=== PATIENT | female | born 1950 | race Caucasian/White ===

== ENCOUNTER 2016-05-05 18:15 | Inpatient (IN) | payer MEDICARE, OTHER ==
[~2016-05-05] VITALS: Ht 157.5 cm; Wt 166.2 kg
[2016-05-05 18:30] VITALS: BP 194/83
[2016-05-05] MEDS ORDERED: CYCLOBENZAPRINE 10 MG (FLEXERIL) TAB PO PRN (19:00)
[2016-05-05] MEDS ORDERED: ATORVASTATIN 20 MG (LIPITOR) TABLET PO SCH (21:00)
[2016-05-05] MEDS ORDERED: SIMvastatin 40 MG (ZOCOR) TAB PO SCH (21:00)
[2016-05-05] MEDS: inSUlin (REGULAR) HUMAN 1 UNIT/0.01 ML (CHARGE PER UNIT) SC SCH (21:43)
[2016-05-06 04:41] VITALS: BP 182/75
[2016-05-06] MEDS: inSUlin (REGULAR) HUMAN 1 UNIT/0.01 ML (CHARGE PER UNIT) SC SCH ×2 (05:48→10:45)
[2016-05-06] MEDS: GLIMEPIRIDE 2 MG (AMARYL) TAB PO SCH (06:46)
[2016-05-06] MEDS: LEVOTHYROXINE 150 MCG (LEVOTHROID) TAB PO SCH (06:46)
[2016-05-06 07:00] LABS: BASOPHILS % (AUTO) 0 % (0-10); EOSINOPHILS # (AUTO) 0.3 10^3/uL (0.0-0.3); EOSINOPHILS % (AUTO) 5 % (0-10); LYMPHOCYTES # (AUTO) 1.1 X 10^3 (1.0-4.0); LYMPHOCYTES % (AUTO) 20 % (12-44); MEAN CORPUSCULAR HEMOGLOBIN 27 PG (25-34); MEAN CORPUSCULAR HGB CONC 31 G/DL (32-36); MEAN CORPUSCULAR VOLUME 88 FL (80-99); MEAN PLATELET VOLUME 9.5 FL (7.4-10.4); MONOCYTES # (AUTO) 0.5 X 10^3 (0.0-1.0); MONOCYTES % (AUTO) 10 % (0-12); NEUTROPHILS # (AUTO) 3.3 X 10^3 (1.8-7.8); NEUTROPHILS % (AUTO) 65 % (42-75); PLATELET COUNT 260 10^3/uL (130-400); RED CELL DISTRIBUTION WIDTH 13.3 % (10.0-14.5); WHITE BLOOD COUNT 5.2 10^3/uL (4.3-11.0)
[2016-05-06] MEDS ORDERED: PIOGLITAZONE 30MG (ACTOS) TAB PO SCH (07:00)
[2016-05-06 07:23] LABS: ALBUMIN 2.9 G/DL (3.2-4.5); BILIRUBIN,TOTAL 0.5 MG/DL (0.1-1.0); CALCIUM 7.5 MG/DL (8.5-10.1); CREATININE SERUM 1.8 MG/DL (0.60-1.30); POTASSIUM 4.1 MMOL/L (3.6-5.0)
[2016-05-06] MEDS ORDERED: inSUlin NPH/REG (NovoLIN 70/30) CHARGE PER UNIT SQ SCH (08:45)
--- NOTE | 2016-05-06 08:57 | Physical Therapy Evaluation ---
PT Evaluation-General Medical Diagnosis Admission Date May 05, 2016 at 18:15 Medical Diagnosis: debility, post polio Onset Date: May 05, 2016 Therapy Diagnosis Therapy Diagnosis: impaired mobility, strength, endurance Height/Weight Height (Feet): 5 Height (Inches): 2.00 Weight (Pounds): 361 Weight (Ounces): 8.0 Precautions Precautions/Isolations: Fall Prevention, Standard Precautions Referral Physician: Tyler Reason for Referral: Evaluation/Treatment Medical History Pertinent Medical History: DM, HTN Additional Medical History morbid obesity, post polio Current History Patient was sitting down on the toilet and felt a "pop" and had pain in left leg. Could not get back up from the toilet. Reviewed History: Yes Social History Current Living Status: Other Family Entry Into Home: Ramp Patient states she has grandchildren living with her. She uses a scooter to get around the house and can ambulate just a few steps using bilateral axillary crutches. Prior/Core FIM Prior Level of Function Functional [place] Measure 0=Not Assessed/NA 4=Minimal Assistance 1=Total Assistance 5=Supervision or Setup 2=Maximal Assistance 6=Modified Baca 3=Moderate Assistance 7=Complete [place] Bed Mobility: 6 Transfers (B,C,W/C) (FIM): 6 Gait: 1 Wheelchair Mobility: 6 PT Evaluation-Current Subjective Patient in bed pre tx, agrees to PT. Patient states she has no pain at rest but with activity she has pain in her left lateral thigh. Pt/Family Goals get me better so I can go home Objective Patient Orientation: Normal For Age ROM/Strength ROM Lower Extremities general impaired ROM due to morbid obesity Strenght Lower Extremities right lower extremity (hip flexion 3/5, knee flexion 0/5, knee extension 0/5, dorsiflexion 0/5), left lower extremity (hip flexion 3-/5, knee flexion 2/5, knee extension 2/5, dorsiflexion 4/5) patient states she has never in her life been able to sit and fully extend her left knee Integumentary/Posture Bowel Incontinence: No Neuromuscular (Tone, Coordination, Reflexes) decreased tone and coordination in bilateral lower extremities Sensory Vision: Functional Hearing: Functional Sensation Right Lower Extremit: Intact Sensation Left Lower Extremity: Intact Transfers Functional Baca Measure 0=Not Assessed/NA 4=Minimal Assistance 1=Total Assistance 5=Supervision or Setup 2=Maximal Assistance 6=Modified [place] 3=Moderate Assistance 7=Complete IndependenceIRFPAI Quality Coding Scale 6 Independent with activity with or without an assistive device 5 Patient requires set up or clean up by helper. Patient completes activity by themselves 4 Supervision or touching assist (CGA). [place] provide cues , steadying assist 3 The helper provides less than half the effort to complete the activity 2 The helper provides more than half the effort to complete the activity 1 Dependent. The helper does all the effort to complete an activity 7 Patient refused to complete or attempt activity 9 The patient did not perform the activity before the current illness or injury 88 Not attempted due to Medical conditions or safety concerns Transfers (B, C, W/C) (FIM): 1 Scootin Rollin Roll Left to Right (QC): 3 Supine to/from Sit: 3 Sit to/from Stand: 1 bed t/f WC(FIM only if WC use): 1 Sit to Lying (QC): 2 Lying to Sitting/Side of Bed(Q: 2 Sit to Stand (QC): 1 Chair/Sle-yj-Ewpue Xfer(QC): 1 Car Transfer (QC): 88 Patient uses a sit to stand machine for standing and transfers. She was able to veterinary physiologist the parallel bars with max assist of 2 therapists. Gait Anticipated Mode of Locomotion: Wheelchair Gait (FIM): 0 Walk 10 feet (QC): 88 Walk 50 ft with 2 Turns(QC): 88 Walk 150 ft (QC): 88 Walking 10ft/uneven surface-QC: 88 Comments/Gait Description Patient states she ambulated a few feet using bilateral axillary crutches and it sounds like she uses them unsafely. She described angling them under her arms and using them to help push her forward and bearing weight through her armpits in order to stand. Wheelchair Training Does the Pt Use a Wheelchair?: Yes Wheelchair (FIM): 5 Distance: 150' Wheelchair Level of Assist: 5 Wheel 50 ft with 2 turns (QC): 4 Wheel 150 ft (QC): 4 Type of Wheelchair: Manual Patient was able to propel a manual wheelchair 150' including 2 turns with SBA. She did have some difficulty with the turns due to her weight but she was able to do it without assist. Stairs If not tested on admit;explain Patient not safe to attempt even one step at this time. Balance Sitting Static: Normal Sitting Dynamic: Normal Standing Static: Poor Standing Dynamic: Poor Treatment Patient stood in the parallel bars x 2 with max assist of 2 therapists. Assessment/Needs Patient has profoundly impaired mobility, strength, and endurance due to debility, obesity, and post polio syndrome. Rehab Potential: Poor PT Short Term Goals Short Term Goals Time Frame: May 13, 2016 Transfers (B,C,W/C) (FIM): 2 PT Casing Tester Goals Casing Tester Goals PT Casing Tester Goals Time Frame: May 27, 2016 Transfers (B,C,W/C) (FIM): 3 Sit to Lying (QC): 4 Lying-Sitting on Side/Bed(QC): 4 Sit to Stand (QC): 2 Rollin Roll Left to Right (QC): 4 Chair/Bab-ol-Jzyyh Xfer(QC): 2 Car Transfer (QC): 88 Wheelchair (FIM): 6 Distance: 200' Wheel 50 feet with 2 turns (QC: 6 PT Plan Problem List Problem List: Activity Tolerance, Functional Strength, Safety, Balance, Gait, Transfer, Bed Mobility, ROM Treatment/Plan Treatment Plan: Continue Plan of Care Treatment Plan: Bed Mobility, Education, Functional Activity Carol, Functional Strength, Group Therapy, Gait, Safety, Therapeutic Exercise, Transfers Treatment Duration: May 27, 2016 # of days/week 5-6 Visits Per Week: 10-11 Minutes/Day (M-F): 60-90 Minutes/Day (Sat/Herman): 15-30 Pt/Family Agrees w/Plan: Yes Safety Risks/Education Patient Education: Transfer Techniques, Correct Positioning, W/C Management, Safety Issues Teaching Recipient: Patient Teaching Methods: Demonstration, Discussion Response to Teaching: Reinforcement Needed Discharge Recommendations Plan Patient will perform bed mobility and transfers, balance and endurance training , functional strengthening, gait training, ROM/stretching, education, to improve functional mobility and independence at home. Therapy D/C Recommendations: Home w/ Family Support, Fpc (TCU/NH) Time/GCodes Time In: 800 Time Out: 900 Total Billed Treatment Time: 60 Total Billed Treatment 1 visit EVM 15 min [facility] 15 min FA 30 min LENORE EGAN PT May 06, 2016 08:57
[2016-05-06] MEDS ORDERED: VERAPAMIL PM 100 MG (VERELAN PM) CAP.SR.24H PO SCH (09:00)
[2016-05-06] MEDS: VERAPAMIL SR 240 MG (CALAN SR) TAB PO SCH (09:10)
[2016-05-06] MEDS: MICONAZOLE 2% POWDER (DESENEX AF) 90 GM TOP SCH ×2 (10:37→20:43)
[2016-05-06] MEDS ORDERED: INSN1U SQ (11:07)
[2016-05-06] MEDS ORDERED: TRAM50TA2 PO (11:07)
[2016-05-06] MEDS ORDERED: CALC-654 PO (11:07)
[2016-05-06] MEDS ORDERED: HYDR-3812 PO (11:07)
[2016-05-06] MEDS ORDERED: LEVO150T6 PO (11:07)
[2016-05-06] MEDS ORDERED: PEDI18TA2 PO (11:07)
[2016-05-06] MEDS ORDERED: INSU100V16 SQ (11:07)
[2016-05-06] MEDS ORDERED: SIMV40TA4 PO (11:07)
[2016-05-06] MEDS ORDERED: VERA240T98 PO (11:07)
[2016-05-06] MEDS ORDERED: GLIM2TAB PO (11:07)
[2016-05-06] MEDS ORDERED: OMG1KC PO (11:07)
[2016-05-06] MEDS ORDERED: PIOG30TA38 PO (11:07)
--- NOTE | 2016-05-06 11:07 | ST Cognitive Linguistic Eval ---
Speech Evaluation-General Medical Diagnosis debility, post polio Onset Date: May 05, 2016 Therapy Diagnosis Therapy Diagnosis: Questionable Cognitive Impairment Precautions Precautions/Isolations: Fall Prevention, Standard Precautions Referral Referring Physician: Dr. Manuel Scott Reason for Referral: Evaluation/Treatment Cognitive Evaluation Medical History Pertinent Medical History: DM, HTN Reviewed History: Yes Social History Current Living Status: Other Family Speech PLF-Current Status Prior Level of Function The patient denied challenges with cognition, speech, or language prior to or throughout her recent hospitalization. Subjective The patient was recently admitted to [facility] Rehabilitation unit with a diagnosis of debility. The patient greeted the clinician appropriately upon entrance and agreed to participate in the cognitive evaluation on this date. Language Eval: Auditory Comprehends Simple Yes/No Ques: Functional Indent/Objects Multiple Griffin: Functional Ident/Pics in Multiple Griffin: Functional Follows 1-Step Commands: Functional Follows Complex Directions: Functional Follows General Conversations: Functional Language Eval: Verbal Language Completes Spontaneous Greeting: Functional Produces Auto, Serial Info: Functional Imitates Simple Words/Phrases: Functional Word Finding: Functional Requests Basic Needs: Functional States Basic Personal Info: Functional Expresses Complex Ideas: Functional Cognitive Patient Orientation The patient is oriented to date, day of week, month, year, location, and name ( independently). Objective Cognitive Domain Attention: WNL Memory: WNL Problem Solving: Functional Executive Functions: WNL Objective Impression The patient demonstrated cognitive linguistic skills within normal limits for completion of ADL's. Communication/Social Cognition Comprehension: 6 Expression: 6 Social Interaction: 6 Problem Solvin Memory: 6 Speech Patient Assess Expression of Ideas/Wants: Expression (4) Understanding [place] Content: Understands (4) Brief Interview-Mental Status: Yes Repetition of Three Words: Three (3) Temporal Orientation: Year: Correct (3) Temporal Orientation: Month: Accurate within 5 days(2) Temporal Orientation: Day: Correct (1) Recall : Wear to say "Sock": Yes, no cue required (2) Recall : Color: Yes, no cue required (2) Recall : Bed: Yes, no cue required (2) Speech-Plan Treatment Plan Speech Therapy Treatment Plan: Discontinue ST Evaluation, only. Rehab Potential: Good Safety Risks/Education Teaching Recipient: Patient Teaching Methods: Discussion Response to Teaching: Verbalize Understanding Education Topics Provided: Plan of Care Time Speech Therapy Time In: 10:15 Speech Therapy Time Out: 10:30 Total Billed Time: 15 Billed Treatment Time 1, JEANNENDJARRETT HAMILTON May 06, 2016 11:07
--- NOTE | 2016-05-06 11:17 | HISTORY AND PHYSICAL ---
DATE OF ADMISSION: 05/05/2016 CHIEF COMPLAINT: Difficulty with walking. 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 She lives in a one-story house in [place], [place] caring for her grandchildren. She had a fall and had pain in her posterior left thigh which was her good leg. She is now dependent for mobility and complains of pain in the posterior left thigh with weight-bearing. 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 She also has chronic venostasis in both legs and they are wrapped. She is also insulin-dependent diabetic. No fracture was seen on imaging of the left leg. Accu-Cheks were being monitored q.i.d. before meals and at bedtime. A1c in February was 6.7. The patient indicates her blood sugars normally run in 250 to 200 range. She is morbidly obese PAST MEDICAL HISTORY: 1. Hypertension. 2. Insulin-dependent diabetes mellitus. 3. Post polio. PAST SURGICAL HISTORY: She indicates she has had tendon transfers on her right leg as a child for treatment of her polio which did not help her. She had been fairly dependent upon her left leg for stand- pivot transfers prior to her last fall. She brings her axillary crutches with her to the rehab unit where she was referred to [facility] for ongoing rehabilitation. ALLERGIES: PENICILLIN SOCIAL HISTORY: No alcohol or tobacco. She indicates that she has a handicap assessable wheelchair van with hand control. REVIEW OF SYSTEMS: Ten-point review of systems significant for chronic right leg weakness and left leg weakness and posterior thigh pain. She is currently mod assist for lower body dressing and set up for upper body dressing, SHe is mod assist for bathing and dependent for toileting. She is set up for eating and grooming at the wheelchair level of function. She has good + upper extremity strength and active range of motion.She is dependent for transfers and non- ambulatory Her H&H on 05/05 is 8.7/28.8, WBC 4.8. Platelet count 221,000. Her hemoglobin A1c on 05/04 is 7.6. Her serum triglycerides are 136, total cholesterol over HDL 5.1. Her BUN and creatinine on 05/05 was 46/2.1, albumin is 2.7, calcium 7.6 Her BNP 15. SOCIAL HISTORY: She states that her PCP is Dr. Hawkins in [place], [place]. MEDICATIONS: 1. NovoLog sliding scale insulin regimen A. 2. Novolin 70/30 50 units subcutaneous daily. 3. Glimepiride 2 mg p.o. daily. 4. Tramadol 50 mg p.o. q.6 hours as needed for moderate pain. 5. Hydrocodone APAP 5/325, 1 tablet p.o. q.4 hours p.r.n. severe pain. 6. Levothyroxine 100 mcg p.o. daily. 7. Pioglitazone 30 milligrams p.o. daily. 8. Verapamil ER 240 mg p.o. daily. 9. Simvastatin 40 mg p.o. daily. 10. Flexeril 10 mg p.o. t.i.d. p.r.n. spasm. PHYSICAL EXAMINATION: Significant for a morbidly obese female, appearing her stated age, alert and oriented in no acute distress, lying in bed. VITAL SIGNS: Within normal limits. She is afebrile. HEENT: Vision, speech, hearing, grossly intact. No oral lesion is noted. NECK: Supple without mass. HEART: Regular rhythm. CHEST: The chest is clear. ABDOMEN: Obese, soft, bowel sounds present.Fungal appearing rash under abdominal pannus EXTREMITIES: The patient has 2+ edema both legs and they are MISHA wrapped. MUSCULOSKELETAL: The patient has functional active range of motion and strength in both upper extremities, both lower extremities limited due to obesity, chronic venostasis and MISHA wrapping. NEUROLOGIC: Sensation is grossly intact to touch. Cognition appears intact. Strength as per above for upper extremities and lower extremities difficult to assess due to obesity, edema and wraps. She has 3/5 strength Rt Hip Flex and 0/5 distal RLE. Left Lower extremity strength hip flex 3-/5 knee flex 2/5 knee ext 2/5 dorsiflexion at ankle 4/5 There is tenderness in the posterior thigh region on the left.She has limited ROM Both lower extremities due to obesity and Peripheral edema IMPRESSION: 1. Ambulatory dysfunction secondary to post polio syndrome, aggravated by fall with resulting left posterior thigh pain, sciatica versus pyriformis syndrome 2. Morbid obesity. 3. Insulin-dependent diabetes mellitus. 4. Hypothyroidism on replacement. 5. Hypertension, controlled with medication. 6. Chronic venostasis both lower limbs, currently with MISHA wrap. 7. Anemia 8. Chronic renal insufficiency due to her diabetes mellitus and hypertension. 9. Hypoalbuminemia. 10. Hypocalcemia. 11. Fungal rash abdomen PLAN: The patient will have a comprehensive program of inpatient rehabilitation with goal of maximizing level of functional independence prior to discharge home with family and home health care. The patient will have PT/OT 90 minutes per day, each discipline, 5 days week for gait strengthening, conditioning, balance, ADLs, any patient/family/caregiver training necessary, any adaptive equipment and training necessary, modalities for pain control. Continue with Misha wraps to decrease peripheral edema. Will follow-up what is most appropriate for DVT prophylaxis most likely Lovenox subcutaneous; I don't know how she will tolerate SCDs. Speech therapy to do cognitive assessment and treat as indicated. Rehabilitation nursing assist with bowel, bladder, skin care, medication administration, MISHA wrap administration, pain management. office services specialist to assist with discharge planning, community reentry. Continue current diabetic diet. Consult Dr. Dunaway for medical management. Accu-Cheks q.i.d. before meals and at bedtime. Continue current medications, pain management. Consider dietary consult. office services specialist to assist with discharge planning, community reentry. ESTIMATED LENGTH OF STAY: Two to three weeks. PROGNOSIS: Rehab prognosis appears for goal of discharging home with prior level of function, hopefully home with her family with home health care. DIET: Carb consistent. CODE STATUS: Full code. POST ADMISSION ASSESSMENT: The preadmission screen agrees with the post admission assessment that the patient is a good candidate for inpatient rehabilitation. She appears to be well motivated to participate in 3 hours of therapy a day. He should be able tolerate 3 hours of therapy a day. She should benefit from the 3 hours of therapy a day. She has reasonable discharge plan, reasonable discharge rehabilitation goals and a supportive family. She has various comorbidities that need to be closely monitored with medications and treatments adjusted on a daily basis as needed. These include ongoing pain management, management of her diabetes mellitus, hypertension and morbid obesity. Barriers to discharge for this patient who was reported to have been modified independent prior to this is for her to be modified independent to supervision for ADLs, mobility skills prior to discharge home with family and home health care. Risks for this patient include: 1. Recurrent fall. 2. Fracture. 3. DVT. 4. Pulmonary embolism. 5. Urinary retention. 6. UTI. 7. Respiratory infection. 8. Aspiration. 9. Skin breakdown. 10. Contractures. 11. Poorly controlled pain. 12. Diabetes mellitus. 13. And poorly controlled hypertension. Job ID: [id number] Dictated Date: 05/05/2016 19:17:22 General Counselor Date: 05/06/2016 10:33:18/stanton TERRELL
--- NOTE | 2016-05-06 11:53 | Occupational Therapy Eval ---
OT Evaluation-General/PLF Medical Diagnosis Admission Date May 05, 2016 at 18:15 Medical Diagnosis: debility, post polio Onset Date: May 03, 2016 Therapy Diagnosis Therapy Diagnosis: decr self care, decr activity ada, weakness, decr funct mobility Height/Weight Height (Feet): 5 Height (Inches): 2.00 Weight (Pounds): 361 Weight (Ounces): 8.0 Precautions Precautions/Isolations: Fall Prevention, Standard Precautions Safety Interventions: Reorient-PRN Weight Bear Status Weight Bearing Restriction: Weight Bearing/Tolerated Referral Physician: Tyler Referral Reason: Evaluation/Treatment Medical History Pertinent Medical History: DM, HTN, Hypothroidism, Renal Insufficiency (chronic ) Additional Medical History Chronic venous stasis bilat LEs, morbid obesity, anemia, hypoalbuminemia, hypocalcemia Current History Fell at home, admitted to [facility]. Has post polio syndrome R LE and piriformis syndrome (polio at 6 months of age) Reviewed History: Yes Social History Home: Single Level Current Living Status: Other Family Entry Into Home: Ramp ADL-Prior Level of Function ADL PLOF Comments Pt reported that she has been able to manage all of her basic self care needs except she occasionally needs help getting socks on R foot. She also does all her IADLs except vacuuming and drives an accessible van with hand controls from her power chair. She transfers at home with crutches and gets around in her home with power chair. She sleeps in her recliner. 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 Pain rated 0/10 Appearance Alert, cooperative Mental Status/Objective Patient Orientation: Person, Place, Time, Situation Current Glasses/Contacts: Yes Hearing Aids: No Dentures/Partials: No Hand Dominance: Right Upper Extremity ROM Grossly WFL bilat. Some arthritic changes in hands Upper Extremity Strength grossly 4+/5 bilat but not strong enough to do transfers with crutches Edema: Bilat hronic edema in lower legs, wrapped in sherwin wraps today ADL-Treatment Functional [place] Measure 0=Not Assessed/NA 4=Minimal Assistance 1=Total Assistance 5=Supervision or Setup 2=Maximal Assistance 6=Modified [place] 3=Moderate Assistance 7=Complete IndependenceIRFPAI Quality Coding Scale 6 Independent with activity with or without an assistive device 5 Patient requires set up or clean up by helper. Patient completes activity by themselves 4 Supervision or touching assist (CGA). Rose provide cues , steadying assist 3 The helper provides less than half the effort to complete the activity 2 The helper provides more than half the effort to complete the activity 1 Dependent. The helper does all the effort to complete an activity 7 Patient refused to complete or attempt activity 9 The patient did not perform the activity before the current illness or injury 88 Not attempted due to Medical conditions or safety concerns Eating (FIM): 7 (No dentures. Able to cut food and get it to her mouth without assistance or devices) Eating (QC): 6 Grooming (FIM): 5 (Setup, at sink, to brush teeth and comb hair. Washed face and hands in shower,s etup. No makeup) Oral Hygiene (QC): 5 Bathing (FIM): 4 (80% Able to wash and dry all parts except lwoer legs, in wheeled shower chair. Grab bars, hand held shower. Able to lift tummy and wash underneath it. At home lifts feet up on edge of bathtub to wash them as she is getting out of the shower. Does not use long handled brush on lower legs) Bathing Location: L Arm, R Arm, L Upper Leg, R Upper Leg, Chest, Abdomen, Buttocks, Perineal Area Shower/Bathe Self (QC): 3 Upper Body Dressing (FIM): 5 (Setup. Hooked bra in back and turned it around. Shirt over head without help) Upper Body Dressing (QC): 3 Lower Body Dressing (FIM): 3 (Does not wear under pants. Able to don skirt on over head with setup but not able to get slipper socks on or off feet. ) Lower Body Dressing (QC): 5 (Setup. Wears only skirts - no underwear) On/Off Footwear (QC): 1 (Dependant) Toileting (FIM): 1 (Unable to manage clothing, hygiene. Bariatric BSC, using sit to stand lift) Toileting Hygiene (QC): 1 Transfers (B, C, W/C) (FIM): 1 (Sit to stand lift) Toilet/Commode Transfer (FIM): 1 (Sit to stand lift, to bariatric BSC) Toilet Transfer (QC): 1 Shower Transfer (FIM): 1 (Sit to stand lift to wheeled shower chair, then transported to shower room) Other Treatments Pt was transferred back into bed with sit to stand lift, two people needed to pull her up in bed. $ rails up, all needs met Education OT Patient Education: Modified ADL techniques, Progress toward Goal/Update tx plan, Purpose of tx/functional activities, Rehab process, Safety issues, Transfer techniques, Use of adapted equipment Teaching Recipient: Patient Teaching Methods: Demonstration, Discussion Response to Teaching: Verbalize Understanding, Return Demonstration, Reinforcement Needed OT Short Term Goals Short Term Goals Time Frame: May 13, 2016 Lower Body Dressing(FIM): 4 Toileting(FIM): 3 Toilet/Commode Transfer(FIM): 2 Additional Short Term Goals: 2-Verbalize Understanding, 3-ImproveStrength/Carol 1=Demonstrate adherence to instructed precautions during ADL tasks. 2=Patient will verbalize/demonstrate understanding of assistive devices/ modifications for ADL. 3=Patient will improve strength/tolerance for activity to enable patient to perform ADL's. OT Strapper Operator Goals Skilled Nursing Goals Time Frame: May 27, 2016 Eating (FIM): 7 Eating (QC): 6 Groomin Oral Hygiene (QC): 6 Bathing(FIM): 5 Shower/Bathe Self (QC): 5 Upper Body Dressing(FIM): 6 Upper Body Dressing (QC): 6 Lower Body Dressing(FIM): 6 Lower Body Dressing (QC): 6 On/Off Footwear (QC): 6 Toileting(FIM): 6 Toileting Hygiene (QC): 6 Toilet/Commode Transfer(FIM): 6 Toilet/Commode Transfer (QC): 6 Shower Transfer(FIM): 6 Additional Goals: 2-Verbalize Understanding, 3-ImproveStrength/Carol 1=Demonstrate adherence to instructed precautions during ADL tasks. 2=Patient will verbalize/demonstrate understanding of assistive devices/ modifications for ADL. 3=Patient will improve strength/tolerance for activity to enable patient to perform ADL's. OT Education/Plan Problem List/Assessment Assessment: Decreased Activ Tolerance, Decreased UE Strength, Dependent Transfers, Impaired Bed Mobility, Impaired Funct Balance, Impaired Self-Care Skills Pt would benefit from skilled OT to increase her independence in basic transfers and self care to allow her to safely return to her home to live independently and decrease caregiver burden Discharge Recommendations Plan/Recommendations: Continue POC Target Placement home Treatment Plan/Plan of Care Treatment,Training & Education: Yes Patient would benefit from OT for education, treatment and training to promote independence in ADL's, mobility, safety and/or upper extremity function for ADL' s. Plan of Care: ADL Retraining, Functional Mobility, Group Exercise/Act as Ind ( education, exercise, activity tolerance, functional activities, socialization), UE Funct Exercise/Act, UE Neuromus Re-Ed/Coord, W/C Management Training Treatment Duration: May 27, 2016 # of days/week 5-6 Visits Per Week: 10-11 Minutes/Day (M-F): 75-90 Agreement: Yes Rehab Potential: Good Time/GCodes Start Time: 09:00 Stop Time: 10:15 Total Time Billed (hr/min): 75 Billed Treatment Time visit, 15 minutes evaluation high complexity, 60 minutes ADL RADHA LIN OT May 06, 2016 11:53
[2016-05-06] MEDS ORDERED: inSUlin ASPART (NovoLOG) 1 UNIT/0.01 ML (CHARGE PER UNIT) SC SCH (16:00)
[2016-05-06] MEDS ORDERED: inSUlin ASPART (NovoLOG) 1 UNIT/0.01 ML (CHARGE PER UNIT) SQ SCH (16:00)
--- NOTE | 2016-05-06 16:26 | Therapy Group Daily Note ---
Therapy Daily Group Note Patient Education Topic Other List Below (Frality Syndrome and Prevention) Exercises LE Seated Exercise, UE Exercise Other/Notes PT used sit to stand lift to transfer pt from bed to W/C. Pt maneuvered w/c to [facility] for group. Pt actively participated in OT/PT group. Group consisted of introductions (name, place living, place you'd rather be instead of here), socialization, education on Frailty Syndrome and prevention, UE/LE seated exercises with resistance and other benefits of exercise. Pt contributed to discussions appropriately and demonstrated knowledge of topic by answering verbal questions. Pt was able to complete UE/LE seated exercises. After therapy, pt sitting in w/c asked to use BSC. PT and nursing transferred pt from W/C to BSC to use. Pt left with call light and all needs met. Start Time: 13:00 Stop Time: 14:10 Total Billed Treatment Time: 70 Total Billed Treatment 1, GRP NELYARACELIS NOLAND ASSOCIATE PROFESSOR OF GEOLOGY May 06, 2016 16:26
[2016-05-06 17:40] VITALS: BP 165/78
[2016-05-06] MEDS: inSUlin ASPART (NovoLOG) 1 UNIT/0.01 ML (CHARGE PER UNIT) SQ SCH (17:59)
--- NOTE | 2016-05-06 18:13 | PM & R (SOAP) Progress Note ---
Subjective Subjective/Events-last exam Patient was seen in HER ROOM THIS am aDJUSTING WEEL TO UNIT rn CHANGED MISHA WRAPS TODAY mEDS ADJUSTED BY cLINICAL pHARMACIST dISCUSSED CASE WITH HIM AND dr Barnes pATIENT MOD ASSIST FOR TRANSFERS.Current labs noted.Discussed case with RN Topical care for area under abdominal pannus. Objective Exam Last Set of Vital Signs Vital Signs Date Time Temp Pulse Resp B/P Pulse Ox O2 Delivery O2 Flow Rate FiO2 05/06/16 09:00 Room Air 05/06/16 04:41 97.6 82 20 182/75 97 Capillary Refill : I&O Bad tableGeneral: Alert, Oriented X3, Cooperative, No Acute Distress HEENT: Atraumatic, PERRLA, EOMI, Mucous Memb Moist/[place] Neck: Supple Lungs: Clear to Auscultation Heart: Regular Rate Abdomen: Normal Bowel Sounds, Soft, No Tenderness Extremities: Other (chronic venousstasis with legs wrapped) Neuro: Other (Weaknees both lower extremities Rt >lleft with tenderness left post thigh) Results Lab Laboratory Tests 05/05/16 21:36: Glucometer 203H 05/06/16 05:18: Glucometer 148H 05/06/16 06:26: Alanine Aminotransferase (ALT/SGPT) 19, Albumin 2.9L, Alkaline Phosphatase 66, Anion Gap 10, Aspartate Amino Transf (AST/SGOT) 24, BUN/Creatinine Ratio 22, Basophils # (Auto) 0.0, Basophils (%) (Auto) 0, Blood Urea Nitrogen 39H, Calcium Level 7.5L, Carbon Dioxide Level 20L, Chloride Level 111H, Creatinine 1.80H, Eosinophils # (Auto) 0.3, Eosinophils (%) (Auto) 5, Estimat Glomerular Filtration Rate 28, Glucose Level 155H, Hematocrit 28L, Hemoglobin 8.7L, Lymphocytes # (Auto) 1.1, Lymphocytes (%) (Auto) 20, Mean Corpuscular Hemoglobin 27, Mean Corpuscular Hemoglobin Concent 31L, Mean Corpuscular Volume 88, Mean Platelet Volume 9.5, Monocytes # (Auto) 0.5, Monocytes (%) (Auto) 10, Neutrophils # (Auto) 3.3, Neutrophils (%) (Auto) 65, Platelet Count 260, Potassium Level 4.1, Red Blood Count 3.20L, Red Cell Distribution Width 13.3, Sodium Level 141, Total Bilirubin 0.5, Total Protein 6.0L, White Blood Count 5.2 05/06/16 10:44: Glucometer 189H 05/06/16 15:28: Glucometer 117H Assessment/Plan Assessment Post-polio syndrome Fall with left leg pain IDDM Morbid obesity Chronic venous stasis BLES Plan Continue PT/OT ST has signed off Blood pressure elevated-DR Barnes to see Team CONference hedl earlier today See report for full functional update and POC and ELOS Adjust meds as needed Continue Misha wraps NILDA DYER MD May 06, 2016 18:13
[2016-05-06] MEDS: ATORVASTATIN 10 MG (LIPITOR) TABLET PO SCH (20:43)
[2016-05-06] MEDS: inSUlin ASPART (NovoLOG) 1 UNIT/0.01 ML (CHARGE PER UNIT) SC SCH (21:00)
[2016-05-06] MEDS ORDERED: SIMvastatin 40 MG (ZOCOR) TAB PO SCH (21:00)
[2016-05-07 04:08] VITALS: BP 160/73
[2016-05-07 05:53] LABS: BASOPHILS % (AUTO) 0 % (0-10); EOSINOPHILS # (AUTO) 0.2 10^3/uL (0.0-0.3); EOSINOPHILS % (AUTO) 4 % (0-10); LYMPHOCYTES # (AUTO) 1.1 X 10^3 (1.0-4.0); LYMPHOCYTES % (AUTO) 23 % (12-44); MEAN CORPUSCULAR HEMOGLOBIN 28 PG (25-34); MEAN CORPUSCULAR HGB CONC 31 G/DL (32-36); MEAN CORPUSCULAR VOLUME 88 FL (80-99); MEAN PLATELET VOLUME 9.2 FL (7.4-10.4); MONOCYTES # (AUTO) 0.5 X 10^3 (0.0-1.0); MONOCYTES % (AUTO) 9 % (0-12); NEUTROPHILS # (AUTO) 3.1 X 10^3 (1.8-7.8); NEUTROPHILS % (AUTO) 63 % (42-75); PLATELET COUNT 249 10^3/uL (130-400); RED BLOOD COUNT 3.09 10^6/uL (4.35-5.85); RED CELL DISTRIBUTION WIDTH 13.2 % (10.0-14.5); WHITE BLOOD COUNT 4.9 10^3/uL (4.3-11.0)
[2016-05-07] MEDS: inSUlin ASPART (NovoLOG) 1 UNIT/0.01 ML (CHARGE PER UNIT) SC SCH ×4 (06:00→20:38)
[2016-05-07 06:10] LABS: ALBUMIN 2.9 G/DL (3.2-4.5); BILIRUBIN,TOTAL 0.5 MG/DL (0.1-1.0); CALCIUM 7.5 MG/DL (8.5-10.1); CREATININE SERUM 1.63 MG/DL (0.60-1.30); TOTAL PROTEIN 5.9 G/DL (6.4-8.2)
[2016-05-07] MEDS: LEVOTHYROXINE 150 MCG (LEVOTHROID) TAB PO SCH (06:35)
[2016-05-07] MEDS: GLIMEPIRIDE 2 MG (AMARYL) TAB PO SCH (06:35)
[2016-05-07] MEDS: PIOGLITAZONE 30MG (ACTOS) TAB PO SCH (06:35)
[2016-05-07] MEDS: inSUlin ASPART (NovoLOG) 1 UNIT/0.01 ML (CHARGE PER UNIT) SQ SCH ×3 (06:36→16:00)
[2016-05-07] MEDS ORDERED: inSUlin NPH (NovoLIN N) 1 UNIT/0.01 ML (CHARGE PER UNIT) SQ SCH (07:00)
--- NOTE | 2016-05-07 07:11 | Progress Note (SOAP) ---
Subjective Subjective/Events-last exam patient has post polio syndrome and now persistent weakness of the right leg. Patient had a fall in the bathroom and landed on the stools and hurt the left thigh. Patient has polio the right leg and had surgery on. Patient has motorized wheelchair and uses crutches 1 into the restroom and fell on the stool. Left leg polyp and gave way and now hurts. Family history father diabetic mother and father heart attack. Denies asthma TB lung disease cancer area Patient has a history of ambulatory dysfunction. Diabetes. Hypothyroid. Hypertension. Chronic renal insufficiency. Morbid obesity Objective Exam Vital Signs Date Time Temp Pulse Resp B/P Pulse Ox O2 Delivery O2 Flow Rate FiO2 05/07/16 04:08 96.8 85 20 160/73 97 Room Air 05/06/16 20:30 Room Air 05/06/16 17:40 96.8 74 18 165/78 100 Room Air 05/06/16 09:00 Room Air I & O 05/07/16 07:00 Intake Total 1160 ml Balance 1160 ml Capillary Refill : General Appearance: No Apparent Distress WD/WN HEENT: Normal ENT Inspection Neck: Full Range of Motion Normal Inspection Respiratory: Chest Non Tender Lungs Clear Normal Breath Sounds No Accessory Muscle Use No Respiratory Distress Cardiovascular: Regular Rate, Rhythm No Murmur Gastrointestinal: non tender soft Results Lab Laboratory Tests 05/06/16 10:44: Glucometer 189H 05/06/16 15:28: Glucometer 117H 05/06/16 20:46: Glucometer 81 05/07/16 05:40: Alanine Aminotransferase (ALT/SGPT) 21, Albumin 2.9L, Alkaline Phosphatase 69, Anion Gap 11, Aspartate Amino Transf (AST/SGOT) 30, BUN/Creatinine Ratio 22, Basophils # (Auto) 0.0, Basophils (%) (Auto) 0, Blood Urea Nitrogen 36H, Calcium Level 7.5L, Carbon Dioxide Level 20L, Chloride Level 112H, Creatinine 1.63H, Eosinophils # (Auto) 0.2, Eosinophils (%) (Auto) 4, Estimat Glomerular Filtration Rate 32, Glucose Level 66L, Hematocrit 27L, Hemoglobin 8.5L, Lymphocytes # (Auto) 1.1, Lymphocytes (%) (Auto) 23, Mean Corpuscular Hemoglobin 28, Mean Corpuscular Hemoglobin Concent 31L, Mean Corpuscular Volume 88, Mean Platelet Volume 9.2, Monocytes # (Auto) 0.5, Monocytes (%) (Auto) 9, Neutrophils # (Auto) 3.1, Neutrophils (%) (Auto) 63, Platelet Count 249, Potassium Level 4.0, Red Blood Count 3.09L, Red Cell Distribution Width 13.2, Sodium Level 143, Total Bilirubin 0.5, Total Protein 5.9L, White Blood Count 4.9 05/07/16 05:41: Glucometer 66L Assessment/Plan Assessment/Plan Assess & Plan/Chief Complaint pain in the left thigh causing difficulty in getting around better Postpolio syndrome. Ambulatory dysfunction. Diabetes. Hypothyroid. Hypertension. Chronic renal insufficiency area Diagnosis/Problems: Clinical Quality Measures DVT/VTE Risk/Contraindication: Risk Factor Score Per Nursin RFS Level Per Nursing on Admit: 4+=Very High ERASTO TRAMMELL DO May 07, 2016 07:10
--- NOTE | 2016-05-07 08:17 | PM & R (SOAP) Progress Note ---
Subjective Subjective/Events-last exam Patient was seen in her room this AM Patient Max assist of 2 to washing tub operator the // Bars Objective Exam Last Set of Vital Signs Vital Signs Date Time Temp Pulse Resp B/P Pulse Ox O2 Delivery O2 Flow Rate FiO2 05/07/16 04:08 96.8 85 20 160/73 97 Room Air Capillary Refill : I&O Intake and Output 05/06/16 23:59 Intake Total 1210 ml Balance 1210 ml Intake Oral 1210 ml # Voids 6 # Bowel Movements 2 General: Alert, Oriented X3, Cooperative, No Acute Distress HEENT: Atraumatic, PERRLA, EOMI, Mucous Memb Moist/[place] Neck: Supple Lungs: Clear to Auscultation Heart: Regular Rate Abdomen: Normal Bowel Sounds, Soft, No Tenderness Extremities: Other (chronic venousstasis with legs wrapped) Neuro: Other (Weaknees both lower extremities Rt >lleft with tenderness left post thigh) Results Lab Laboratory Tests 05/05/16 21:36: Glucometer 203H 05/06/16 05:18: Glucometer 148H 05/06/16 06:26: Alanine Aminotransferase (ALT/SGPT) 19, Albumin 2.9L, Alkaline Phosphatase 66, Anion Gap 10, Aspartate Amino Transf (AST/SGOT) 24, BUN/Creatinine Ratio 22, Basophils # (Auto) 0.0, Basophils (%) (Auto) 0, Blood Urea Nitrogen 39H, Calcium Level 7.5L, Carbon Dioxide Level 20L, Chloride Level 111H, Creatinine 1.80H, Eosinophils # (Auto) 0.3, Eosinophils (%) (Auto) 5, Estimat Glomerular Filtration Rate 28, Glucose Level 155H, Hematocrit 28L, Hemoglobin 8.7L, Lymphocytes # (Auto) 1.1, Lymphocytes (%) (Auto) 20, Mean Corpuscular Hemoglobin 27, Mean Corpuscular Hemoglobin Concent 31L, Mean Corpuscular Volume 88, Mean Platelet Volume 9.5, Monocytes # (Auto) 0.5, Monocytes (%) (Auto) 10, Neutrophils # (Auto) 3.3, Neutrophils (%) (Auto) 65, Platelet Count 260, Potassium Level 4.1, Red Blood Count 3.20L, Red Cell Distribution Width 13.3, Sodium Level 141, Total Bilirubin 0.5, Total Protein 6.0L, White Blood Count 5.2 05/06/16 10:44: Glucometer 189H 05/06/16 15:28: Glucometer 117H 05/06/16 20:46: Glucometer 81 05/07/16 05:40: Alanine Aminotransferase (ALT/SGPT) 21, Albumin 2.9L, Alkaline Phosphatase 69, Anion Gap 11, Aspartate Amino Transf (AST/SGOT) 30, BUN/Creatinine Ratio 22, Basophils # (Auto) 0.0, Basophils (%) (Auto) 0, Blood Urea Nitrogen 36H, Calcium Level 7.5L, Carbon Dioxide Level 20L, Chloride Level 112H, Creatinine 1.63H, Eosinophils # (Auto) 0.2, Eosinophils (%) (Auto) 4, Estimat Glomerular Filtration Rate 32, Glucose Level 66L, Hematocrit 27L, Hemoglobin 8.5L, Lymphocytes # (Auto) 1.1, Lymphocytes (%) (Auto) 23, Mean Corpuscular Hemoglobin 28, Mean Corpuscular Hemoglobin Concent 31L, Mean Corpuscular Volume 88, Mean Platelet Volume 9.2, Monocytes # (Auto) 0.5, Monocytes (%) (Auto) 9, Neutrophils # (Auto) 3.1, Neutrophils (%) (Auto) 63, Platelet Count 249, Potassium Level 4.0, Red Blood Count 3.09L, Red Cell Distribution Width 13.2, Sodium Level 143, Total Bilirubin 0.5, Total Protein 5.9L, White Blood Count 4.9 05/07/16 05:41: Glucometer 66L Assessment/Plan Assessment Post-polio syndrome Fall with left leg pain IDDM Morbid obesity Chronic venous stasis BLES wraps in place RN reports no skin breakdown seen during change of wraps Plan Continue PT/OT ST has signed off Blood pressure elevated-DR Dunaway has seen Team CONference held yesterday See report for full functional update and POC and ELOS Adjust meds as needed Continue Misha imaniaps NILDA DYER MD May 07, 2016 08:17
[2016-05-07] MEDS: VERAPAMIL SR 240 MG (CALAN SR) TAB PO SCH (08:28)
[2016-05-07] MEDS: MICONAZOLE 2% POWDER (DESENEX AF) 90 GM TOP SCH ×2 (08:28→20:45)
--- NOTE | 2016-05-07 08:56 | Physical Therapy Daily Note ---
PT Daily Note-Current Subjective Patient in bed pre tx, dressed and ready. Patient has no pain at rest, but severe pain in left thigh when standing. Appearance Patient in wheelchair at bedside post tx with nurse call, phone, tray, all needs met. Has OT right after PT. Mental Status Patient Orientation: Normal For Age Transfers Functional [place] Measure 0=Not Assessed/NA 4=Minimal Assistance 1=Total Assistance 5=Supervision or Setup 2=Maximal Assistance 6=Modified [place] 3=Moderate Assistance 7=Complete IndependenceIRFPAI Quality Coding Scale 6 Independent with activity with or without an assistive device 5 Patient requires set up or clean up by helper. Patient completes activity by themselves 4 Supervision or touching assist (CGA). [place] provide cues , steadying assist 3 The helper provides less than half the effort to complete the activity 2 The helper provides more than half the effort to complete the activity 1 Dependent. The helper does all the effort to complete an activity 7 Patient refused to complete or attempt activity 9 The patient did not perform the activity before the current illness or injury 88 Not attempted due to Medical conditions or safety concerns Transfers (B, C, W/C) (FIM): 3 Scootin Rollin Supine to/from Sit: 3 Sit to/from Stand: 3 Bed to/from Chair: 1 Patient needs assist with both legs getting into and out of bed. She performs transfers with a sit to stand machine. Wheelchair Training Does the Pt Use a Wheelchair?: Yes Wheelchair (FIM): 5 Distance: 150'x2 Wheelchair Level of Assist: 5 Type of Wheelchair: Manual Patient propels a wheelchair slowly and needs an occasional rest break but she is able to go 150' with several turns. Exercises Seated Therapy Exercises: Ankle pumps, Long arc quads, Hip flexion, Hip abd/add , Glut set Seated Reps: 20 seated quad sets with therapist holding leg out strait x 20, patient sit to internal grinder parallel bars x2, and then sit to stand x 3 with crutches, she was not able to stand completely with crutches even with therapist assist, bilateral PROM gastroc stretching Treatments bed mobility and transfers, wheelchair mobility, functional strengthening, ROM Assessment Current Status: Fair Progress patient can almost stand using crutches and therapist assist but would not be able to stand on her own at this time PT Short Term Goals Short Term Goals Time Frame: May 13, 2016 Wheelchair Distance: 150' PT Group Home Goals Certified Family Mediator Goals PT Certified Family Mediator Goals Time Frame: May 27, 2016 Transfers (B,C,W/C) (FIM): 3 Sit to Lying (QC): 4 Lying-Sitting on Side/Bed(QC): 4 Sit to Stand (QC): 2 Rollin Roll Left to Right (QC): 4 Chair/[id number] Xfer(QC): 2 Car Transfer (QC): 88 Wheelchair (FIM): 6 Distance: 200' Wheel 50 feet with 2 turns (QC: 6 PT Plan Problem List Problem List: Activity Tolerance, Functional Strength, Safety, Balance, Gait, Transfer, Bed Mobility, ROM Treatment/Plan Treatment Plan: Continue Plan of Care Treatment Plan: Bed Mobility, Education, Functional Activity Carol, Functional Strength, Group Therapy, Gait, Safety, Therapeutic Exercise, Transfers Treatment Duration: May 27, 2016 Visits Per Week: 10-11 Minutes/Day (M-F): 60-90 Minutes/Day (Sat/[place]): 15-30 Safety Risks/Education Patient Education: Transfer Techniques, Correct Positioning, W/C Management, Safety Issues Teaching Recipient: Patient Teaching Methods: Demonstration, Discussion Response to Teaching: Reinforcement Needed Time/GCodes Time In: 800 Time Out: 900 Total Billed Treatment Time: 60 Total Billed Treatment 1 visit [facility] 15 min EX 15 min FA 30 min LENORE EGAN PT May 07, 2016 08:56
--- NOTE | 2016-05-07 11:02 | Occupational Ther Daily Note ---
OT Current Status-Daily Note Subjective Pt seen in room, up in w/c, agreeable to OT. No pain mentioned. Appearance Alert, cooperative Mental Status/Objective Functional [place] Measure 0=Not Assessed/NA 4=Minimal Assistance 1=Total Assistance 5=Supervision or Setup 2=Maximal Assistance 6=Modified [place] 3=Moderate Assistance 7=Complete [place] ADL-Treatment Functional [place] Measure 0=Not Assessed/NA 4=Minimal Assistance 1=Total Assistance 5=Supervision or Setup 2=Maximal Assistance 6=Modified [place] 3=Moderate Assistance 7=Complete IndependenceIRFPAI Quality Coding Scale 6 Independent with activity with or without an assistive device 5 Patient requires set up or clean up by helper. Patient completes activity by themselves 4 Supervision or touching assist (CGA). [place] provide cues , steadying assist 3 The helper provides less than half the effort to complete the activity 2 The helper provides more than half the effort to complete the activity 1 Dependent. The helper does all the effort to complete an activity 7 Patient refused to complete or attempt activity 9 The patient did not perform the activity before the current illness or injury 88 Not attempted due to Medical conditions or safety concerns Toileting (FIM): 3 Toilet/Commode Transfer (FIM): 1 Other Treatment Pt propelled herself part of the way to the gym (about 50 feet) for UE strengthening. In gym, did 12 minutes bilat UE exercise with arm bike set at 12W resistance, with no breaks. Also did bilat strengthening activities with 1# weight on each arm (arc, nuts and bolts, pegs, graded clothes pins). With 2# free weight did 2 sets of 10 reps bilat UE ex working on shoulders, elbows, forearms and wrists, with pt education on the different exercises. 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 Pt returned to room, toileted (transfer by sit to stand lift to [facility]) with help to wipe and transferred to bed to elevate legs. All needs met, 4 rails up. OT Short Term Goals Short Term Goals Time Frame: May 13, 2016 Lower Body Dressing(FIM): 4 Toileting(FIM): 3 Toilet/Commode Transfer(FIM): 2 Additional Short Term Goals: 2-Verbalize Understanding, 3-ImproveStrength/Carol 1=Demonstrate adherence to instructed precautions during ADL tasks. 2=Patient will verbalize/demonstrate understanding of assistive devices/ modifications for ADL. 3=Patient will improve strength/tolerance for activity to enable patient to perform ADL's. OT Long-Term Goals Long-Term Goals Time Frame: May 27, 2016 1=Demonstrate adherence to instructed precautions during ADL tasks. 2=Patient will verbalize/demonstrate understanding of assistive devices/ modifications for ADL. 3=Patient will improve strength/tolerance for activity to enable patient to perform ADL's. OT Education/Plan Problem List/Assessment Pt would benefit from skilled OT to increase her independence in basic transfers and self care to allow her to safely return to her home to live independently and decrease caregiver burden Discharge Recommendations Plan/Recommendations: Continue POC Treatment Plan/Plan of Care Patient would benefit from OT for education, treatment and training to promote independence in ADL's, mobility, safety and/or upper extremity function for ADL' s. Plan of Care: ADL Retraining, Functional Mobility, Group Exercise/Act as Ind ( education, exercise, activity tolerance, functional activities, socialization), UE Funct Exercise/Act, UE Neuromus Re-Ed/Coord, W/C Management Training Treatment Duration: May 27, 2016 Visits Per Week: 10-11 Minutes/Day (M-F): 75-90 Agreement: Yes Rehab Potential: Good Time/GCodes Start Time: 09:05 Stop Time: 10:40 Total Time Billed (hr/min): 95 Billed Treatment Time visit, 80 minutes exercise, 15 minutes ADL RADHA LIN OT May 07, 2016 11:02
--- NOTE | 2016-05-07 15:02 | Physical Therapy Daily Note ---
PT Daily Note-Current Subjective Agreeable to PT. Reports her arms are tired from a hard OT workout this morning. Expresses that she really wants to get home, she is raising her grandchildren and relying on friends to take care of them right now. Transfers Functional [place] Measure 0=Not Assessed/NA 4=Minimal Assistance 1=Total Assistance 5=Supervision or Setup 2=Maximal Assistance 6=Modified [place] 3=Moderate Assistance 7=Complete IndependenceIRFPAI Quality Coding Scale 6 Independent with activity with or without an assistive device 5 Patient requires set up or clean up by helper. Patient completes activity by themselves 4 Supervision or touching assist (CGA). [place] provide cues , steadying assist 3 The helper provides less than half the effort to complete the activity 2 The helper provides more than half the effort to complete the activity 1 Dependent. The helper does all the effort to complete an activity 7 Patient refused to complete or attempt activity 9 The patient did not perform the activity before the current illness or injury 88 Not attempted due to Medical conditions or safety concerns Pt transferred to EOB with max assist for right LE and HOB elevated, pt able to lift her trunk and turn her body to sit on the side. Sit to stand lift used to transfer to the wheelchair. Pt propelled wheelchair x 50 ft with B UE's. Sit to stand x 3 in // bars with max assist and blocking right LE. Able to come to near full stand with weight bearing through the left LE and heavy use of arms; once, up able to maintain approx 20 sec. Pt in wheelchair in sitting area post treatment. Assessment Current Status: Fair Progress Pt very cooperative and participatory and motivated to improve. Still needs much asssit with standing and unable to attempt a SPT at this time. PT Short Term Goals Short Term Goals Time Frame: May 13, 2016 Wheelchair Distance: 150'x2 PT Penitentiary Goals Penitentiary Goals PT Penitentiary Goals Time Frame: May 27, 2016 Transfers (B,C,W/C) (FIM): 3 Sit to Lying (QC): 4 Lying-Sitting on Side/Bed(QC): 4 Sit to Stand (QC): 2 Rollin Roll Left to Right (QC): 4 Chair/Cvs-fr-Syxhf Xfer(QC): 2 Car Transfer (QC): 88 Wheelchair (FIM): 6 Distance: 200' Wheel 50 feet with 2 turns (QC: 6 PT Plan Problem List Problem List: Activity Tolerance, Functional Strength, Safety, Balance, Transfer Treatment/Plan Treatment Plan: Continue Plan of Care Treatment Plan: Bed Mobility, Education, Functional Activity Carol, Functional Strength, Group Therapy, Gait, Safety, Therapeutic Exercise, Transfers Treatment Duration: May 27, 2016 Visits Per Week: 10-11 Minutes/Day (M-F): 60-90 Minutes/Day (Sat/Herman): 15-30 Time/GCodes Time In: 1400 Time Out: 1433 Total Billed Treatment Time: 33 Total Billed Treatment visit FA 33 STEPHANIE BALLESTEROS PT May 07, 2016 15:02
[2016-05-07 18:08] VITALS: BP 190/75
--- NOTE | 2016-05-07 19:54 | Individualized Plan of Care ---
Individualized Plan of Care Rehab Nursing IPOC Order Admission Date May 05, 2016 at 18:15 Current Orders Orders-NILDA DYER MD Miconazole 2% Powder (Desenex Af 2% Powd (05/06/16 10:00) Patient Visit (05/06/16 ) Speech Sound Lang Comp (05/06/16 ) Insulin Aspart (Novolog) (Novolog (Charg (05/06/16 16:00) Insulin Nph Human (Per Unit) (Novolin N (05/07/16 07:00) Pioglitazone Tablet (Actos Tablet) (05/07/16 07:00) Simvastatin Tablet (Zocor Tablet) (05/06/16 21:00) Insulin Aspart (Novolog) (Novolog (Charg (05/06/16 16:00) Insulin Aspart (Novolog) (Novolog (Charg (05/06/16 16:00) Atorvastatin Tablet (Lipitor Tablet) (05/06/16 21:00) Patient Visit (05/06/16 ) Pt Eval Moderate Complexity (05/06/16 ) Functional Activities, Ea 15 (05/06/16 ) Wheelchair Mgmt/Propulsn 15min (05/06/16 ) Patient Visit (05/06/16 ) Therapeutic, Group (05/06/16 ) Insulin Aspart (Novolog) (Novolog (Charg (05/06/16 21:00) Patient Visit (05/07/16 ) Wheelchair Mgmt/Propulsn 15min (05/07/16 ) Functional Activities, Ea 15 (05/07/16 ) Exercise Therap, Ea 15 Min (05/07/16 ) Patient Visit (05/07/16 ) Functional Activities, Ea 15 (05/07/16 ) PT IPOC Problem List: Activity Tolerance, Functional Strength, Safety, Balance, Transfer Treatment Plan: Continue Plan of Care Bed Mobility, Education, Functional Activity Carol, Functional Strength, Group Therapy, Gait, Safety, Therapeutic Exercise, Transfers Treatment Duration: May 27, 2016 Visits Per Week: 10-11 Minutes/Day (M-F): 60-90 Minutes/Day (Sat/Herman): 15-30 OT IPOC Problems: Decreased Activ Tolerance, Decreased UE Strength, Dependent Transfers , Impaired Bed Mobility, Impaired Funct Balance, Impaired Self-Care Skills OT Problems Pt would benefit from skilled OT to increase her independence in basic transfers and self care to allow her to safely return to her home to live independently and decrease caregiver burden Plan of Care: ADL Retraining, Functional Mobility, Group Exercise/Act as Ind ( education, exercise, activity tolerance, functional activities, socialization), UE Funct Exercise/Act, UE Neuromus Re-Ed/Coord, W/C Management Training Treatment Duration: May 27, 2016 Visits Per Week: 10-11 Minutes/Day (M-F): 75-90 Minutes/Day (Sat/Herman): 15-30 ST IP Speech Therapy Treatment Plan: Discontinue ST Physician IPOC Medical Issues being managed closely and that require the 24 hour availability of a physician:DM Postpolio syndrome with recent fall and resulting painful LLE which was not affected by polio Morbid obesity Chronic venousstasis Medical Issues: DVT Prophylaxis, Falls Precautions, Fluid/Electrolyte/ Nutrition Balance, Infection Protection, Pain Management, Other (List) (as per above) Brief Synthesis of Preadmission Screen, Post-Admission Evaluation, and Therapy Evaluations: 66 yo female who lives with her grandchildren who is disabled for Postpolio syndrome but had been Modified Independent for mobility with axillary crutches and scooter at home and has a w/c accessible Van with hand controls who fell and injured left uninvolved leg with resulting increased dpendency, Admitted to [facility] in [place] near her home in [place] for eval and treatment Xray leftLE no Frx Referred here for rehab Has chronic venousstasis and legs are wrapped Patient has IDDM and is morbidly obese. Medical Prognosis: good Anticipated Length of Stay: 05/27/16 Rehab Goals Return to PLOF or better Anticipated discharge destinat: Home with [facility] and family NILDA DYER MD May 07, 2016 19:54
[2016-05-07] MEDS: ATORVASTATIN 10 MG (LIPITOR) TABLET PO SCH (20:45)
[2016-05-08 06:00] VITALS: BP 188/71
[2016-05-08] MEDS: inSUlin ASPART (NovoLOG) 1 UNIT/0.01 ML (CHARGE PER UNIT) SC SCH ×4 (06:00→21:24)
[2016-05-08] MEDS: LEVOTHYROXINE 150 MCG (LEVOTHROID) TAB PO SCH (06:25)
[2016-05-08] MEDS: PIOGLITAZONE 30MG (ACTOS) TAB PO SCH (06:26)
[2016-05-08] MEDS: GLIMEPIRIDE 2 MG (AMARYL) TAB PO SCH (06:26)
[2016-05-08] MEDS: inSUlin ASPART (NovoLOG) 1 UNIT/0.01 ML (CHARGE PER UNIT) SQ SCH ×3 (06:27→16:00)
[2016-05-08] MEDS ORDERED: inSUlin NPH (NovoLIN N) 1 UNIT/0.01 ML (CHARGE PER UNIT) SQ SCH (07:00)
[2016-05-08 07:50] LABS: CALCIUM 7.7 MG/DL (8.5-10.1); CREATININE SERUM 1.6 MG/DL (0.60-1.30); POTASSIUM 4.3 MMOL/L (3.6-5.0)
--- NOTE | 2016-05-08 08:20 | PM & R (SOAP) Progress Note ---
Subjective Subjective/Events-last exam Patient was seen in her room this AM Patient max assist to director operating room //Bars with rt knee blocked Patient self propels w/c with Upper Extremities 50 feet Review of Systems Neurological: : Weakness Objective Exam Last Set of Vital Signs Vital Signs Date Time Temp Pulse Resp B/P Pulse Ox O2 Delivery O2 Flow Rate FiO2 05/08/16 06:00 96.6 83 18 188/71 96 Room Air Capillary Refill : I&O Intake and Output 05/08/16 00:00 Intake Total 1250 ml Balance 1250 ml Intake Oral 1250 ml # Voids 6 # Bowel Movements 2 General: Alert, Oriented X3, Cooperative, No Acute Distress HEENT: Atraumatic, PERRLA, EOMI, Mucous Memb Moist/Barre Neck: Supple Lungs: Clear to Auscultation Heart: Regular Rate Abdomen: Normal Bowel Sounds, Soft, No Tenderness Extremities: Other (chronic venousstasis with legs wrapped) Neuro: Other (Weaknees both lower extremities Rt >lleft with tenderness left post thigh) Results Lab Laboratory Tests 05/05/16 21:36: Glucometer 203H 05/06/16 05:18: Glucometer 148H 05/06/16 06:26: Alanine Aminotransferase (ALT/SGPT) 19, Albumin 2.9L, Alkaline Phosphatase 66, Anion Gap 10, Aspartate Amino Transf (AST/SGOT) 24, BUN/Creatinine Ratio 22, Basophils # (Auto) 0.0, Basophils (%) (Auto) 0, Blood Urea Nitrogen 39H, Calcium Level 7.5L, Carbon Dioxide Level 20L, Chloride Level 111H, Creatinine 1.80H, Eosinophils # (Auto) 0.3, Eosinophils (%) (Auto) 5, Estimat Glomerular Filtration Rate 28, Glucose Level 155H, Hematocrit 28L, Hemoglobin 8.7L, Lymphocytes # (Auto) 1.1, Lymphocytes (%) (Auto) 20, Mean Corpuscular Hemoglobin 27, Mean Corpuscular Hemoglobin Concent 31L, Mean Corpuscular Volume 88, Mean Platelet Volume 9.5, Monocytes # (Auto) 0.5, Monocytes (%) (Auto) 10, Neutrophils # (Auto) 3.3, Neutrophils (%) (Auto) 65, Platelet Count 260, Potassium Level 4.1, Red Blood Count 3.20L, Red Cell Distribution Width 13.3, Sodium Level 141, Total Bilirubin 0.5, Total Protein 6.0L, White Blood Count 5.2 05/06/16 10:44: Glucometer 189H 05/06/16 15:28: Glucometer 117H 05/06/16 20:46: Glucometer 81 05/07/16 05:40: Alanine Aminotransferase (ALT/SGPT) 21, Albumin 2.9L, Alkaline Phosphatase 69, Anion Gap 11, Aspartate Amino Transf (AST/SGOT) 30, BUN/Creatinine Ratio 22, Basophils # (Auto) 0.0, Basophils (%) (Auto) 0, Blood Urea Nitrogen 36H, Calcium Level 7.5L, Carbon Dioxide Level 20L, Chloride Level 112H, Creatinine 1.63H, Eosinophils # (Auto) 0.2, Eosinophils (%) (Auto) 4, Estimat Glomerular Filtration Rate 32, Glucose Level 66L, Hematocrit 27L, Hemoglobin 8.5L, Lymphocytes # (Auto) 1.1, Lymphocytes (%) (Auto) 23, Mean Corpuscular Hemoglobin 28, Mean Corpuscular Hemoglobin Concent 31L, Mean Corpuscular Volume 88, Mean Platelet Volume 9.2, Monocytes # (Auto) 0.5, Monocytes (%) (Auto) 9, Neutrophils # (Auto) 3.1, Neutrophils (%) (Auto) 63, Platelet Count 249, Potassium Level 4.0, Red Blood Count 3.09L, Red Cell Distribution Width 13.2, Sodium Level 143, Total Bilirubin 0.5, Total Protein 5.9L, White Blood Count 4.9 05/07/16 05:41: Glucometer 66L 05/07/16 11:39: Glucometer 57*L 05/07/16 12:48: Glucometer 82 05/07/16 15:53: Glucometer 117H 05/07/16 20:10: Glucometer 131H 05/08/16 05:51: Glucometer 113H 05/08/16 07:05: Anion Gap 12, BUN/Creatinine Ratio 20, Blood Urea Nitrogen 32H, Calcium Level 7.7L, Carbon Dioxide Level 20L, Chloride Level 112H, Creatinine 1.60H, Estimat Glomerular Filtration Rate 32, Glucose Level 131H, Potassium Level 4.3, Sodium Level 144 Assessment/Plan Assessment Post-polio syndrome Fall with left leg pain IDDM Morbid obesity Chronic venous stasis BLES wraps in place RN reports no skin breakdown seen during change of wraps Plan Continue PT/OT ST has signed off Blood pressure elevated-DR Dunaway has seen Team CONference held 05-06-16 See report for full functional update and POC and ELOS Adjust meds as needed Continue Misha wraps Patient reports that PCP is DR Hawkins in [facility] NILDA DYER MD May 08, 2016 08:20
--- NOTE | 2016-05-08 08:58 | Progress Note (SOAP) ---
Subjective Subjective/Events-last exam neuromuscular disorder. Patient feeling sore. Patient feeling better. Hypertension getting Toprol Objective Exam Vital Signs Date Time Temp Pulse Resp B/P Pulse Ox O2 Delivery O2 Flow Rate FiO2 05/08/16 06:00 96.6 83 18 188/71 96 Room Air 05/07/16 21:10 Room Air 05/07/16 18:08 96.1 71 16 190/75 98 05/07/16 09:00 Room Air I & O 05/08/16 07:00 Intake Total 1640 ml Balance 1640 ml Capillary Refill : General Appearance: No Apparent Distress WD/WN Results Lab Laboratory Tests 05/08/16 07:05 Laboratory Tests 05/07/16 11:39: Glucometer 57*L 05/07/16 12:48: Glucometer 82 05/07/16 15:53: Glucometer 117H 05/07/16 20:10: Glucometer 131H 05/08/16 05:51: Glucometer 113H 05/08/16 07:05: Anion Gap 12, BUN/Creatinine Ratio 20, Blood Urea Nitrogen 32H, Calcium Level 7.7L, Carbon Dioxide Level 20L, Chloride Level 112H, Creatinine 1.60H, Estimat Glomerular Filtration Rate 32, Glucose Level 131H, Potassium Level 4.3, Sodium Level 144 Assessment/Plan Assessment/Plan Assess & Plan/Chief Complaint pain in the left thigh causing difficulty in getting around better Postpolio syndrome. Ambulatory dysfunction. Diabetes. Hypothyroid. Hypertension. Chronic renal insufficiency area. . 05/08/16. Post polio syndrome. Ambulatory dysfunction. Diabetes. Hypothyroid. Hypertension put on Toprol. Chronic renal sufficiency Diagnosis/Problems: Clinical Quality Measures DVT/VTE Risk/Contraindication: Risk Factor Score Per Nursin RFS Level Per Nursing on Admit: 4+=Very High ERASTO TRAMMELL DO May 08, 2016 08:58
--- NOTE | 2016-05-08 08:59 | Physical Therapy Daily Note ---
PT Daily Note-Current Subjective Patient in bed pre tx, agrees to PT. Patient has no pain at rest but 7/10 in left leg with weight bearing. Appearance Patient in wheelchair at bedside post tx, has nurse call, phone, tray, all needs met. Has OT right after PT. Mental Status Patient Orientation: Normal For Age Transfers Functional [place] Measure 0=Not Assessed/NA 4=Minimal Assistance 1=Total Assistance 5=Supervision or Setup 2=Maximal Assistance 6=Modified [place] 3=Moderate Assistance 7=Complete IndependenceIRFPAI Quality Coding Scale 6 Independent with activity with or without an assistive device 5 Patient requires set up or clean up by helper. Patient completes activity by themselves 4 Supervision or touching assist (CGA). [place] provide cues , steadying assist 3 The helper provides less than half the effort to complete the activity 2 The helper provides more than half the effort to complete the activity 1 Dependent. The helper does all the effort to complete an activity 7 Patient refused to complete or attempt activity 9 The patient did not perform the activity before the current illness or injury 88 Not attempted due to Medical conditions or safety concerns Transfers (B, C, W/C) (FIM): 1 Scootin Rollin Supine to/from Sit: 3 Sit to/from Stand: 1 Bed to/from Chair: 1 Patient uses a sit to stand machine for bed to chair transfers. Wheelchair Training Does the Pt Use a Wheelchair?: Yes Wheelchair (FIM): 2 Distance: 50'x2 Wheelchair Level of Assist: 5 Type of Wheelchair: Manual Exercises LAQ left side for 5 min, attempted sit to stand at the edge of the therapy mat while it was elevated to make sit to stand easier for the patient but she could not completely stand even with max assist from therapist (attempted x3), stood in the parallel bars x3 with max assist, also scooted forward in chair leaned forward and rocked forward and back putting weight through left leg over and over for 5 min Treatments bed mobility and transfers, functional strengthening Assessment Current Status: Poor Progress poor progress with mobility, she is not even close to standing using crutches like she did before her fall PT Short Term Goals Short Term Goals Time Frame: May 13, 2016 Wheelchair Distance: 150'x2 PT Chcf Goals Chcf Goals PT Cigar Making Machine Supervisor Goals Time Frame: May 27, 2016 Transfers (B,C,W/C) (FIM): 3 Sit to Lying (QC): 4 Lying-Sitting on Side/Bed(QC): 4 Sit to Stand (QC): 2 Rollin Roll Left to Right (QC): 4 Chair/[place] Xfer(QC): 2 Car Transfer (QC): 88 Wheelchair (FIM): 6 Distance: 200' Wheel 50 feet with 2 turns (QC: 6 PT Plan Problem List Problem List: Activity Tolerance, Functional Strength, Safety, Balance, Gait, Transfer, Bed Mobility, ROM Treatment/Plan Treatment Plan: Continue Plan of Care Treatment Plan: Bed Mobility, Education, Functional Activity [place], Functional Strength, Group Therapy, Gait, Safety, Therapeutic Exercise, Transfers Treatment Duration: May 27, 2016 Visits Per Week: 10-11 Minutes/Day (M-F): 60-90 Minutes/Day (Sat/Herman): 15-30 Safety Risks/Education Patient Education: Transfer Techniques, Correct Positioning, W/C Management, Safety Issues Teaching Recipient: Patient Teaching Methods: Demonstration, Discussion Response to Teaching: Reinforcement Needed Time/GCodes Time In: 800 Time Out: 900 Total Billed Treatment Time: 60 Total Billed Treatment 1 visit [facility] 15 min EX 15 min FA 30 min LENORE EGAN PT May 08, 2016 08:59
[2016-05-08] MEDS: VERAPAMIL SR 240 MG (CALAN SR) TAB PO SCH (09:51)
[2016-05-08] MEDS: MICONAZOLE 2% POWDER (DESENEX AF) 90 GM TOP SCH ×2 (09:51→21:20)
--- NOTE | 2016-05-08 11:34 | Occupational Ther Daily Note ---
OT Current Status-Daily Note Subjective Pt seen in room, up in w/c, agreeable to OT.No pain mentioned except tenderness on bottom of R foot when moved. Appearance Alert, cooperative Mental Status/Objective Patient Orientation: Person, Place, Time, Situation Functional [place] Measure 0=Not Assessed/NA 4=Minimal Assistance 1=Total Assistance 5=Supervision or Setup 2=Maximal Assistance 6=Modified [place] 3=Moderate Assistance 7=Complete [place] ADL-Treatment Functional [place] Measure 0=Not Assessed/NA 4=Minimal Assistance 1=Total Assistance 5=Supervision or Setup 2=Maximal Assistance 6=Modified [place] 3=Moderate Assistance 7=Complete IndependenceIRFPAI Quality Coding Scale 6 Independent with activity with or without an assistive device 5 Patient requires set up or clean up by helper. Patient completes activity by themselves 4 Supervision or touching assist (CGA). [place] provide cues , steadying assist 3 The helper provides less than half the effort to complete the activity 2 The helper provides more than half the effort to complete the activity 1 Dependent. The helper does all the effort to complete an activity 7 Patient refused to complete or attempt activity 9 The patient did not perform the activity before the current illness or injury 88 Not attempted due to Medical conditions or safety concerns Grooming (FIM): 6 (Pt was able to brush teeth and comb hair, just needing help to get chair in and out of bathroom. No makeup. washed face and hands during shower) Bathing (FIM): 5 (Pt was able to wash and dry all parts except her back, using wheeled shower chair, grab bars, hand held shower, and long handled sponge. Setup.) Upper Body (FIM): 5 (Pt was able to doff and don clothing, including bra, with setup, dressing in w/c) Lower Body Dressing (FIM): 3 (Pt was able to doff and don skirt while sitting but not able to get slipper socks off or on. Also had sherwin wrap and bandage on R ankle which makes it harder to get sock on/off with devices. ) Transfers (B, C, W/C) (FIM): 1 (transferred from w/c to shower chair and to bed with sits to stand lift. Needs mod help to swing both legs into bed and postion R leg. Pt becoming good advocate for directing her care with transfers with sit to stand lift) Shower Transfer(FIM): 1 (Transferred using sit to stand lift to wheeled shower chair, then transported to shower room. Help needed to lock brakes of shower chair) At end of tx, pt returned to bed. left up in bed, 4 rails up, all needs met. Other Treatment Pt education theraband UE exercises with red (medium resistance) theraband. Dod 10 reps 4 different exercises that work specific musculature for pushing up for transfers and pulling up with grab bars. Education OT Patient Education: Modified ADL techniques, Transfer techniques, Use of adapted equipment Teaching Recipient: Patient Teaching Methods: Demonstration, Discussion Response to Teaching: Return Demonstration OT Short Term Goals Short Term Goals Time Frame: May 13, 2016 Lower Body Dressing(FIM): 4 Toileting(FIM): 3 Toilet/Commode Transfer(FIM): 2 Additional Short Term Goals: 2-Verbalize Understanding, 3-ImproveStrength/Carol 1=Demonstrate adherence to instructed precautions during ADL tasks. 2=Patient will verbalize/demonstrate understanding of assistive devices/ modifications for ADL. 3=Patient will improve strength/tolerance for activity to enable patient to perform ADL's. OT Lining Folder Goals Jail Goals Time Frame: May 27, 2016 1=Demonstrate adherence to instructed precautions during ADL tasks. 2=Patient will verbalize/demonstrate understanding of assistive devices/ modifications for ADL. 3=Patient will improve strength/tolerance for activity to enable patient to perform ADL's. OT Education/Plan Problem List/Assessment Pt would benefit from skilled OT to increase her independence in basic transfers and self care to allow her to safely return to her home to live independently and decrease caregiver burden Discharge Recommendations Plan/Recommendations: Continue POC Treatment Plan/Plan of Care Patient would benefit from OT for education, treatment and training to promote independence in ADL's, mobility, safety and/or upper extremity function for ADL' s. Plan of Care: ADL Retraining, Functional Mobility, Group Exercise/Act as Ind ( education, exercise, activity tolerance, functional activities, socialization), UE Funct Exercise/Act, UE Neuromus Re-Ed/Coord, W/C Management Training Treatment Duration: May 27, 2016 Visits Per Week: 10-11 Minutes/Day (M-F): 75-90 Minutes/Day (Sat/Herman): 15-30 Agreement: Yes Rehab Potential: Good Time/GCodes Start Time: 09:00 Stop Time: 10:00 Total Time Billed (hr/min): 60 Billed Treatment Time visit, 55 minutes ADL, 5 minutes exercise RADHA LIN OT May 08, 2016 11:34
--- NOTE | 2016-05-08 13:29 | Physical Therapy Daily Note ---
PT Daily Note-Current Subjective Patient in wheelchair at bedside pre tx, agrees to PT. She has been having trouble with her blood sugar so will just perform sitting exercises. Patient states she has pain of 2-3/10 in her left leg. Appearance Patient in wheelchair at bedside post tx, has nurse call, phone, tray, all needs met, has OT right after PT. Mental Status Patient Orientation: Normal For Age Transfers Functional [place] Measure 0=Not Assessed/NA 4=Minimal Assistance 1=Total Assistance 5=Supervision or Setup 2=Maximal Assistance 6=Modified [place] 3=Moderate Assistance 7=Complete IndependenceIRFPAI Quality Coding Scale 6 Independent with activity with or without an assistive device 5 Patient requires set up or clean up by helper. Patient completes activity by themselves 4 Supervision or touching assist (CGA). [place] provide cues , steadying assist 3 The helper provides less than half the effort to complete the activity 2 The helper provides more than half the effort to complete the activity 1 Dependent. The helper does all the effort to complete an activity 7 Patient refused to complete or attempt activity 9 The patient did not perform the activity before the current illness or injury 88 Not attempted due to Medical conditions or safety concerns Exercises Seated Therapy Exercises: Ankle pumps, Long arc quads, Hip flexion, Hamstring Curls, Hip abd/add, Glut set Seated Reps: 20 bilateral ankle PROM Treatments functional strengthening and ROM Assessment Current Status: Poor Progress no change in mobility PT Short Term Goals Short Term Goals Time Frame: May 13, 2016 Wheelchair Distance: 50'x2 PT Field Care Manager Goals Field Care Manager Goals PT Field Care Manager Goals Time Frame: May 27, 2016 Transfers (B,C,W/C) (FIM): 3 Sit to Lying (QC): 4 Lying-Sitting on Side/Bed(QC): 4 Sit to Stand (QC): 2 Rollin Roll Left to Right (QC): 4 Chair/Otu-nn-Ullxy Xfer(QC): 2 Car Transfer (QC): 88 Wheelchair (FIM): 6 Distance: 200' Wheel 50 feet with 2 turns (QC: 6 PT Plan Problem List Problem List: Activity Tolerance, Functional Strength, Safety, Balance, Gait, Transfer, Bed Mobility, ROM Treatment/Plan Treatment Plan: Continue Plan of Care Treatment Plan: Bed Mobility, Education, Functional Activity Carol, Functional Strength, Group Therapy, Gait, Safety, Therapeutic Exercise, Transfers Treatment Duration: May 27, 2016 Visits Per Week: 10-11 Minutes/Day (M-F): 60-90 Minutes/Day (Sat/Herman): 15-30 Safety Risks/Education Patient Education: Disease Process, Safety Issues Teaching Recipient: Patient Teaching Methods: Demonstration, Discussion Response to Teaching: Reinforcement Needed Time/GCodes Time In: 1300 Time Out: 1330 Total Billed Treatment Time: 30 Total Billed Treatment 1 visit EX 30 min LENORE EGAN PT May 08, 2016 13:29
--- NOTE | 2016-05-08 14:26 | Occupational Ther Daily Note ---
OT Current Status-Daily Note Subjective Pt seen in room, up in w/c, agreeable to OT. No pain mentioned. Appearance Alert, cooperative Mental Status/Objective Functional [place] Measure 0=Not Assessed/NA 4=Minimal Assistance 1=Total Assistance 5=Supervision or Setup 2=Maximal Assistance 6=Modified [place] 3=Moderate Assistance 7=Complete [place] ADL-Treatment Functional [place] Measure 0=Not Assessed/NA 4=Minimal Assistance 1=Total Assistance 5=Supervision or Setup 2=Maximal Assistance 6=Modified [place] 3=Moderate Assistance 7=Complete IndependenceIRFPAI Quality Coding Scale 6 Independent with activity with or without an assistive device 5 Patient requires set up or clean up by helper. Patient completes activity by themselves 4 Supervision or touching assist (CGA). [place] provide cues , steadying assist 3 The helper provides less than half the effort to complete the activity 2 The helper provides more than half the effort to complete the activity 1 Dependent. The helper does all the effort to complete an activity 7 Patient refused to complete or attempt activity 9 The patient did not perform the activity before the current illness or injury 88 Not attempted due to Medical conditions or safety concerns Other Treatment Pt transported to therapy gym per w/c. Pt positioned at table and did 8 min bilat UE exercise with arm bike, set at 15W resistance. Pt was planning on doing 14 minutes (increase of 2 from yesterday) but she needed to go to the bathroom. Pt returned to room and transferred to [facility] with sit to stand lift. She has difficulty putting R foot on lift due to polio weakness but is proactive in helping to fasten lift straps. Sit to stand lift helps her weight bear on her LEs while coming to stand and maintaining standing while the lift is being repositioned. She was unable to manage hygiene and clothing during toileting. Pt stood again in lift and transferred to bed. Needed mod assist to get legs into bed. She continued with her exercises, doing 15 repetitions of bilat UE exercise with red therabsnd, recalling portions of exercises from this am but needing skilled intervention to continue them correctly. Exercises are to strengthen her arms to help with transfers. Pt was left up in bed, 4 rails up , all needs met. Education OT Patient Education: Exercise program, Purpose of tx/functional activities OT Short Term Goals Short Term Goals Time Frame: May 13, 2016 Lower Body Dressing(FIM): 4 Toileting(FIM): 3 Toilet/Commode Transfer(FIM): 2 Additional Short Term Goals: 2-Verbalize Understanding, 3-ImproveStrength/Carol 1=Demonstrate adherence to instructed precautions during ADL tasks. 2=Patient will verbalize/demonstrate understanding of assistive devices/ modifications for ADL. 3=Patient will improve strength/tolerance for activity to enable patient to perform ADL's. OT Retirement Goals Membership Sales Manager Goals Time Frame: May 27, 2016 1=Demonstrate adherence to instructed precautions during ADL tasks. 2=Patient will verbalize/demonstrate understanding of assistive devices/ modifications for ADL. 3=Patient will improve strength/tolerance for activity to enable patient to perform ADL's. OT Education/Plan Problem List/Assessment Pt would benefit from skilled OT to increase her independence in basic transfers and self care to allow her to safely return to her home to live independently and decrease caregiver burden Discharge Recommendations Plan/Recommendations: Continue POC Treatment Plan/Plan of Care Patient would benefit from OT for education, treatment and training to promote independence in ADL's, mobility, safety and/or upper extremity function for ADL' s. Plan of Care: ADL Retraining, Functional Mobility, Group Exercise/Act as Ind ( education, exercise, activity tolerance, functional activities, socialization), UE Funct Exercise/Act, UE Neuromus Re-Ed/Coord, W/C Management Training Treatment Duration: May 27, 2016 Visits Per Week: 10-11 Minutes/Day (M-F): 75-90 Minutes/Day (Sat/Herman): 15-30 Agreement: Yes Rehab Potential: Good Time/GCodes Start Time: 13:30 Stop Time: 14:00 Total Time Billed (hr/min): 30 Billed Treatment Time visit, 23 minutes exercise, 7 minutes ADL RADHA LIN OT May 08, 2016 14:26
[2016-05-08 18:45] VITALS: BP 200/74
[2016-05-08 19:55] VITALS: BP 176/74
[2016-05-08] MEDS: ATORVASTATIN 10 MG (LIPITOR) TABLET PO SCH (21:20)
[2016-05-09 05:16] VITALS: BP 170/74
[2016-05-09] MEDS: inSUlin ASPART (NovoLOG) 1 UNIT/0.01 ML (CHARGE PER UNIT) SC SCH ×4 (06:00→20:40)
[2016-05-09 06:26] LABS: CALCIUM 7.8 MG/DL (8.5-10.1); CREATININE SERUM 1.71 MG/DL (0.60-1.30); POTASSIUM 4.6 MMOL/L (3.6-5.0)
[2016-05-09] MEDS: GLIMEPIRIDE 2 MG (AMARYL) TAB PO SCH (06:42)
[2016-05-09] MEDS: LEVOTHYROXINE 150 MCG (LEVOTHROID) TAB PO SCH (06:42)
[2016-05-09] MEDS: PIOGLITAZONE 30MG (ACTOS) TAB PO SCH (06:43)
[2016-05-09] MEDS: inSUlin ASPART (NovoLOG) 1 UNIT/0.01 ML (CHARGE PER UNIT) SQ SCH ×3 (06:44→17:58)
[2016-05-09] MEDS: inSUlin NPH (NovoLIN N) 1 UNIT/0.01 ML (CHARGE PER UNIT) SQ SCH (06:49)
--- NOTE | 2016-05-09 08:37 | Occupational Ther Daily Note ---
OT Current Status-Daily Note Subjective Pt alert, sitting up in w/c. Pt agreed to therapy. No c/o pain at this time. Pt states, she is ready to work so she can get home to her grandkids. Mental Status/Objective Patient Orientation: Person, Place, Time, Situation Functional [place] Measure 0=Not Assessed/NA 4=Minimal Assistance 1=Total Assistance 5=Supervision or Setup 2=Maximal Assistance 6=Modified [place] 3=Moderate Assistance 7=Complete [place] ADL-Treatment Pt completed upper body sponge bath to freshen up today. Pt was already dressed and ready to go when OT entered room. Pt and OT discussed pt's kitchen set up in [facility] kitchen. Pt stated that she has a U-shaped kitchen and has organized her kitchen so that she is able to reach everyday items easily from w/ c. Pt stated safety considerations for kitchen that is appropriate. Pt was able to describe how to transfer with sit to stand transfer lift. Pt unable to complete own toileting at this time. After therapy, pt sitting up in w/c with call light/phone in reach. All needs met in room. Functional [place] Measure 0=Not Assessed/NA 4=Minimal Assistance 1=Total Assistance 5=Supervision or Setup 2=Maximal Assistance 6=Modified [place] 3=Moderate Assistance 7=Complete IndependenceIRFPAI Quality Coding Scale 6 Independent with activity with or without an assistive device 5 Patient requires set up or clean up by helper. Patient completes activity by themselves 4 Supervision or touching assist (CGA). [place] provide cues , steadying assist 3 The helper provides less than half the effort to complete the activity 2 The helper provides more than half the effort to complete the activity 1 Dependent. The helper does all the effort to complete an activity 7 Patient refused to complete or attempt activity 9 The patient did not perform the activity before the current illness or injury 88 Not attempted due to Medical conditions or safety concerns Grooming (FIM): 6 (Sitting at sink, pt is able to complete all grooming skills. ) Oral Hygiene (QC): 6 (Sitting at sink, pt is able to complete all grooming skills.) Toileting (FIM): 1 Transfers (B, C, W/C) (FIM): 1 (with sit to stand lift) Toilet/Commode Transfer (FIM): 1 (with sit to stand lift and BSC) Other Treatment Pt maneuvered w/c to therapy gym by self. Arm bike completed 15 min at 15 lynn resistance without breaks to increase strength and activity tolerance for daily functional tasks. Fine motor strengthening and coordination tasks completed without difficulty for daily functional tasks. UE exercises with 1# wt attached to wrists completed at floor level then at hip height to work on AROM and strength of B UE's. Pt tolerated all exercises well. OT Short Term Goals Short Term Goals Time Frame: May 13, 2016 Lower Body Dressing(FIM): 4 Toileting(FIM): 3 Toilet/Commode Transfer(FIM): 2 Additional Short Term Goals: 2-Verbalize Understanding, 3-ImproveStrength/Carol 1=Demonstrate adherence to instructed precautions during ADL tasks. 2=Patient will verbalize/demonstrate understanding of assistive devices/ modifications for ADL. 3=Patient will improve strength/tolerance for activity to enable patient to perform ADL's. OT Comprehensive Ophthalmologist Goals [facility] Goals Time Frame: May 27, 2016 1=Demonstrate adherence to instructed precautions during ADL tasks. 2=Patient will verbalize/demonstrate understanding of assistive devices/ modifications for ADL. 3=Patient will improve strength/tolerance for activity to enable patient to perform ADL's. OT Education/Plan Problem List/Assessment Pt would benefit from skilled OT to increase her independence in basic transfers and self care to allow her to safely return to her home to live independently and decrease caregiver burden Discharge Recommendations Plan/Recommendations: Continue POC Treatment Plan/Plan of Care Patient would benefit from OT for education, treatment and training to promote independence in ADL's, mobility, safety and/or upper extremity function for ADL' s. Plan of Care: ADL Retraining, Functional Mobility, Group Exercise/Act as Ind ( education, exercise, activity tolerance, functional activities, socialization), UE Funct Exercise/Act, UE Neuromus Re-Ed/Coord, W/C Management Training Treatment Duration: May 27, 2016 Visits Per Week: 10-11 Minutes/Day (M-F): 75-90 Minutes/Day (Sat/Herman): 15-30 Agreement: Yes Rehab Potential: Good Time/GCodes Start Time: 07:00 Stop Time: 08:30 Total Time Billed (hr/min): 90 Billed Treatment Time 1 visit-FA 3 (45 min) EX 3 (45 min) STEPHANIE WILLOUGHBY May 09, 2016 08:37
[2016-05-09] MEDS: VERAPAMIL SR 240 MG (CALAN SR) TAB PO SCH (08:52)
[2016-05-09] MEDS: MICONAZOLE 2% POWDER (DESENEX AF) 90 GM TOP SCH ×2 (08:53→20:43)
--- NOTE | 2016-05-09 10:34 | Physical Therapy Daily Note ---
PT Daily Note-Current Subjective Pt reports her primary limitation is (L) posterior thigh pain, 8/10 with standing. She says it feels like a "pulling,tearing" sensation when she stands. Mental Status Patient Orientation: Normal For Age Transfers Functional [place] Measure 0=Not Assessed/NA 4=Minimal Assistance 1=Total Assistance 5=Supervision or Setup 2=Maximal Assistance 6=Modified [place] 3=Moderate Assistance 7=Complete IndependenceIRFPAI Quality Coding Scale 6 Independent with activity with or without an assistive device 5 Patient requires set up or clean up by helper. Patient completes activity by themselves 4 Supervision or touching assist (CGA). [place] provide cues , steadying assist 3 The helper provides less than half the effort to complete the activity 2 The helper provides more than half the effort to complete the activity 1 Dependent. The helper does all the effort to complete an activity 7 Patient refused to complete or attempt activity 9 The patient did not perform the activity before the current illness or injury 88 Not attempted due to Medical conditions or safety concerns Transfers (B, C, W/C) (FIM): 1 (dependent with LIKO lift) Sit to/from Stand: 2 (in parallel bars ) Wheelchair Training Does the Pt Use a Wheelchair?: Yes Wheelchair Distance: 0=623-22 ft Distance: 125 Type of Wheelchair: Manual performed w/c mobility including 180 degree turns with verbal cues for encouragement. Pt went 2 rounds of 125ft with short rest at 50ft. Exercises Seated Therapy Exercises: Ankle pumps, Sit to stand, Long arc quads, Chair press-ups, Kicking activity, Hip abd/add, Glut set Seated Reps: 20 Standing Reps: 8 All exercises active assist with passive stretch at end range. Performed seated long leg traction on the (L) leg 5 bouts of 30 seconds. Positioned with (L) leg propped on red theraball and sheet around ankle for pull. Worked hamstring contraction in this position as well 2 x 10, (L) LE nerve glides 3 x 20. Sit to roadability machine operator parallel bars x 8 trials with Moderate assist. Pt able to hold 15-30 seconds per trial. Limitation is (L) posterior leg pain. Attempted sit to stand with assist of anna lift sling. Pt was able to assume 75% upright position but was not able to tolerate the squeezing pressure of the harness around her chest. Assessment Pt showing improved ability to come to standing in bars but remains limited by ( L) leg pain. The pain prevents her from standing sufficient length of time to perform functional transfers. Progressed treatment to include nerve glides in the (L) LE. No noted change in posterior leg pain following nerve glides and stretching. Pt was educated on the benefits of lying supine to reduce strain on the lower back. She indicates that she will try increase supine time but it is difficult due to breathing. She will benefit from continued therapy to promote functional movement. PT Short Term Goals Short Term Goals Time Frame: May 13, 2016 Wheelchair Distance: 50'x2 PT Energy Engineer Goals Energy Engineer Goals PT Energy Engineer Goals Time Frame: May 27, 2016 Transfers (B,C,W/C) (FIM): 3 Sit to Lying (QC): 4 Lying-Sitting on Side/Bed(QC): 4 Sit to Stand (QC): 2 Rollin Roll Left to Right (QC): 4 Chair/Mxe-fm-Ufwjp Xfer(QC): 2 Car Transfer (QC): 88 Wheelchair (FIM): 6 Distance: 200' Wheel 50 feet with 2 turns (QC: 6 PT Plan Problem List Problem List: Functional Strength, Balance, Transfer, Bed Mobility Treatment/Plan Treatment Plan: Continue Plan of Care Treatment Plan: Bed Mobility, Education, Functional Activity Carol, Functional Strength, Group Therapy, Gait, Safety, Therapeutic Exercise, Transfers Treatment Duration: May 27, 2016 Visits Per Week: 10-11 Minutes/Day (M-F): 60-90 Minutes/Day (Sat/Herman): 15-30 Time/GCodes Time In: 0900 Time Out: 1030 Total Billed Treatment Time: 90 Total Billed Treatment visit, FA 45 min, ex 45 min NICK HERNANDEZ PT May 09, 2016 10:34
[2016-05-09 18:00] VITALS: BP 170/75
[2016-05-09] MEDS: ATORVASTATIN 10 MG (LIPITOR) TABLET PO SCH (20:45)
[2016-05-10 04:43] VITALS: BP 174/76
[2016-05-10] MEDS: inSUlin ASPART (NovoLOG) 1 UNIT/0.01 ML (CHARGE PER UNIT) SC SCH ×4 (05:51→20:48)
[2016-05-10] MEDS: inSUlin ASPART (NovoLOG) 1 UNIT/0.01 ML (CHARGE PER UNIT) SQ SCH ×3 (05:52→16:49)
[2016-05-10] MEDS: GLIMEPIRIDE 2 MG (AMARYL) TAB PO SCH (06:45)
[2016-05-10] MEDS: LEVOTHYROXINE 150 MCG (LEVOTHROID) TAB PO SCH (06:45)
[2016-05-10] MEDS: PIOGLITAZONE 30MG (ACTOS) TAB PO SCH (06:45)
[2016-05-10] MEDS: inSUlin NPH (NovoLIN N) 1 UNIT/0.01 ML (CHARGE PER UNIT) SQ SCH (06:47)
[2016-05-10] MEDS: VERAPAMIL SR 240 MG (CALAN SR) TAB PO SCH (08:36)
[2016-05-10] MEDS: MICONAZOLE 2% POWDER (DESENEX AF) 90 GM TOP SCH ×2 (08:36→20:48)
[2016-05-10] MEDS: HYDROcodone/APAP 5 MG/325 MG (LORTAB) TAB PO PRN (08:37)
[2016-05-10 17:32] VITALS: BP 176/78
[2016-05-10] MEDS: ATORVASTATIN 10 MG (LIPITOR) TABLET PO SCH (20:48)
[2016-05-11 03:51] VITALS: BP 173/69
[2016-05-11] MEDS: inSUlin ASPART (NovoLOG) 1 UNIT/0.01 ML (CHARGE PER UNIT) SC SCH ×4 (06:00→21:00)
[2016-05-11] MEDS: LEVOTHYROXINE 150 MCG (LEVOTHROID) TAB PO SCH (06:11)
[2016-05-11] MEDS: GLIMEPIRIDE 2 MG (AMARYL) TAB PO SCH (06:11)
[2016-05-11] MEDS: PIOGLITAZONE 30MG (ACTOS) TAB PO SCH (06:11)
[2016-05-11] MEDS: inSUlin ASPART (NovoLOG) 1 UNIT/0.01 ML (CHARGE PER UNIT) SQ SCH ×3 (06:46→18:39)
[2016-05-11] MEDS: inSUlin NPH (NovoLIN N) 1 UNIT/0.01 ML (CHARGE PER UNIT) SQ SCH (06:47)
[2016-05-11] MEDS: VERAPAMIL SR 240 MG (CALAN SR) TAB PO SCH (07:59)
[2016-05-11] MEDS: HYDROcodone/APAP 5 MG/325 MG (LORTAB) TAB PO PRN ×2 (07:59→17:49)
[2016-05-11] MEDS: MICONAZOLE 2% POWDER (DESENEX AF) 90 GM TOP SCH ×2 (08:00→20:24)
--- NOTE | 2016-05-11 08:23 | Progress Note (SOAP) ---
Subjective Subjective/Events-last exam patient has weeping of the right leg area Patient was on Septra for this. To do CandS. patient still has problems standing up area Patient a work in progress Objective Exam Vital Signs Date Time Temp Pulse Resp B/P Pulse Ox O2 Delivery O2 Flow Rate FiO2 05/11/16 03:51 96.9 71 20 173/69 97 Room Air 05/10/16 20:00 Room Air 05/10/16 17:32 97.2 73 16 176/78 98 Room Air 05/10/16 09:00 Room Air I & O 05/11/16 07:00 Intake Total 1460 ml Balance 1460 ml Capillary Refill : General Appearance: No Apparent Distress WD/WN Results Lab Laboratory Tests 05/10/16 11:48: Glucometer 140H 05/10/16 16:21: Glucometer 125H 05/10/16 20:47: Glucometer 116H 05/11/16 05:03: Glucometer 112H Assessment/Plan Assessment/Plan Assess & Plan/Chief Complaint pain in the left thigh causing difficulty in getting around better Postpolio syndrome. Ambulatory dysfunction. Diabetes. Hypothyroid. Hypertension. Chronic renal insufficiency area. . 05/08/16. Post polio syndrome. Ambulatory dysfunction. Diabetes. Hypothyroid. Hypertension put on Toprol. Chronic renal sufficiency. . 05/11/16. Postpolio syndrome. Ambulatory dysfunction. Diabetes. Hypothyroid. Hypertension. Diagnosis/Problems: Clinical Quality Measures DVT/VTE Risk/Contraindication: Risk Factor Score Per Nursin RFS Level Per Nursing on Admit: 4+=Very High ERASTO TRAMMELL DO May 11, 2016 08:23
--- NOTE | 2016-05-11 08:59 | Occupational Ther Daily Note ---
OT Current Status-Daily Note Subjective Pt alert, lying in bed. Pt stated that she had been up since 3 am and had just went back to bed 30 min prior to OT coming in. Pt agreed to therapy. No c/o pain at this time. Mental Status/Objective Patient Orientation: Person, Place, Time, Situation Functional [place] Measure 0=Not Assessed/NA 4=Minimal Assistance 1=Total Assistance 5=Supervision or Setup 2=Maximal Assistance 6=Modified [place] 3=Moderate Assistance 7=Complete [place] ADL-Treatment Functional [place] Measure 0=Not Assessed/NA 4=Minimal Assistance 1=Total Assistance 5=Supervision or Setup 2=Maximal Assistance 6=Modified [place] 3=Moderate Assistance 7=Complete IndependenceIRFPAI Quality Coding Scale 6 Independent with activity with or without an assistive device 5 Patient requires set up or clean up by helper. Patient completes activity by themselves 4 Supervision or touching assist (CGA). [place] provide cues , steadying assist 3 The helper provides less than half the effort to complete the activity 2 The helper provides more than half the effort to complete the activity 1 Dependent. The helper does all the effort to complete an activity 7 Patient refused to complete or attempt activity 9 The patient did not perform the activity before the current illness or injury 88 Not attempted due to Medical conditions or safety concerns Eating (FIM): 7 (Pt is able to set own self up to eat and use regular utensils to feed self.) Grooming (FIM): 6 (Sitting in w/c, pt is able to complete own grooming.) Bathing (FIM): 6 (Using wheeled shower chair, long handle sponge and hand held shower pt was able to bathe herself. Pt sitting to bathe samantha area and buttocks.) Upper Body (FIM): 5 (After set up, pt completes own upper body dressing.) Pt uses sit to stand lift to transfer. Pt is able to weight bear on L LE and R LE has decreased movement and muscle tone. Pt will bear wt during lift transfer on L LE and attempt to place wt on R LE. Pt transferred to shower chair and went to large shower room to take shower. Pt able wash all areas though not as effective with samantha area and buttocks. Pt is able to doff clothing over head then dons shirt and skirt on over head. At home, pt will place legs up on higher surface to cleanse and to don/doff footwear. Pt uses long handle sponge to cleanse lower legs. Unable to complete donning/doffing socks at this time. Transferred pt back to bed then wrapped lower legs with gauze then two Misha wraps per leg. Pt is weeping on R lower leg, physician notified. Pt's abdomen skin has shiny reddish appearance. After therapy, pt lying in bed with call light/phone in reach. All needs met in room. OT Short Term Goals Short Term Goals Time Frame: May 13, 2016 Lower Body Dressing(FIM): 4 Toileting(FIM): 3 Toilet/Commode Transfer(FIM): 2 Additional Short Term Goals: 2-Verbalize Understanding, 3-ImproveStrength/Carol 1=Demonstrate adherence to instructed precautions during ADL tasks. 2=Patient will verbalize/demonstrate understanding of assistive devices/ modifications for ADL. 3=Patient will improve strength/tolerance for activity to enable patient to perform ADL's. OT Admissions Manager Goals Long-Term Goals Time Frame: May 27, 2016 1=Demonstrate adherence to instructed precautions during ADL tasks. 2=Patient will verbalize/demonstrate understanding of assistive devices/ modifications for ADL. 3=Patient will improve strength/tolerance for activity to enable patient to perform ADL's. OT Education/Plan Problem List/Assessment Pt would benefit from skilled OT to increase her independence in basic transfers and self care to allow her to safely return to her home to live independently and decrease caregiver burden Discharge Recommendations Plan/Recommendations: Continue POC Treatment Plan/Plan of Care Patient would benefit from OT for education, treatment and training to promote independence in ADL's, mobility, safety and/or upper extremity function for ADL' s. Plan of Care: ADL Retraining, Functional Mobility, Group Exercise/Act as Ind ( education, exercise, activity tolerance, functional activities, socialization), UE Funct Exercise/Act, UE Neuromus Re-Ed/Coord, W/C Management Training Treatment Duration: May 27, 2016 Visits Per Week: 10-11 Minutes/Day (M-F): 75-90 Minutes/Day (Sat/Herman): 15-30 Agreement: Yes Rehab Potential: Good Time/GCodes Start Time: 07:15 Stop Time: 08:45 Total Time Billed (hr/min): 90 Billed Treatment Time 1 visit-ADL 6 (90 min) STEPHANIE WILLOUGHBY May 11, 2016 08:59
--- NOTE | 2016-05-11 10:56 | Physical Therapy Daily Note ---
PT Daily Note-Current Subjective Patient in wheelchair pre tx, agrees to PT, has no pain at rest but significant pain in left leg with weight bearing. Appearance Patient in wheelchair at bedside post tx, has nurse call, phone, tray, all needs met. Mental Status Patient Orientation: Normal For Age Transfers Functional [place] Measure 0=Not Assessed/NA 4=Minimal Assistance 1=Total Assistance 5=Supervision or Setup 2=Maximal Assistance 6=Modified [place] 3=Moderate Assistance 7=Complete IndependenceIRFPAI Quality Coding Scale 6 Independent with activity with or without an assistive device 5 Patient requires set up or clean up by helper. Patient completes activity by themselves 4 Supervision or touching assist (CGA). [place] provide cues , steadying assist 3 The helper provides less than half the effort to complete the activity 2 The helper provides more than half the effort to complete the activity 1 Dependent. The helper does all the effort to complete an activity 7 Patient refused to complete or attempt activity 9 The patient did not perform the activity before the current illness or injury 88 Not attempted due to Medical conditions or safety concerns Transfers (B, C, W/C) (FIM): 1 Sit to/from Stand: 2 Bed to/from Chair: 1 uses a sit to stand machine for transfers, able to labor standards director the parallel bars with max assist but only for about 30 sec at the most Wheelchair Training Wheelchair (FIM): 5 Distance: 150'x2 Wheelchair Level of Assist: 5 Type of Wheelchair: Manual slow and may need occasional rest break Exercises Seated Therapy Exercises: Ankle pumps Seated Reps: 20 Patient stood in the sit to stand machine x 3 while partially supported by the sling, she stood in the parallel bars x 3 with max assist for about 30 sec each time, LAQ left side for 5 min, patient performed manually resisted left side leg press while in the wheelchair 3 sets of 10 Treatments transfers, standing, functional strengthening Assessment Current Status: Poor Progress no change in mobility PT Short Term Goals Short Term Goals Time Frame: May 13, 2016 Wheelchair Distance: 125 PT Fci Goals Fci Goals PT Geometrician Goals Time Frame: May 27, 2016 Transfers (B,C,W/C) (FIM): 3 Sit to Lying (QC): 4 Lying-Sitting on Side/Bed(QC): 4 Sit to Stand (QC): 2 Rollin Roll Left to Right (QC): 4 Chair/Bll-fo-Fbmgk Xfer(QC): 2 Car Transfer (QC): 88 Wheelchair (FIM): 6 Distance: 200' Wheel 50 feet with 2 turns (QC: 6 PT Plan Problem List Problem List: Activity Tolerance, Functional Strength, Safety, Balance, Gait, Transfer, Bed Mobility, ROM Treatment/Plan Treatment Plan: Continue Plan of Care Treatment Plan: Bed Mobility, Education, Functional Activity Carol, Functional Strength, Group Therapy, Gait, Safety, Therapeutic Exercise, Transfers Treatment Duration: May 27, 2016 Visits Per Week: 10-11 Minutes/Day (M-F): 60-90 Minutes/Day (Sat/Herman): 15-30 Safety Risks/Education Patient Education: Transfer Techniques, Correct Positioning, W/C Management, Safety Issues Teaching Recipient: Patient Teaching Methods: Demonstration, Discussion Response to Teaching: Reinforcement Needed Time/GCodes Time In: 1000 Time Out: 1100 Total Billed Treatment Time: 60 Total Billed Treatment 1 visit [facility] 15 min FA 15 min EX 30 min LENORE EGAN PT May 11, 2016 10:56
[2016-05-11] MEDS: DOXYCYCLINE INJECTION 100 MG in NS (IVPB) 100 ML IV SCH ×2 (11:39→20:24)
--- NOTE | 2016-05-11 14:30 | Physical Therapy Daily Note ---
PT Daily Note-Current Subjective Patient in bed pre tx, dozing. She is very tired because she woke up very early in the morning apparently and agrees to perform exercises in bed. She has no complaints of pain except in her left leg with activity. Appearance Patient in bed post tx with nurse call, phone, tray, all needs met. Transfers Functional [place] Measure 0=Not Assessed/NA 4=Minimal Assistance 1=Total Assistance 5=Supervision or Setup 2=Maximal Assistance 6=Modified [place] 3=Moderate Assistance 7=Complete IndependenceIRFPAI Quality Coding Scale 6 Independent with activity with or without an assistive device 5 Patient requires set up or clean up by helper. Patient completes activity by themselves 4 Supervision or touching assist (CGA). [place] provide cues , steadying assist 3 The helper provides less than half the effort to complete the activity 2 The helper provides more than half the effort to complete the activity 1 Dependent. The helper does all the effort to complete an activity 7 Patient refused to complete or attempt activity 9 The patient did not perform the activity before the current illness or injury 88 Not attempted due to Medical conditions or safety concerns Exercises Supine Ex: Ankle pumps, Quad Set, Glut sets, Heel Slides, Short Arc Quads, Straight leg raise, D2 F/E UE, Hip abd/add Supine Reps: 20 bilateral ankle stretching/PROM patient is still able to achieve neutral on both sides, all exercises above are for the left leg except for glut sets and heel slides Treatments functional strengthening, PROM/stretching Assessment Current Status: Poor Progress Patient had a lot of difficulty with the exercises on the left side which is supposed to be her strong leg, she could barely move it without assistance PT Short Term Goals Short Term Goals Time Frame: May 13, 2016 Wheelchair Distance: 150'x2 PT Long-Term Goals Long-Term Goals PT Outboard Motor Tester Goals Time Frame: May 27, 2016 Transfers (B,C,W/C) (FIM): 3 Sit to Lying (QC): 4 Lying-Sitting on Side/Bed(QC): 4 Sit to Stand (QC): 2 Rollin Roll Left to Right (QC): 4 Chair/Imc-eu-Qbztb Xfer(QC): 2 Car Transfer (QC): 88 Wheelchair (FIM): 6 Distance: 200' Wheel 50 feet with 2 turns (QC: 6 PT Plan Problem List Problem List: Activity Tolerance, Functional Strength, Safety, Balance, Gait, Transfer, Bed Mobility, ROM Treatment/Plan Treatment Plan: Continue Plan of Care Treatment Plan: Bed Mobility, Education, Functional Activity Carol, Functional Strength, Group Therapy, Gait, Safety, Therapeutic Exercise, Transfers Treatment Duration: May 27, 2016 Visits Per Week: 10-11 Minutes/Day (M-F): 60-90 Minutes/Day (Sat/Herman): 15-30 Safety Risks/Education Patient Education: Correct Positioning, Safety Issues Teaching Recipient: Patient Teaching Methods: Demonstration, Discussion Response to Teaching: Reinforcement Needed Time/GCodes Time In: 1400 Time Out: 1430 Total Billed Treatment Time: 30 Total Billed Treatment 1 visit EX 30 min LENORE EGAN PT May 11, 2016 14:30
[2016-05-11] MEDS ORDERED: TRIM/SULFAMETH 160/800 (SEPTRA DS) TAB PO SCH (17:00)
[2016-05-11 17:18] VITALS: BP 198/73
[2016-05-11] MEDS ORDERED: cloNIDine 0.2 MG (CATAPRES) TAB PO NR (17:30)
--- NOTE | 2016-05-11 18:35 | Wound Care Progress Note ---
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 Current wound has been present approximately 10 days. 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 She has limited mobility and sensation in her R leg. She has a motorized wheelchair and prior to recent fall was able to perform transfers and to be independent using her L leg. She is now being treated to regain mobility. She does not regularly elevate her legs. PMH: HTN, DM, Polio, R leg. SH: Lives independently, cares for grandchildren. FH: no pertinent. Review of Systems General: No Chills Pulmonary: No Dyspnea Cardiovascular: No: Chest Pain Gastrointestinal: No: Nausea Musculoskeletal: : leg pain Neurological: : Weakness (HPI) Objective Exam Last Set of Vital Signs Vital Signs Date Time Temp Pulse Resp B/P Pulse Ox O2 Delivery O2 Flow Rate FiO2 05/11/16 17:18 97.8 67 18 198/73 95 Room Air Capillary Refill : I&O Intake and Output 05/11/16 00:00 Intake Total 1410 ml Balance 1410 ml Intake Oral 1410 ml # Voids 6 General: Alert, No Acute Distress HEENT: Atraumatic Lungs: Normal Air Movement Abdomen: Soft Skin: Other (R lateral calf --- 0.8 x 0.7 x 0.1 cm, 100% regenerating tissue, partial thickness.) Results Lab Laboratory Tests 05/10/16 20:47: Glucometer 116H 05/11/16 05:03: Glucometer 112H 05/11/16 11:40: Glucometer 91 05/11/16 16:06: Glucometer 92 Assessment/Plan Assessment/Plan Assessment/Plan 1. Venous insufficiency ulcer, R lateral calf, partial thickness. 2. diabetes mellitus, good control. 3. Lymphedema, R leg. 4. Morbid obesity. 5. Polio R leg with neuropathy. Plan: Silver alginate dressings. Arterial assessment difficult with patient habitus. Continue current compression. JENNIFER MOSLEY MD May 11, 2016 18:35
--- NOTE | 2016-05-11 19:17 | PM & R (SOAP) Progress Note ---
Subjective Subjective/Events-last exam Patient was seen in her room this AM Patient max assist to personal banking advisor //Bars Patient having some weeping from Edema Lower extrmities with underlying Chronic venousstasis. DR Johnson here to see and provide wound care Wound care pending Objective Exam Last Set of Vital Signs Vital Signs Date Time Temp Pulse Resp B/P Pulse Ox O2 Delivery O2 Flow Rate FiO2 05/11/16 17:18 97.8 67 18 198/73 95 Room Air Capillary Refill : I&O Intake and Output 05/10/16 23:59 Intake Total 1410 ml Balance 1410 ml Intake Oral 1410 ml # Voids 6 General: Alert, No Acute Distress HEENT: Atraumatic Neck: Supple Lungs: Normal Air Movement Heart: Regular Rate Abdomen: Soft Extremities: Other (chronic venousstasis with legs wrapped some weeping noted by Staff) Skin: Other (R lateral calf --- 0.8 x 0.7 x 0.1 cm, 100% regenerating tissue, partial thickness.) Neuro: Other (Weaknees both lower extremities Rt >lleft with tenderness left post thigh) Results Lab Laboratory Tests 05/08/16 21:17: Glucometer 219H 05/09/16 05:45: Anion Gap 11, BUN/Creatinine Ratio 19, Blood Urea Nitrogen 33H, Calcium Level 7.8L, Carbon Dioxide Level 18L, Chloride Level 112H, Creatinine 1.71H, Estimat Glomerular Filtration Rate 30, Glucose Level 171H, Potassium Level 4.6, Sodium Level 141 05/09/16 17:53: Glucometer 147H 05/09/16 20:36: Glucometer 141H 05/10/16 05:46: Glucometer 136H 05/10/16 11:48: Glucometer 140H 05/10/16 16:21: Glucometer 125H 05/10/16 20:47: Glucometer 116H 05/11/16 05:03: Glucometer 112H 05/11/16 11:40: Glucometer 91 05/11/16 16:06: Glucometer 92 Assessment/Plan Assessment Post-polio syndrome Fall with left leg pain IDDM Morbid obesity Chronic venous stasis BLES wraps in place RN reports weeping DR Johnson here to see and Wound culture pending Plan Continue PT/OT ST has signed off Blood pressure elevated-DR Dunaway has seen-imroved Adjust meds as needed Continue Misha wraps-DR Johnson here to see F/U with culture drainage Patient reports that PCP is DR Hawkins in [facility] Team Conference 05/13/16 NILDA DYER MD May 11, 2016 19:17
[2016-05-11] MEDS: ATORVASTATIN 10 MG (LIPITOR) TABLET PO SCH (20:24)
[2016-05-12 05:08] VITALS: BP 153/76
[2016-05-12] MEDS: inSUlin ASPART (NovoLOG) 1 UNIT/0.01 ML (CHARGE PER UNIT) SC SCH ×4 (05:50→20:28)
[2016-05-12] MEDS: inSUlin ASPART (NovoLOG) 1 UNIT/0.01 ML (CHARGE PER UNIT) SQ SCH ×3 (05:51→18:15)
[2016-05-12] MEDS: PIOGLITAZONE 30MG (ACTOS) TAB PO SCH (06:31)
[2016-05-12] MEDS: LEVOTHYROXINE 150 MCG (LEVOTHROID) TAB PO SCH (06:31)
[2016-05-12] MEDS: GLIMEPIRIDE 2 MG (AMARYL) TAB PO SCH (06:31)
[2016-05-12] MEDS: inSUlin NPH (NovoLIN N) 1 UNIT/0.01 ML (CHARGE PER UNIT) SQ SCH (06:32)
--- NOTE | 2016-05-12 08:27 | Progress Note (SOAP) ---
Subjective Subjective/Events-last exam patient having trouble standing up and has pain in the thigh Objective Exam Vital Signs Date Time Temp Pulse Resp B/P Pulse Ox O2 Delivery O2 Flow Rate FiO2 05/12/16 05:08 97.9 67 18 153/76 96 Room Air 05/11/16 20:00 Room Air 05/11/16 17:18 97.8 67 18 198/73 95 Room Air 05/11/16 09:00 Room Air I & O 05/12/16 07:00 Intake Total 1700 ml Balance 1700 ml Capillary Refill : General Appearance: No Apparent Distress WD/WN HEENT: Normal ENT Inspection Neck: Full Range of Motion Respiratory: Chest Non Tender No Accessory Muscle Use No Respiratory Distress Cardiovascular: Regular Rate, Rhythm Results Lab Laboratory Tests 05/11/16 11:40: Glucometer 91 05/11/16 16:06: Glucometer 92 05/11/16 21:39: Glucometer 89 05/12/16 05:48: Glucometer 106 Microbiology 05/11/16 Gram Stain - Final, Resulted 05/11/16 Wound Culture - Preliminary, Resulted Staphylococcus Aureus Gram Negative Travis Gram Negative Travis#2 Assessment/Plan Assessment/Plan Assess & Plan/Chief Complaint pain in the left thigh causing difficulty in getting around better Postpolio syndrome. Ambulatory dysfunction. Diabetes. Hypothyroid. Hypertension. Chronic renal insufficiency area. . 05/08/16. Post polio syndrome. Ambulatory dysfunction. Diabetes. Hypothyroid. Hypertension put on Toprol. Chronic renal sufficiency. . 05/11/16. Postpolio syndrome. Ambulatory dysfunction. Diabetes. Hypothyroid. Hypertension.. . 05/12/16. Postpolio syndrome. Ambulatory dysfunction. Diabetes. Hypothyroid. Hypertension. Still having pain in the left thigh when he tries to stand up Diagnosis/Problems: Clinical Quality Measures DVT/VTE Risk/Contraindication: Risk Factor Score Per Nursin RFS Level Per Nursing on Admit: 4+=Very High ERASTO TRAMMELL DO May 12, 2016 08:27
[2016-05-12] MEDS: VERAPAMIL SR 240 MG (CALAN SR) TAB PO SCH (09:11)
[2016-05-12] MEDS: DOXYCYCLINE INJECTION 100 MG in NS (IVPB) 100 ML IV SCH (09:11)
[2016-05-12] MEDS: MICONAZOLE 2% POWDER (DESENEX AF) 90 GM TOP SCH ×2 (09:14→20:34)
--- NOTE | 2016-05-12 09:30 | Physical Therapy Daily Note ---
PT Daily Note-Current Subjective Patient in wheelchair pre tx, agrees to PT, states she has 2-3/10 pain in her left thigh. Appearance Patient on bedside commode post tx with nurse call. Mental Status Patient Orientation: Normal For Age Transfers Functional [place] Measure 0=Not Assessed/NA 4=Minimal Assistance 1=Total Assistance 5=Supervision or Setup 2=Maximal Assistance 6=Modified [place] 3=Moderate Assistance 7=Complete IndependenceIRFPAI Quality Coding Scale 6 Independent with activity with or without an assistive device 5 Patient requires set up or clean up by helper. Patient completes activity by themselves 4 Supervision or touching assist (CGA). [place] provide cues , steadying assist 3 The helper provides less than half the effort to complete the activity 2 The helper provides more than half the effort to complete the activity 1 Dependent. The helper does all the effort to complete an activity 7 Patient refused to complete or attempt activity 9 The patient did not perform the activity before the current illness or injury 88 Not attempted due to Medical conditions or safety concerns Transfers (B, C, W/C) (FIM): 1 Scootin Rollin Supine to/from Sit: 2 Sit to/from Stand: 2 Bed to/from Chair: 1 Patient uses a sit to stand lift for transfers, she can automatic coin machine mechanic the parallel bars with max assist but cannot stand outside of the parallel bars even with her crutches that she used premorbidly Wheelchair Training Wheelchair (FIM): 5 Distance: 150'x2 Wheelchair Level of Assist: 5 Type of Wheelchair: Manual Patient needs an occasional rest break and turning is hard for her but she does not need assist. Exercises LAQ left side for 5 min, patient stood in the sit to stand and performed small mini-squats for about 30 seconds x3, patient stood in the parallel bars x3 for about 30 seconds each time, patient attempted to lay on the therapy mat to perform exercises but she could not lay flat she says due to rolls of fat in her low back and bottom Treatments bed mobility and transfers, functional strengthening, standing Assessment Current Status: Poor Progress Patient stood with a little less assist but is still max assist, otherwise her mobility has not changed PT Short Term Goals Short Term Goals Time Frame: May 13, 2016 Wheelchair Distance: 150'x2 PT Program Schedule Clerk Goals Program Schedule Clerk Goals PT Group Home Goals Time Frame: May 27, 2016 Transfers (B,C,W/C) (FIM): 3 Sit to Lying (QC): 4 Lying-Sitting on Side/Bed(QC): 4 Sit to Stand (QC): 2 Rollin Roll Left to Right (QC): 4 Chair/Lvk-ta-Bwbnt Xfer(QC): 2 Car Transfer (QC): 88 Wheelchair (FIM): 6 Distance: 200' Wheel 50 feet with 2 turns (QC: 6 PT Plan Problem List Problem List: Activity Tolerance, Functional Strength, Safety, Balance, Gait, Transfer, Bed Mobility, ROM Treatment/Plan Treatment Plan: Continue Plan of Care Treatment Plan: Bed Mobility, Education, Functional Activity Carol, Functional Strength, Group Therapy, Gait, Safety, Therapeutic Exercise, Transfers Treatment Duration: May 27, 2016 Visits Per Week: 10-11 Minutes/Day (M-F): 60-90 Minutes/Day (Sat/Herman): 15-30 Safety Risks/Education Patient Education: Transfer Techniques, Correct Positioning, W/C Management, Safety Issues Teaching Recipient: Patient Teaching Methods: Demonstration, Discussion Response to Teaching: Reinforcement Needed Time/GCodes Time In: 830 Time Out: 930 Total Billed Treatment Time: 60 Total Billed Treatment 1 visit [facility] 15 min EX 15 min FA 30 min LENORE EGAN PT May 12, 2016 09:30
--- NOTE | 2016-05-12 10:12 | Occupational Ther Daily Note ---
OT Current Status-Daily Note Subjective Pt alert, sitting EOB. Pt stated that her R LE was going numb from sitting on EOB and ulnar side of L forearm was numb. Pt's L forearm and hand appears to have increased in swelling. Pt agreed to therapy. Declined shower at this time. Pt worried about her grandchildren and is ready to get back home to them. Mental Status/Objective Patient Orientation: Person, Place, Time, Situation Functional [place] Measure 0=Not Assessed/NA 4=Minimal Assistance 1=Total Assistance 5=Supervision or Setup 2=Maximal Assistance 6=Modified [place] 3=Moderate Assistance 7=Complete [place] Attachments: IV ADL-Treatment Pt was able to complete eating sitting on EOB by self. Pt requested to use BSC. Transfer with sit to stand lift from EOB to BSC, dependent with toileting. Transferred pt from BSC to w/c with sit to stand lift. Rewrapped pt 's lower legs and nrsg applied fresh bandage to wound on R lower leg. Pt transported to therapy gym via w/c. Pt completed arm bike 15 min at 20 lynn resistance to increase strength and activity tolerance for daily functional tasks. Pt then maneuvered w/c from therapy gym for arm strength. After therapy , pt sitting in w/c with call light/phone in reach. All needs met in room. Functional [place] Measure 0=Not Assessed/NA 4=Minimal Assistance 1=Total Assistance 5=Supervision or Setup 2=Maximal Assistance 6=Modified [place] 3=Moderate Assistance 7=Complete IndependenceIRFPAI Quality Coding Scale 6 Independent with activity with or without an assistive device 5 Patient requires set up or clean up by helper. Patient completes activity by themselves 4 Supervision or touching assist (CGA). [place] provide cues , steadying assist 3 The helper provides less than half the effort to complete the activity 2 The helper provides more than half the effort to complete the activity 1 Dependent. The helper does all the effort to complete an activity 7 Patient refused to complete or attempt activity 9 The patient did not perform the activity before the current illness or injury 88 Not attempted due to Medical conditions or safety concerns OT Short Term Goals Short Term Goals Time Frame: May 13, 2016 Lower Body Dressing(FIM): 4 Toileting(FIM): 3 Toilet/Commode Transfer(FIM): 2 Additional Short Term Goals: 2-Verbalize Understanding, 3-ImproveStrength/Carol 1=Demonstrate adherence to instructed precautions during ADL tasks. 2=Patient will verbalize/demonstrate understanding of assistive devices/ modifications for ADL. 3=Patient will improve strength/tolerance for activity to enable patient to perform ADL's. OT Residential Goals Residential Goals Time Frame: May 27, 2016 1=Demonstrate adherence to instructed precautions during ADL tasks. 2=Patient will verbalize/demonstrate understanding of assistive devices/ modifications for ADL. 3=Patient will improve strength/tolerance for activity to enable patient to perform ADL's. OT Education/Plan Problem List/Assessment Pt would benefit from skilled OT to increase her independence in basic transfers and self care to allow her to safely return to her home to live independently and decrease caregiver burden Discharge Recommendations Plan/Recommendations: Continue POC Treatment Plan/Plan of Care Patient would benefit from OT for education, treatment and training to promote independence in ADL's, mobility, safety and/or upper extremity function for ADL' s. Plan of Care: ADL Retraining, Functional Mobility, Group Exercise/Act as Ind ( education, exercise, activity tolerance, functional activities, socialization), UE Funct Exercise/Act, UE Neuromus Re-Ed/Coord, W/C Management Training Treatment Duration: May 27, 2016 Visits Per Week: 10-11 Minutes/Day (M-F): 75-90 Minutes/Day (Sat/Herman): 15-30 Agreement: Yes Rehab Potential: Good Time/GCodes Start Time: 07:00 Stop Time: 08:30 Total Time Billed (hr/min): 90 Billed Treatment Time 1 visit-ADL 4 (60 min) EX 2 (30 min) STEPHANIE WILLOUGHBY May 12, 2016 10:12
--- NOTE | 2016-05-12 12:11 | PM & R (SOAP) Progress Note ---
Subjective Subjective/Events-last exam Patient was seen in GYM earlier today PT concerned re lack of progress with therapies questions possible impingement in spine contributing to her deficits.Will reimage and check records again from OSH to check on prior studies. Review of Systems Musculoskeletal: : back pain: leg pain Neurological: : Weakness Objective Exam Last Set of Vital Signs Vital Signs Date Time Temp Pulse Resp B/P Pulse Ox O2 Delivery O2 Flow Rate FiO2 05/12/16 09:00 Room Air 05/12/16 05:08 97.9 67 18 153/76 96 Capillary Refill : I&O Intake and Output 05/12/16 00:00 Intake Total 1400 ml Balance 1400 ml Intake Oral 1300 ml IV Total 100 ml # Voids 6 # Bowel Movements 1 General: Alert, No Acute Distress HEENT: Atraumatic Neck: Supple Lungs: Normal Air Movement Heart: Regular Rate Abdomen: Soft Extremities: Other (chronic venousstasis with legs wrapped some weeping noted by Staff) Skin: Other (R lateral calf --- 0.8 x 0.7 x 0.1 cm, 100% regenerating tissue, partial thickness.) Neuro: Other (Weaknees both lower extremities Rt >lleft with tenderness left post thigh) Results Lab Laboratory Tests 05/09/16 17:53: Glucometer 147H 05/09/16 20:36: Glucometer 141H 05/10/16 05:46: Glucometer 136H 05/10/16 11:48: Glucometer 140H 05/10/16 16:21: Glucometer 125H 05/10/16 20:47: Glucometer 116H 05/11/16 05:03: Glucometer 112H 05/11/16 11:40: Glucometer 91 05/11/16 16:06: Glucometer 92 05/11/16 21:39: Glucometer 89 05/12/16 05:48: Glucometer 106 Microbiology 05/11/16 Gram Stain - Final, Resulted 05/11/16 Wound Culture - Preliminary, Resulted Staphylococcus Aureus Gram Negative Travis Gram Negative Rtavis#2 Assessment/Plan Assessment Post-polio syndrome Fall with left leg pain IDDM Morbid obesity Chronic venous stasis BLES wraps in place RN reports weeping DR Johnson has seen and Wound culture noted Plan Continue PT/OT ST has signed off Blood pressure elevated-DR Dunaway has seen-imroved Adjust meds as needed Continue Misha wraps-DR Johnson following F/U with culture drainage-done Patient reports that PCP is [facility] Team Conference tomorrow 05/13/16 Reimage as per above see orders NILDA DYER MD May 12, 2016 12:11
--- NOTE | 2016-05-12 13:13 | Diagnostic Imaging Report ---
INDICATION: Bilateral lower extremity weakness and loss of muscle tone. AP view of the pelvis is obtained with coned AP and lateral views of both hips. Study is limited due to patient body habitus. There is deformity of the right ischium which may be due to old fracture or other insult. There is elongation of the right femoral neck. Findings in the right hip region may be related to nonweightbearing status with shallow acetabulum. There is no evidence of an acute fracture or malalignment. Atherosclerotic calcifications are noted. There is an intrauterine device present. IMPRESSION: Decreased volume of right hemipelvic structures which may be related to chronic nonweightbearing. There is no acute abnormality identified. Dictated by: Dictated on workstation # [id number]
--- NOTE | 2016-05-12 13:16 | Diagnostic Imaging Report ---
INDICATION: Polio and limited muscle tone in the lower extremities. AP, oblique and lateral views of both knees are obtained. Study is limited due to patient body habitus however there is no evidence of fracture or malalignment. No abnormal lytic or sclerotic focus is detected. There is no evidence of joint fluid. IMPRESSION: No acute abnormality identified on limited study. Dictated by: Dictated on workstation # [id number]
--- NOTE | 2016-05-12 13:16 | Diagnostic Imaging Report ---
INDICATION: Weakness AP and lateral views of the lumbar spine are obtained. Study is limited by patient body habitus. There is also rotation on the current study. Lumbar spinal curvature and alignment are within normal limits. Note is made of degenerative spurring at the T11-12 disc level. No acute fracture or malalignment is appreciated. IMPRESSION: Limited study related to primarily to patient body habitus. There is no evidence of an acute abnormality. Note is made of calcification of the right upper quadrant which likely represent gallstones. Dictated by: Dictated on workstation # [id number]
--- NOTE | 2016-05-12 13:29 | Physical Therapy Daily Note ---
PT Daily Note-Current Subjective Patient in bed pre tx, agrees to PT, states she has pain of 5/10 with activity in her left thigh. Appearance Patient in wheelchair at bedside with nurse call, phone, tray, all needs met. Mental Status Patient Orientation: Normal For Age Transfers Functional [place] Measure 0=Not Assessed/NA 4=Minimal Assistance 1=Total Assistance 5=Supervision or Setup 2=Maximal Assistance 6=Modified [place] 3=Moderate Assistance 7=Complete IndependenceIRFPAI Quality Coding Scale 6 Independent with activity with or without an assistive device 5 Patient requires set up or clean up by helper. Patient completes activity by themselves 4 Supervision or touching assist (CGA). [place] provide cues , steadying assist 3 The helper provides less than half the effort to complete the activity 2 The helper provides more than half the effort to complete the activity 1 Dependent. The helper does all the effort to complete an activity 7 Patient refused to complete or attempt activity 9 The patient did not perform the activity before the current illness or injury 88 Not attempted due to Medical conditions or safety concerns Transfers (B, C, W/C) (FIM): 1 Scootin Rollin Supine to/from Sit: 3 Sit to/from Stand: 1 Bed to/from Chair: 1 better bed mobility but still needs assist with both legs getting into or out of bed. Wheelchair Training Wheelchair (FIM): 5 Distance: 150' Wheelchair Level of Assist: 5 Type of Wheelchair: Manual slow, needs rest breaks, has trouble turning but does not need assist Treatments bed mobility and transfers, patient stood in the parallel bars x3 for about 30 sec each time Assessment Current Status: Poor Progress patient had slightly better bed mobility PT Short Term Goals Short Term Goals Time Frame: May 13, 2016 Wheelchair Distance: 150'x2 PT [facility]iary Goals Card Fixer Goals PT Card Fixer Goals Time Frame: May 27, 2016 Transfers (B,C,W/C) (FIM): 3 Sit to Lying (QC): 4 Lying-Sitting on Side/Bed(QC): 4 Sit to Stand (QC): 2 Rollin Roll Left to Right (QC): 4 Chair/Zdx-rn-Dlptc Xfer(QC): 2 Car Transfer (QC): 88 Wheelchair (FIM): 6 Distance: 200' Wheel 50 feet with 2 turns (QC: 6 PT Plan Problem List Problem List: Activity Tolerance, Functional Strength, Safety, Balance, Gait, Transfer, Bed Mobility, ROM Treatment/Plan Treatment Plan: Continue Plan of Care Treatment Plan: Bed Mobility, Education, Functional Activity Carol, Functional Strength, Group Therapy, Gait, Safety, Therapeutic Exercise, Transfers Treatment Duration: May 27, 2016 Visits Per Week: 10-11 Minutes/Day (M-F): 60-90 Minutes/Day (Sat/Herman): 15-30 Safety Risks/Education Patient Education: Transfer Techniques, Correct Positioning, W/C Management, Safety Issues Teaching Recipient: Patient Teaching Methods: Demonstration, Discussion Response to Teaching: Reinforcement Needed Time/GCodes Time In: 1300 Time Out: 1330 Total Billed Treatment Time: 30 Total Billed Treatment 1 visit [facility] 10 min FA 20 min LENORE EGAN PT May 12, 2016 13:29
[2016-05-12] MEDS: HYDROcodone/APAP 5 MG/325 MG (LORTAB) TAB PO PRN (15:26)
[2016-05-12 18:06] VITALS: BP 170/69
[2016-05-12] MEDS: DOXYCYCLINE 100 MG (VIBRAMYCIN) TABLET PO SCH (18:14)
[2016-05-12] MEDS: ATORVASTATIN 10 MG (LIPITOR) TABLET PO SCH (20:34)
[2016-05-13] MEDS: HYDROcodone/APAP 5 MG/325 MG (LORTAB) TAB PO PRN (01:19)
[2016-05-13 06:00] VITALS: BP 184/70
[2016-05-13] MEDS: inSUlin ASPART (NovoLOG) 1 UNIT/0.01 ML (CHARGE PER UNIT) SC SCH ×4 (06:00→21:00)
[2016-05-13] MEDS: LEVOTHYROXINE 150 MCG (LEVOTHROID) TAB PO SCH (06:01)
[2016-05-13] MEDS: PIOGLITAZONE 30MG (ACTOS) TAB PO SCH (06:01)
[2016-05-13] MEDS: GLIMEPIRIDE 2 MG (AMARYL) TAB PO SCH (06:01)
[2016-05-13] MEDS: DOXYCYCLINE 100 MG (VIBRAMYCIN) TABLET PO SCH ×2 (06:01→17:58)
[2016-05-13] MEDS: inSUlin ASPART (NovoLOG) 1 UNIT/0.01 ML (CHARGE PER UNIT) SQ SCH ×3 (06:02→17:58)
[2016-05-13] MEDS: inSUlin NPH (NovoLIN N) 1 UNIT/0.01 ML (CHARGE PER UNIT) SQ SCH (06:03)
--- NOTE | 2016-05-13 08:40 | Progress Note (SOAP) ---
Subjective Subjective/Events-last exam hypertension increased the Toprol. Pain in the back of the upper left thigh consult ordered. Diabetes. Post polio Objective Exam Vital Signs Date Time Temp Pulse Resp B/P Pulse Ox O2 Delivery O2 Flow Rate FiO2 05/13/16 06:00 97.4 69 18 184/70 97 Room Air 05/12/16 21:00 Room Air 05/12/16 18:06 96.6 69 14 170/69 95 Room Air 05/12/16 09:00 Room Air I & O 05/13/16 07:00 Intake Total 840 ml Balance 840 ml Capillary Refill : General Appearance: No Apparent Distress WD/WN Results Lab Laboratory Tests 05/12/16 11:01: Glucometer 140H 05/12/16 15:55: Glucometer 160H 05/12/16 20:18: Glucometer 138H 05/13/16 05:29: Glucometer 121H Microbiology 05/11/16 Gram Stain - Final, Resulted 05/11/16 Wound Culture - Preliminary, Resulted Staphylococcus Aureus Probable Pseudomonas Gram Negative Travis#2 Assessment/Plan Assessment/Plan Assess & Plan/Chief Complaint pain in the left thigh causing difficulty in getting around better Postpolio syndrome. Ambulatory dysfunction. Diabetes. Hypothyroid. Hypertension. Chronic renal insufficiency area. . 05/08/16. Post polio syndrome. Ambulatory dysfunction. Diabetes. Hypothyroid. Hypertension put on Toprol. Chronic renal sufficiency. . 05/11/16. Postpolio syndrome. Ambulatory dysfunction. Diabetes. Hypothyroid. Hypertension.. . 05/12/16. Postpolio syndrome. Ambulatory dysfunction. Diabetes. Hypothyroid. Hypertension. Still having pain in the left thigh when he tries to stand up. . 05/13/16. Pain in left thigh back. Hypertension. Diabetes. Hypothyroid. Increased the Toprol. Consult with pain management Diagnosis/Problems: Clinical Quality Measures DVT/VTE Risk/Contraindication: Risk Factor Score Per Nursin RFS Level Per Nursing on Admit: 4+=Very High ERASTO TRAMMELL DO May 13, 2016 08:40
--- NOTE | 2016-05-13 09:20 | PM & R (SOAP) Progress Note ---
Subjective Subjective/Events-last exam Patient was seen in HER ROOM THIS am dISCUSSED CASE WITH dr Barnes AND rn.xRAYS DONE YESTERDAY EQUIVOCAL TO EXPAIN PATIENTS CONTINUED PAIN IN POSTERIOR LEFT THIGH WITH LITTLE IMPROVEMENT IN MOBILITY.mri NOT EQUIPPED TO HANDLE PATIENTS WT wILL TRY ct SCAN AND SEE IF dr Martinez pAIN SPECIALIST AVAILABLE TO SEE PATIENT RE POSSIBLE INJECTION WHICH MIGHT HELP PATIENT Review of Systems Musculoskeletal: : leg pain Neurological: : Weakness Objective Exam Last Set of Vital Signs Vital Signs Date Time Temp Pulse Resp B/P Pulse Ox O2 Delivery O2 Flow Rate FiO2 05/13/16 06:00 97.4 69 18 184/70 97 Room Air Capillary Refill : I&O Intake and Output 05/13/16 00:00 Intake Total 1340 ml Balance 1340 ml Intake Oral 1240 ml IV Total 100 ml # Voids 5 General: Alert, No Acute Distress HEENT: Atraumatic Neck: Supple Lungs: Normal Air Movement Heart: Regular Rate Abdomen: Soft Extremities: Other (chronic venousstasis with legs wrapped some weeping noted by Staff) Skin: Other (R lateral calf --- 0.8 x 0.7 x 0.1 cm, 100% regenerating tissue, partial thickness.) Neuro: Other (Weaknees both lower extremities Rt >lleft with tenderness left post thigh) Results Lab Laboratory Tests 05/10/16 11:48: Glucometer 140H 05/10/16 16:21: Glucometer 125H 05/10/16 20:47: Glucometer 116H 05/11/16 05:03: Glucometer 112H 05/11/16 11:40: Glucometer 91 05/11/16 16:06: Glucometer 92 05/11/16 21:39: Glucometer 89 05/12/16 05:48: Glucometer 106 05/12/16 11:01: Glucometer 140H 05/12/16 15:55: Glucometer 160H 05/12/16 20:18: Glucometer 138H 05/13/16 05:29: Glucometer 121H Microbiology 05/11/16 Gram Stain - Final, Resulted 05/11/16 Wound Culture - Preliminary, Resulted Staphylococcus Aureus Probable Pseudomonas Gram Negative Travis#2 Assessment/Plan Assessment Post-polio syndrome Fall with left leg pain IDDM Morbid obesity Chronic venous stasis BLES wraps in place RN reports weeping DR Johnson has seen and Wound culture noted Plan Continue PT/OT ST has signed off Blood pressure elevated-DR Barnes has seen-imroved Adjust meds as needed Continue Misha wraps-DR Johnson following F/U with culture drainage-done Patient reports that PCP is DR Hawkins in [facility] Team Conference LATER TODAY-sEE REPORT FOR FULL FUNCTIONAL UPDATE AND poc AND elos Reimage as per above see orders dR Martinez CONSULT PAIN SPECIALIST IF AVAILABLE sEE ORDERS NILDA DYER MD May 13, 2016 09:20
[2016-05-13] MEDS: meTOproloL SUCCINATE 50 MG (TOPROL XL) TAB PO SCH (09:35)
[2016-05-13] MEDS: MICONAZOLE 2% POWDER (DESENEX AF) 90 GM TOP SCH ×2 (09:35→21:24)
[2016-05-13] MEDS: VERAPAMIL SR 240 MG (CALAN SR) TAB PO SCH (09:35)
--- NOTE | 2016-05-13 09:50 | Diagnostic Imaging Report ---
CLINICAL INDICATION: Patient with bilateral weak legs, left leg more so. The patient has a history of polio which affected the right side. EXAM: An axial CT scan of the lumbar spine was performed without IV contrast. Sagittal and coronal reformatted images were created. COMPARISON: X-ray of the lumbar spine dated 05/12/2016. FINDINGS: There is greatly limited visualization of bony detail due to patient body habitus. L5-S1: There is bilateral L5 chronic appearing spondylolysis with grade 2 anterolisthesis of L5 on S1. There is severe loss of intervertebral disc height with vacuum disc changes and mild endplate irregularity. There is severe bilateral neuroforaminal narrowing. Evaluation for the status of the central canal cannot be evaluated due to patient body habitus. L4-5: There is suggestion of diffuse disc bulge with disc spurs extending into the foraminal regions bilaterally. There is bilateral facet arthropathy and concern for ligamentum flavum buckling causing severe central canal narrowing. There is at least mild bilateral neuroforaminal narrowing. L3-L4: There are small anterior disc spurs. REMAINDER OF THE LUMBAR SPINE: There are small degenerative spurs seen throughout the rest of the lumbar spine but most pronounced at the T11-T12 level anteriorly. There is moderate loss of intervertebral disc height at the T11-T12 level as well with concern for at least moderate bilateral neuroforaminal narrowing and facet arthropathy. There is no significant paraspinal soft tissue abnormality seen. The visualized lung apices show no significant abnormality. IMPRESSION: 1. There is chronic appearing bilateral L5 spondylolysis with grade 2 anterolisthesis of L5 on S1. There is associated severe bilateral neuroforaminal narrowing. 2. There is concern for L4-5 diffuse disc bulge with facet arthropathy and ligamentum flavum buckling which causes severe central canal narrowing. 3. The remainder of the lumbar spine shows multilevel degenerative disease. Dictated by: Dictated on workstation # [id number]
--- NOTE | 2016-05-13 09:59 | Physical Therapy Daily Note ---
PT Daily Note-Current Subjective Pt sitting in W/C upon arrival. Per nursing, pt is going to get CT at 9am and pt needs to be in bed for transport. Pt agrees to PT. Pain Numeric Pain Scale: 3 Location: Dorsal Location Body Site: Back Pain Description: Ache Mental Status Patient Orientation: Person, Place, Time, Situation Transfers Functional [place] Measure 0=Not Assessed/NA 4=Minimal Assistance 1=Total Assistance 5=Supervision or Setup 2=Maximal Assistance 6=Modified [place] 3=Moderate Assistance 7=Complete IndependenceIRFPAI Quality Coding Scale 6 Independent with activity with or without an assistive device 5 Patient requires set up or clean up by helper. Patient completes activity by themselves 4 Supervision or touching assist (CGA). [place] provide cues , steadying assist 3 The helper provides less than half the effort to complete the activity 2 The helper provides more than half the effort to complete the activity 1 Dependent. The helper does all the effort to complete an activity 7 Patient refused to complete or attempt activity 9 The patient did not perform the activity before the current illness or injury 88 Not attempted due to Medical conditions or safety concerns Scootin Rollin Roll Left to Right (QC): 1 Supine to/from Sit: 3 Sit to/from Stand: 1 Sit to Lying (QC): 3 Sit to Stand (QC): 1 Chair/Osi-xr-Vdokg Xfer(QC): 1 Bed to/from Chair: 1 Weight Bearing Weight Bearing Restriction: Full Weight Bearing Location Restriction: LE Bilateral Wheelchair Training Does the Pt Use a Wheelchair?: Yes Type of Wheelchair: Manual Pt did not propel W/C this morning due to pt having CT at 9 and pt needing to be in bed by then. Exercises Seated Therapy Exercises: Sit to stand, Long arc quads Seated Reps: 20 Standing: Mini squats (for approx. 30sec. X3) Treatments Pt completes LAQ from W/C. Pt completes sit to stands using sit to stand lift for practice. Pt completes mini squats for 30 sec. X3 times. Pt takes short rest break after each activity. Pt asks how long she will stay in Rehab and pt discussed how weekly Wednesday meeting work and that pt will probably continue to stay until MRSA precaution is lifted. PT advised will know more after this afternoon's meeting. After short rest, pt uses sit to stand lift to transfer from W/C to supine in bed for CT. Pt is left with all needs met and Xray staff present to take pt to CT of low back. Assessment Current Status: Fair Progress Pt continues to have weakness BLE which prevents pt from being more independent with transfers and being able to ambulate. Pt is dependent currently with transfers and uses sit to stand lift to get from bed to W/C and W/C to bed. PT Short Term Goals Short Term Goals Time Frame: May 13, 2016 Wheelchair Distance: 150' PT Jail Goals Jail Goals PT Jail Goals Time Frame: May 27, 2016 Transfers (B,C,W/C) (FIM): 3 Sit to Lying (QC): 4 Lying-Sitting on Side/Bed(QC): 4 Sit to Stand (QC): 2 Rollin Roll Left to Right (QC): 4 Chair/Lbq-ud-Dwmcs Xfer(QC): 2 Car Transfer (QC): 88 Wheelchair (FIM): 6 Distance: 200' Wheel 50 feet with 2 turns (QC: 6 PT Plan Problem List Problem List: Activity Tolerance, Functional Strength, Safety, Balance, Gait, Transfer, Bed Mobility, ROM Treatment/Plan Treatment Plan: Continue Plan of Care Treatment Plan: Bed Mobility, Education, Functional Activity Carol, Functional Strength, Group Therapy, Gait, Safety, Therapeutic Exercise, Transfers Treatment Duration: May 27, 2016 Visits Per Week: 10-11 Minutes/Day (M-F): 60-90 Minutes/Day (Sat/Herman): 15-30 Safety Risks/Education Patient Education: Transfer Techniques, Correct Positioning, Safety Issues Teaching Recipient: Patient Teaching Methods: Discussion Response to Teaching: Verbalize Understanding Time/GCodes Time In: 815 Time Out: 900 Total Billed Treatment Time: 45 Total Billed Treatment visit, EX X2 (30m) & FA (15m) ARACELIS TAI PTA May 13, 2016 09:59
--- NOTE | 2016-05-13 12:58 | Occupational Ther Daily Note ---
OT Current Status-Daily Note Subjective Pt in bed, agrees to treatment. Pt requests shower this am. Mental Status/Objective Functional [place] Measure 0=Not Assessed/NA 4=Minimal Assistance 1=Total Assistance 5=Supervision or Setup 2=Maximal Assistance 6=Modified [place] 3=Moderate Assistance 7=Complete [place] ADL-Treatment Pt supine to sit with moderate assistance. Transfer EOB to shower chair using sit to stand lift. To shower room via rolling shower chair. Pt able to doff clothing with SBA except socks which required total assist. Seated bathing completed using hand held shower and long handled sponge. Pt able to complete bathing tasks with SBA and increased time using modified technique. Pt donned bra and pullover shirt with set up. Pt donned skirt over head and pulled down to waist with set up while seated. RN present to dress and wrap bilateral LE. Total assist required to don socks. Increased time required for bathing and dressing tasks. Pt combed hair with modified independence. Functional [place] Measure 0=Not Assessed/NA 4=Minimal Assistance 1=Total Assistance 5=Supervision or Setup 2=Maximal Assistance 6=Modified [place] 3=Moderate Assistance 7=Complete IndependenceIRFPAI Quality Coding Scale 6 Independent with activity with or without an assistive device 5 Patient requires set up or clean up by helper. Patient completes activity by themselves 4 Supervision or touching assist (CGA). [place] provide cues , steadying assist 3 The helper provides less than half the effort to complete the activity 2 The helper provides more than half the effort to complete the activity 1 Dependent. The helper does all the effort to complete an activity 7 Patient refused to complete or attempt activity 9 The patient did not perform the activity before the current illness or injury 88 Not attempted due to Medical conditions or safety concerns Grooming (FIM): 6 Bathing (FIM): 5 Upper Body (FIM): 5 Upper Body Dressing (QC): 5 On/Off Footwear (QC): 1 Shower Transfer(FIM): 1 Other Treatment Pt propelled w/c to therapy gym with increased time. Arm bike x15 minutes to increase overall strength and activity tolerance needed for functional tasks. Pt completed task with 15 lynn resistance. No rest breaks needed. Return to room via w/c. Pt transferred w/c to EOB with total assist using sit to stand lift. Sit to supine with assist for bilateral LE. Pt in bed with needs met after session. OT Short Term Goals Short Term Goals Time Frame: May 13, 2016 Lower Body Dressing(FIM): 4 Toileting(FIM): 3 Toilet/Commode Transfer(FIM): 2 Additional Short Term Goals: 2-Verbalize Understanding, 3-ImproveStrength/Carol 1=Demonstrate adherence to instructed precautions during ADL tasks. 2=Patient will verbalize/demonstrate understanding of assistive devices/ modifications for ADL. 3=Patient will improve strength/tolerance for activity to enable patient to perform ADL's. OT Real Estate Assessor Goals Real Estate Assessor Goals Time Frame: May 27, 2016 1=Demonstrate adherence to instructed precautions during ADL tasks. 2=Patient will verbalize/demonstrate understanding of assistive devices/ modifications for ADL. 3=Patient will improve strength/tolerance for activity to enable patient to perform ADL's. OT Education/Plan Problem List/Assessment Pt would benefit from skilled OT to increase her independence in basic transfers and self care to allow her to safely return to her home to live independently and decrease caregiver burden Discharge Recommendations Plan/Recommendations: Continue POC Treatment Plan/Plan of Care Patient would benefit from OT for education, treatment and training to promote independence in ADL's, mobility, safety and/or upper extremity function for ADL' s. Plan of Care: ADL Retraining, Functional Mobility, Group Exercise/Act as Ind ( education, exercise, activity tolerance, functional activities, socialization), UE Funct Exercise/Act, UE Neuromus Re-Ed/Coord, W/C Management Training Treatment Duration: May 27, 2016 Visits Per Week: 10-11 Minutes/Day (M-F): 75-90 Minutes/Day (Sat/Herman): 15-30 Agreement: Yes Rehab Potential: Good Time/GCodes Start Time: 09:45 Stop Time: 11:15 Total Time Billed (hr/min): 90 Billed Treatment Time 1 visit, ADLx5(75minutes), EX(15minutes) TAMMIE PEREZ OT May 13, 2016 12:57
--- NOTE | 2016-05-13 13:11 | Consultation ---
History of Present Illness History of Present Illness Patient Consulted On(alida/time) 05/13/16 13:05 Date of Admission May 06, 2016 Reason for Visit: low back and hip pain History of Present Illness Patient is a 66-year-old female seen in consultation for chief complaint of pain located in the right side of her lower back into her right posterior hip. She rates this pain as a 4 out of 10 on a 10 point visual analog scale and describes it as dull, aching, and intermittent in nature. Patient reports no pain at rest and pain only occurs when she lays down flat. Pain is improved some by her medication. Currently on hydrocodone 5/325 one tab every 4 hours as needed for breakthrough pain and tramadol 50 mg every 6 hours as needed for breakthrough pain which she reports she is also on at home on chronically. She denies any pain radiating down her legs and no numbness or tingling in her legs or feet. She reports no previous history of back injections to help with her pain complaints. Allergies and Home Medications Allergies Uncoded Allergies: pcn (Allergy, Intermediate, RASH, 05/05/16) Home Medications Calcium Carbonate/Vitamin D3 1 Each Tablet 1 TAB PO BID (Reported) Glimepiride 2 Mg Tablet 2 MG PO DAILY (Reported) Hydrocodone/Acetaminophen 1 Each Tablet 1 TAB PO QID PRN PRN SEVERE PAIN ( Reported) Insulin Aspart 100 Unit/1 Ml Susp 8-20 UNIT SQ AC (Reported) Insulin NPH Human Isophane 100 Unit/1 Ml Vial 50 UNIT SQ DAILY (Reported) Levothyroxine Sodium 150 Mcg Tablet 150 MCG PO DAILY (Reported) [place] 3 Polyunsat Fatty Acids 1,000 Mg Cap 1,000 MG PO DAILY (Reported) Pedi Mv No.79/Ferrous Fumarate 18 Mg Tab.chew 18 MG PO DAILY (Reported) Pioglitazone HCl 30 Mg Tablet 15 MG PO DAILY (Reported) TAKES 1/2 (30MG) TABLET Simvastatin 40 Mg Tablet 20 MG PO HS (Reported) TAKES 1/2 (40MG) TABLET Tramadol HCl 50 Mg Tablet 50-100 MG PO QID PRN PRN PAIN (Reported) Verapamil HCl 240 Mg Tablet.er 240 MG PO DAILY (Reported) Past Tsajwpq-Hbnuhs-Ipuuhe Hx Patient Social History Alcohol Use: Denies Use Recreational Drug Use: No Smoking Status: Never a Smoker Recent Foreign Travel: No Contact w/Someone Who Travel: No Recent Infectious Disease Expo: No Recent Hopitalizations: No Physical Abuse Screen: No Sexual Abuse: No Immunizations Up To Date Date of Pneumonia Vaccine: Mar 22, 2013 Date of Influenza Vaccine: Dec 21, 2015 Seasonal Allergies Seasonal Allergies: Yes Respiratory Respiratory Disorders: Pneumonia Reproductive System Sexually Transmitted Disease: No HIV/AIDS: No Female Reproductive Disorders: Denies Genitourinary Genitourinary Disorders: Kidney Infection, Renal Failure HEENT HEENT Disorders: Cataract Loss of Vision: Denies Hearing Impairment: Denies Blood Transfusions Adverse Reaction to a Blood Tr: No Family Medical History Family Medial History: Diabetes mellitus 19 FATHER 19 MOTHER Hypertension 19 FATHER Myocardial infarction 19 FATHER 19 MOTHER Review of Systems-General Constitutional: see HPI EENTM: no symptoms reported Respiratory: no symptoms reported see HPI Cardiovascular: no symptoms reported Gastrointestinal: no symptoms reported Musculoskeletal: see HPI Physical Exam-General Problems Physical Exam Vital Signs Vital Sign - Last 12Hours 05/07/16 04:08 Temp 96.8 Pulse 85 Resp 20 B/P 160/73 Pulse Ox 97 O2 Delivery Room Air Capillary Refill : General Appearance: no apparent distress obese Eyes: Bilateral Eye EOMI, Bilateral Eye PERRL Neck: full range of motion normal inspection Respiratory: no respiratory distress no accessory muscle use Gastrointestinal: non tender soft Back: other (mild tenderness to palpation over the lower lumbar spine paraspinal muscles. Tenderness to palpation over bilateral sacroiliac joints, right greater than left. Examination of lower back and hips limited some secondary to body habitus) Neurologic/Psychiatric: no motor/sensory deficits alert normal mood/affect oriented x 3 Assessment/Plan Assessment/Plan Admission Diagnosis/Plan CT lumbar spine April 22, 2016 1. There is chronic appearing bilateral L5 spondylolysis with grade 2 anterolisthesis of L5 on S1. There is associated severe bilateral neuroforaminal narrowing. 2. There is concern for L4-5 diffuse disc bulge with facet arthropathy and ligamentum flavum buckling which causes severe central canal narrowing. 3. The remainder of the lumbar spine shows multilevel degenerative disease. Assessment: Sacrococcygeal disorder, intervertebral disc disorder, lumbar spondylosis, spondylolysis Plan: Patient was counseled about the etiology of her pain complaints at this time she reports her pain is located primarily in the right posterior hip and she was advised that her pain complaint appears to be most consistent with pain radiating from the right sacroiliac joint. She was offered the option of a right sacroiliac joint injection to help with her low back and hip pain complaints but declined at this time reporting that her pain is intermittent only aggravated by laying down and not brought about by sitting or by walking. Plan to consider possible sacroiliac joint injection in the future if needed and also possible lumbar epidural steroid injections or lumbar branch blocks if needed to help with her focal low back pain complaints. Patient was advised based upon the results of her CT of lumbar spine at this clinic would recommend in the future consultation with a spine surgeon to discuss surgical treatment options for her spondylolysis and patient reports she would like to defer on option of a surgical consult at this time. Patient was encouraged to seek consultation spine surgeon on an outpatient basis in the future than Patient reports her current medication regimen is working well to help control her pain and she declined making any changes to her medications at this time. Thank you for this consultation. Clinical Quality Measures DVT/VTE Risk/Contraindication: Risk Factor Score Per Nursin RFS Level Per Nursing on Admit: 4+=Very High PATRICIA MCINTOSH MD May 13, 2016 13:11
--- NOTE | 2016-05-13 16:08 | Physical Therapy Daily Note ---
PT Daily Note-Current Subjective Pt is supine in bed with head raised upon arrival. Pt reports needing to use BSC before start of tx. Pt agrees to PT. Pain Numeric Pain Scale: 0-No Pain Location: No Pain Reported Comment: Pt reports no pain unless supine with bed flat. Mental Status Patient Orientation: Person, Place, Time, Situation Transfers Functional [place] Measure 0=Not Assessed/NA 4=Minimal Assistance 1=Total Assistance 5=Supervision or Setup 2=Maximal Assistance 6=Modified [place] 3=Moderate Assistance 7=Complete IndependenceIRFPAI Quality Coding Scale 6 Independent with activity with or without an assistive device 5 Patient requires set up or clean up by helper. Patient completes activity by themselves 4 Supervision or touching assist (CGA). [place] provide cues , steadying assist 3 The helper provides less than half the effort to complete the activity 2 The helper provides more than half the effort to complete the activity 1 Dependent. The helper does all the effort to complete an activity 7 Patient refused to complete or attempt activity 9 The patient did not perform the activity before the current illness or injury 88 Not attempted due to Medical conditions or safety concerns Transfers (B, C, W/C) (FIM): 1 Scootin Rollin Roll Left to Right (QC): 1 Supine to/from Sit: 1 Sit to/from Stand: 1 Sit to Lying (QC): 1 Sit to Stand (QC): 1 Chair/Vui-vr-Pruja Xfer(QC): 1 Bed to/from Chair: 1 Weight Bearing Weight Bearing Restriction: Full Weight Bearing Location Restriction: LE Bilateral Gait Training Pt is not able to ambulate at this time. Wheelchair Training Does the Pt Use a Wheelchair?: Yes Wheelchair (FIM): 5 Wheelchair Distance: [phone] ft Distance: 125' Wheelchair Level of Assist: 5 Wheel 50 ft with 2 turns (QC): 5 Type of Wheelchair: Manual Exercises Standing: Sit to Stand (3 reps standing for approx. 30 sec) Standing Reps: 3 Treatments Pt transfers from bed to BSC via sit to stand lift. After finishing, pt is transferred from BSC to W/C via lift. At this time, Dr Freire is present and visits with pt so PT steps out for 's visit. After visit, pt then propelled W /C to Therapy Gym to attempt stands. Pt stands at //bars at Max A for 3 reps, standing approx. 30 sec each time. Pt reports pain of 3/10 first attempt then increases to 5-6/10 for next two attempts. Pain is in BLE while standing but none at rest. Pt then propels back to room. Pt is transferred back to supine in bed via sit to stand lift. Pt is left with all needs met at end of tx. Assessment Current Status: Fair Progress Pt continues to need sit to stand lift to transfer. Pt is making progress with standing at //bars easier. Pt still has pain the more she stands/puts weight on BLE. PT Short Term Goals Short Term Goals Time Frame: May 13, 2016 Wheelchair Distance: 150' PT Alf Goals Fire Patroller Goals PT Alf Goals Time Frame: May 27, 2016 Transfers (B,C,W/C) (FIM): 3 Sit to Lying (QC): 4 Lying-Sitting on Side/Bed(QC): 4 Sit to Stand (QC): 2 Rollin Roll Left to Right (QC): 4 Chair/Aar-ne-Ygdrc Xfer(QC): 2 Car Transfer (QC): 88 Wheelchair (FIM): 6 Distance: 200' Wheel 50 feet with 2 turns (QC: 6 PT Plan Problem List Problem List: Activity Tolerance, Functional Strength, Balance, Gait, Transfer , Bed Mobility, ROM Treatment/Plan Treatment Plan: Continue Plan of Care Treatment Plan: Bed Mobility, Education, Functional Activity Carol, Functional Strength, Group Therapy, Gait, Safety, Therapeutic Exercise, Transfers Treatment Duration: May 27, 2016 Visits Per Week: 10-11 Minutes/Day (M-F): 60-90 Minutes/Day (Sat/Herman): 15-30 Safety Risks/Education Patient Education: Transfer Techniques, Correct Positioning, Safety Issues Teaching Recipient: Patient Teaching Methods: Discussion Response to Teaching: Verbalize Understanding Time/GCodes Time In: 1245 Time Out: 1330 Total Billed Treatment Time: 45 Total Billed Treatment visit, FA X2 (30m) & EX (15m) ARACELIS TAI PTA May 13, 2016 16:08
[2016-05-13 17:35] VITALS: BP 179/78
[2016-05-13] MEDS: ATORVASTATIN 10 MG (LIPITOR) TABLET PO SCH (20:05)
[2016-05-14] MEDS: inSUlin ASPART (NovoLOG) 1 UNIT/0.01 ML (CHARGE PER UNIT) SC SCH ×4 (05:52→21:00)
[2016-05-14 05:53] VITALS: BP 152/65
[2016-05-14] MEDS: inSUlin ASPART (NovoLOG) 1 UNIT/0.01 ML (CHARGE PER UNIT) SQ SCH ×3 (06:00→18:24)
[2016-05-14] MEDS: PIOGLITAZONE 30MG (ACTOS) TAB PO SCH (06:31)
[2016-05-14] MEDS: LEVOTHYROXINE 150 MCG (LEVOTHROID) TAB PO SCH (06:31)
[2016-05-14] MEDS: DOXYCYCLINE 100 MG (VIBRAMYCIN) TABLET PO SCH ×2 (06:31→17:32)
[2016-05-14] MEDS: GLIMEPIRIDE 2 MG (AMARYL) TAB PO SCH (06:31)
[2016-05-14] MEDS: inSUlin NPH (NovoLIN N) 1 UNIT/0.01 ML (CHARGE PER UNIT) SQ SCH (06:32)
[2016-05-14] MEDS: meTOproloL SUCCINATE 50 MG (TOPROL XL) TAB PO SCH (08:25)
[2016-05-14] MEDS: VERAPAMIL SR 240 MG (CALAN SR) TAB PO SCH (08:25)
--- NOTE | 2016-05-14 08:30 | Progress Note (SOAP) ---
Subjective Subjective/Events-last exam patient feeling good this morning. Patient's cultures showed 3 organisms. Patient put on 2 antibiotics. Patient seen pain management yesterday. Patient does not want injection at this time. Patient's feels that is improving Objective Exam Vital Signs Date Time Temp Pulse Resp B/P Pulse Ox O2 Delivery O2 Flow Rate FiO2 05/14/16 05:53 97.5 74 18 152/65 96 Room Air 05/13/16 20:08 Room Air 05/13/16 17:35 96.5 68 18 179/78 99 Room Air 05/13/16 09:00 Room Air I & O 05/14/16 07:00 Intake Total 1770 ml Balance 1770 ml Capillary Refill : General Appearance: No Apparent Distress WD/WN Results Lab Laboratory Tests 05/13/16 10:50: Glucometer 104 05/13/16 15:59: Glucometer 175H 05/13/16 21:16: Glucometer 122H 05/14/16 05:51: Glucometer 92 Microbiology 05/11/16 Gram Stain - Final, Resulted 05/11/16 Wound Culture - Preliminary, Resulted Staphylococcus Aureus Pseudomonas Aeruginosa Pseudomonas [place] Assessment/Plan Assessment/Plan Assess & Plan/Chief Complaint pain in the left thigh causing difficulty in getting around better Postpolio syndrome. Ambulatory dysfunction. Diabetes. Hypothyroid. Hypertension. Chronic renal insufficiency area. . 05/08/16. Post polio syndrome. Ambulatory dysfunction. Diabetes. Hypothyroid. Hypertension put on Toprol. Chronic renal sufficiency. . 05/11/16. Postpolio syndrome. Ambulatory dysfunction. Diabetes. Hypothyroid. Hypertension.. . 05/12/16. Postpolio syndrome. Ambulatory dysfunction. Diabetes. Hypothyroid. Hypertension. Still having pain in the left thigh when he tries to stand up. . 05/13/16. Pain in left thigh back. Hypertension. Diabetes. Hypothyroid. Increased the Toprol. Consult with pain management. . 05/14/16. Pain in left thigh. Patient seen by pain management. Hypertension. Has improved since yesterday. Diabetes. Culture shows 3 organisms. Patient put on 2 antibiotics to cover them Diagnosis/Problems: Clinical Quality Measures DVT/VTE Risk/Contraindication: Risk Factor Score Per Nursin RFS Level Per Nursing on Admit: 4+=Very High ERASTO TRAMMELL DO May 14, 2016 08:30
--- NOTE | 2016-05-14 08:31 | Occupational Ther Daily Note ---
OT Current Status-Daily Note Subjective Pt alert, sitting on EOB. Pt agreed to therapy. No c/o pain. Mental Status/Objective Patient Orientation: Person, Place, Time, Situation Functional [place] Measure 0=Not Assessed/NA 4=Minimal Assistance 1=Total Assistance 5=Supervision or Setup 2=Maximal Assistance 6=Modified [place] 3=Moderate Assistance 7=Complete [place] Attachments: IV ADL-Treatment Functional [place] Measure 0=Not Assessed/NA 4=Minimal Assistance 1=Total Assistance 5=Supervision or Setup 2=Maximal Assistance 6=Modified [place] 3=Moderate Assistance 7=Complete IndependenceIRFPAI Quality Coding Scale 6 Independent with activity with or without an assistive device 5 Patient requires set up or clean up by helper. Patient completes activity by themselves 4 Supervision or touching assist (CGA). [place] provide cues , steadying assist 3 The helper provides less than half the effort to complete the activity 2 The helper provides more than half the effort to complete the activity 1 Dependent. The helper does all the effort to complete an activity 7 Patient refused to complete or attempt activity 9 The patient did not perform the activity before the current illness or injury 88 Not attempted due to Medical conditions or safety concerns Grooming (FIM): 6 (Pt maneuvered w/c into bathroom to sit at sink and complete own grooming.) Oral Hygiene (QC): 6 (Sitting at sink, pt is able to complete oral hygiene) Pt's lower leg swelling appears to have decreased slightly. OT rewrapped L LE, R LE dressing/wraps appeared to be intact. Other Treatment Pt transported to therapy gym via w/c. Arm bike completed duration 15 min at 25 lynn resistance without breaks to increase strength and activity tolerance for daily functional tasks. UE dowel farhat exercises with 2# wt attached completed 3 sets 10 reps, 4 exercises. Then UE gross motor exercises against gravity 1x with each arm. Resistive hand exercises completed with clothespins 2x's each hand. Pt maneuvered w/c back to room. After therapy, pt sitting in w /c with call light/phone in reach. All needs met in room. OT Short Term Goals Short Term Goals Time Frame: May 13, 2016 Lower Body Dressing(FIM): 4 Toileting(FIM): 3 Toilet/Commode Transfer(FIM): 2 Additional Short Term Goals: 2-Verbalize Understanding, 3-ImproveStrength/Carol 1=Demonstrate adherence to instructed precautions during ADL tasks. 2=Patient will verbalize/demonstrate understanding of assistive devices/ modifications for ADL. 3=Patient will improve strength/tolerance for activity to enable patient to perform ADL's. OT Barrel Filler Head Goals Longterm Goals Time Frame: May 27, 2016 1=Demonstrate adherence to instructed precautions during ADL tasks. 2=Patient will verbalize/demonstrate understanding of assistive devices/ modifications for ADL. 3=Patient will improve strength/tolerance for activity to enable patient to perform ADL's. OT Education/Plan Problem List/Assessment Pt would benefit from skilled OT to increase her independence in basic transfers and self care to allow her to safely return to her home to live independently and decrease caregiver burden Discharge Recommendations Plan/Recommendations: Continue POC Treatment Plan/Plan of Care Patient would benefit from OT for education, treatment and training to promote independence in ADL's, mobility, safety and/or upper extremity function for ADL' s. Plan of Care: ADL Retraining, Functional Mobility, Group Exercise/Act as Ind ( education, exercise, activity tolerance, functional activities, socialization), UE Funct Exercise/Act, UE Neuromus Re-Ed/Coord, W/C Management Training Treatment Duration: May 27, 2016 Visits Per Week: 10-11 Minutes/Day (M-F): 75-90 Minutes/Day (Sat/Herman): 15-30 Agreement: Yes Rehab Potential: Good Time/GCodes Start Time: 07:00 Stop Time: 08:30 Total Time Billed (hr/min): 90 Billed Treatment Time 1 visit-FA 3 (40 min) EX 3 (50 min) STEPHANIE WILLOUGHBY May 14, 2016 08:30
[2016-05-14] MEDS: MICONAZOLE 2% POWDER (DESENEX AF) 90 GM TOP SCH ×2 (08:36→20:28)
[2016-05-14] MEDS: CIPROFLOXACIN 500 MG (CIPRO) TABLET PO SCH ×2 (09:01→20:28)
--- NOTE | 2016-05-14 09:43 | Physical Therapy Daily Note ---
PT Daily Note-Current Subjective Patient in wheelchair pre tx, agrees to PT, will be trying a sliding board transfer. Patient has no pain at rest, just with bearing weight on the left leg. Appearance Patient in wheelchair post tx at bedside, has nurse call, phone, tray, all needs met. Mental Status Patient Orientation: Normal For Age Transfers Functional [place] Measure 0=Not Assessed/NA 4=Minimal Assistance 1=Total Assistance 5=Supervision or Setup 2=Maximal Assistance 6=Modified [place] 3=Moderate Assistance 7=Complete IndependenceIRFPAI Quality Coding Scale 6 Independent with activity with or without an assistive device 5 Patient requires set up or clean up by helper. Patient completes activity by themselves 4 Supervision or touching assist (CGA). [place] provide cues , steadying assist 3 The helper provides less than half the effort to complete the activity 2 The helper provides more than half the effort to complete the activity 1 Dependent. The helper does all the effort to complete an activity 7 Patient refused to complete or attempt activity 9 The patient did not perform the activity before the current illness or injury 88 Not attempted due to Medical conditions or safety concerns Transfers (B, C, W/C) (FIM): 1 Sit to/from Stand: 1 Bed to/from Chair: 1 Patient uses a sit to stand machine for transfers, she performed a sliding board transfer with mod assist of 2, she needs assist to get the board beneath her and to get it out and she has a very difficult time with the transfer but she was able to do it without assist to slide however the transfer took about 10 min of sliding Wheelchair Training Wheelchair (FIM): 5 Distance: 150'x2 Wheelchair Level of Assist: 5 Type of Wheelchair: Manual Exercises LAQ left side for 5 min, patient practiced 4 sets of mini squats in the sit to stand machine for as long as she could each time, she also stood x6 at the edge of an elevated therapy mat using her crutches, she was able to stand for about 20-30 seconds each time, she is not able to get her crutches beneath her arms yet she just pushes from the handgrips Treatments functional strengthening, transfers, standing, wheelchair mobility Assessment Current Status: Fair Progress patient was able to perform a sliding board transfer but it is not something she will be able to perform on a functional basis at home PT Short Term Goals Short Term Goals Time Frame: May 13, 2016 Wheelchair Distance: 125' PT Senior Living Goals Senior Living Goals PT Qa Consultant Goals Time Frame: May 27, 2016 Transfers (B,C,W/C) (FIM): 3 Sit to Lying (QC): 4 Lying-Sitting on Side/Bed(QC): 4 Sit to Stand (QC): 2 Rollin Roll Left to Right (QC): 4 Chair/Ddf-ko-Scnkt Xfer(QC): 2 Car Transfer (QC): 88 Wheelchair (FIM): 6 Distance: 200' Wheel 50 feet with 2 turns (QC: 6 PT Plan Problem List Problem List: Activity Tolerance, Functional Strength, Safety, Balance, Gait, Transfer, Bed Mobility, ROM Treatment/Plan Treatment Plan: Continue Plan of Care Treatment Plan: Bed Mobility, Education, Functional Activity Carol, Functional Strength, Group Therapy, Gait, Safety, Therapeutic Exercise, Transfers Treatment Duration: May 27, 2016 Visits Per Week: 10-11 Minutes/Day (M-F): 60-90 Minutes/Day (Sat/Herman): 15-30 Safety Risks/Education Patient Education: Transfer Techniques, Correct Positioning, W/C Management, Safety Issues Teaching Recipient: Patient Teaching Methods: Demonstration, Discussion Response to Teaching: Reinforcement Needed Time/GCodes Time In: 845 Time Out: 945 Total Billed Treatment Time: 60 Total Billed Treatment 1 visit EX 15 min [facility] 15 min FA 30 min LENORE EGAN PT May 14, 2016 09:43
--- NOTE | 2016-05-14 10:54 | PM & R (SOAP) Progress Note ---
Subjective Subjective/Events-last exam Patient was seen in her room this AM Discussed case with RN Appreciate therapy notes and DR Burks consult and recs Patient reports decreased pain in Left calf with WB today PT now practicing Sliding board transfers with patient Appreciate Dr dunaway snimelda and orders Review of Systems Musculoskeletal: : leg pain Neurological: : Weakness Objective Exam Last Set of Vital Signs Vital Signs Date Time Temp Pulse Resp B/P Pulse Ox O2 Delivery O2 Flow Rate FiO2 05/14/16 05:53 97.5 74 18 152/65 96 Room Air Capillary Refill : I&O Intake and Output 05/14/16 00:00 Intake Total 1320 ml Balance 1320 ml Intake Oral 1320 ml # Voids 6 General: Alert, No Acute Distress HEENT: Atraumatic Neck: Supple Lungs: Normal Air Movement Heart: Regular Rate Abdomen: Soft Extremities: Other (chronic venousstasis with legs wrapped some weeping noted by Staff) Skin: Other (R lateral calf --- 0.8 x 0.7 x 0.1 cm, 100% regenerating tissue, partial thickness.) Neuro: Other (Weaknees both lower extremities Rt >lleft with tenderness left post thigh) Results Lab Laboratory Tests 05/11/16 11:40: Glucometer 91 05/11/16 16:06: Glucometer 92 05/11/16 21:39: Glucometer 89 05/12/16 05:48: Glucometer 106 05/12/16 11:01: Glucometer 140H 05/12/16 15:55: Glucometer 160H 05/12/16 20:18: Glucometer 138H 05/13/16 05:29: Glucometer 121H 05/13/16 10:50: Glucometer 104 05/13/16 15:59: Glucometer 175H 05/13/16 21:16: Glucometer 122H 05/14/16 05:51: Glucometer 92 Microbiology 05/11/16 Gram Stain - Final, Resulted 05/11/16 Wound Culture - Preliminary, Resulted Staphylococcus Aureus Pseudomonas Aeruginosa Pseudomonas [place] Assessment/Plan Assessment Post-polio syndrome Fall with left leg pain IDDM Morbid obesity Chronic venous stasis BLES wraps in place RN reports weeping DR Johnson has seen and Wound culture noted-antibiotics adjusted Contact precautions Lumbar spinal stenosis- Conservative care. Plan Continue PT/OT ST has signed off Blood pressure elevated-DR Dunaway has seen-imroved Adjust meds as needed Continue Imsha wraps-DR Johnson following F/U with culture myqiktud-nsyr-Dsnvyyqarll adjusted by Dr dunaway Patient reports that PCP is DR Hawkins in [facility] Team Conference held yesterday--SEE REPORT FOR FULL FUNCTIONAL UPDATE AND poc AND ELOS Reimage as per above-done Continue with Sliding board transfer training Pain Management NILDA DYER MD May 14, 2016 10:54
--- NOTE | 2016-05-14 13:29 | Physical Therapy Daily Note ---
PT Daily Note-Current Subjective Patient in wheelchair pre tx, agrees to PT, no complaints of pain. Appearance Patient in wheelchair at bedside post tx, has nurse call, phone, tray, all needs met. Mental Status Patient Orientation: Normal For Age Transfers Functional [place] Measure 0=Not Assessed/NA 4=Minimal Assistance 1=Total Assistance 5=Supervision or Setup 2=Maximal Assistance 6=Modified [place] 3=Moderate Assistance 7=Complete IndependenceIRFPAI Quality Coding Scale 6 Independent with activity with or without an assistive device 5 Patient requires set up or clean up by helper. Patient completes activity by themselves 4 Supervision or touching assist (CGA). [place] provide cues , steadying assist 3 The helper provides less than half the effort to complete the activity 2 The helper provides more than half the effort to complete the activity 1 Dependent. The helper does all the effort to complete an activity 7 Patient refused to complete or attempt activity 9 The patient did not perform the activity before the current illness or injury 88 Not attempted due to Medical conditions or safety concerns Sit to/from Stand: 3 Wheelchair Training Wheelchair (FIM): 5 Distance: 150'x2 Wheelchair Level of Assist: 5 Type of Wheelchair: Manual Exercises Seated Therapy Exercises: Ankle pumps, Long arc quads, Hip flexion Seated Reps: 20 Treatments wheelchair mobility, patient stood in the parallel bars x3 with less assist today, she also performed bilateral lower extremity exercises Assessment Current Status: Fair Progress better sit to stand, still pain in left leg when bearing weight PT Short Term Goals Short Term Goals Time Frame: May 13, 2016 Wheelchair Distance: 150'x2 PT Skilled Nursing Goals Product Distribution Specialist Goals PT Product Distribution Specialist Goals Time Frame: May 27, 2016 Transfers (B,C,W/C) (FIM): 3 Sit to Lying (QC): 4 Lying-Sitting on Side/Bed(QC): 4 Sit to Stand (QC): 2 Rollin Roll Left to Right (QC): 4 Chair/Zbs-nz-Znkql Xfer(QC): 2 Car Transfer (QC): 88 Wheelchair (FIM): 6 Distance: 200' Wheel 50 feet with 2 turns (QC: 6 PT Plan Problem List Problem List: Activity Tolerance, Functional Strength, Safety, Balance, Gait, Transfer, Bed Mobility, ROM Treatment/Plan Treatment Plan: Continue Plan of Care Treatment Plan: Bed Mobility, Education, Functional Activity Carol, Functional Strength, Group Therapy, Gait, Safety, Therapeutic Exercise, Transfers Treatment Duration: May 27, 2016 Visits Per Week: 10-11 Minutes/Day (M-F): 60-90 Minutes/Day (Sat/Herman): 15-30 Safety Risks/Education Patient Education: Transfer Techniques, Correct Positioning, W/C Management, Safety Issues Teaching Recipient: Patient Teaching Methods: Demonstration, Discussion Response to Teaching: Reinforcement Needed Time/GCodes Time In: 1300 Time Out: 1330 Total Billed Treatment Time: 30 Total Billed Treatment 1 visit [facility] 10 min EX 20 min LENORE EGAN PT May 14, 2016 13:29
[2016-05-14 18:59] VITALS: BP 182/72
[2016-05-14] MEDS: ATORVASTATIN 10 MG (LIPITOR) TABLET PO SCH (20:28)
[2016-05-15 05:50] VITALS: BP 155/65
[2016-05-15] MEDS: inSUlin ASPART (NovoLOG) 1 UNIT/0.01 ML (CHARGE PER UNIT) SC SCH ×4 (06:00→20:33)
[2016-05-15] MEDS: LEVOTHYROXINE 150 MCG (LEVOTHROID) TAB PO SCH (06:22)
[2016-05-15] MEDS: PIOGLITAZONE 30MG (ACTOS) TAB PO SCH (06:22)
[2016-05-15] MEDS: DOXYCYCLINE 100 MG (VIBRAMYCIN) TABLET PO SCH ×2 (06:23→17:52)
[2016-05-15] MEDS: GLIMEPIRIDE 2 MG (AMARYL) TAB PO SCH (06:23)
[2016-05-15] MEDS: inSUlin ASPART (NovoLOG) 1 UNIT/0.01 ML (CHARGE PER UNIT) SQ SCH ×3 (06:23→17:52)
[2016-05-15] MEDS: inSUlin NPH (NovoLIN N) 1 UNIT/0.01 ML (CHARGE PER UNIT) SQ SCH (06:24)
--- NOTE | 2016-05-15 08:03 | PM & R (SOAP) Progress Note ---
Subjective Subjective/Events-last exam Patient was seen in her room this AM Slowly improving with therapies HTN better controlled with adjustment in Toprol Appreciate DR Mejia notes and orders Patient on 2 antibiotics for wound drainage culture reports Patient had bathe with OT using Bariatric shower chair to shower room Objective Exam Last Set of Vital Signs Vital Signs Date Time Temp Pulse Resp B/P Pulse Ox O2 Delivery O2 Flow Rate FiO2 05/15/16 05:50 98.3 69 20 155/65 97 Room Air Capillary Refill : I&O Intake and Output 05/15/16 00:00 Intake Total 1580 ml Balance 1580 ml Intake Oral 1580 ml # Voids 11 # Bowel Movements 1 General: Alert, No Acute Distress HEENT: Atraumatic Neck: Supple Lungs: Normal Air Movement Heart: Regular Rate Abdomen: Soft Extremities: Other (chronic venousstasis with legs wrapped some weeping noted by Staff) Skin: Other (R lateral calf --- 0.8 x 0.7 x 0.1 cm, 100% regenerating tissue, partial thickness.) Neuro: Other (Weaknees both lower extremities Rt >lleft with tenderness left post thigh) Results Lab Laboratory Tests 05/12/16 11:01: Glucometer 140H 05/12/16 15:55: Glucometer 160H 05/12/16 20:18: Glucometer 138H 05/13/16 05:29: Glucometer 121H 05/13/16 10:50: Glucometer 104 05/13/16 15:59: Glucometer 175H 05/13/16 21:16: Glucometer 122H 05/14/16 05:51: Glucometer 92 05/14/16 12:13: Glucometer 108 05/14/16 15:55: Glucometer 140H 05/14/16 20:31: Glucometer 131H 05/15/16 06:05: Glucometer 89 Microbiology 05/11/16 Gram Stain - Final, Resulted 05/11/16 Wound Culture - Preliminary, Resulted Staphylococcus Aureus Pseudomonas Aeruginosa Pseudomonas [place] Assessment/Plan Assessment Post-polio syndrome Fall with left leg pain IDDM Morbid obesity Chronic venous stasis BLES wraps in place RN reports weeping DR Johnson has seen and Wound culture noted-antibiotics adjusted Stahe 2 venoustasis wound RT lateral thigh DR Johnson managing Contact precautions Lumbar spinal stenosis- Conservative care. Plan Continue PT/OT/Pain Management/Wound care ST has signed off Blood pressure elevated-DR Dunaway has seen-imroved Adjust meds as needed Continue Misha wraps-DR Johnson following F/U with culture roejeuir-uizu-Zdskrqznvzs adjusted by Dr dunaway Patient reports that PCP is DR Hawkins in [facility] Team Conference held yesterday--SEE REPORT FOR FULL FUNCTIONAL UPDATE AND poc AND ELOS Reimage as per above-done Continue with Sliding board transfer training NILDA DYER MD May 15, 2016 08:03
--- NOTE | 2016-05-15 08:19 | Progress Note (SOAP) ---
Subjective Subjective/Events-last exam neuromuscular disorder. Postpolio. Patient has shown some improvement. Patient needs further improvement.. Patient really got up yesterday Objective Exam Vital Signs Date Time Temp Pulse Resp B/P Pulse Ox O2 Delivery O2 Flow Rate FiO2 05/15/16 05:50 98.3 69 20 155/65 97 Room Air 05/14/16 20:00 Room Air 05/14/16 18:59 97.0 65 16 182/72 97 Room Air 05/14/16 08:22 Room Air I & O 05/15/16 07:00 Intake Total 1670 ml Balance 1670 ml Capillary Refill : General Appearance: No Apparent Distress WD/WN Results Lab Laboratory Tests 05/14/16 12:13: Glucometer 108 05/14/16 15:55: Glucometer 140H 05/14/16 20:31: Glucometer 131H 05/15/16 06:05: Glucometer 89 Microbiology 05/11/16 Gram Stain - Final, Resulted 05/11/16 Wound Culture - Preliminary, Resulted Staphylococcus Aureus Pseudomonas Aeruginosa Pseudomonas [place] Assessment/Plan Assessment/Plan Assess & Plan/Chief Complaint pain in the left thigh causing difficulty in getting around better Postpolio syndrome. Ambulatory dysfunction. Diabetes. Hypothyroid. Hypertension. Chronic renal insufficiency area. . 05/08/16. Post polio syndrome. Ambulatory dysfunction. Diabetes. Hypothyroid. Hypertension put on Toprol. Chronic renal sufficiency. . 05/11/16. Postpolio syndrome. Ambulatory dysfunction. Diabetes. Hypothyroid. Hypertension.. . 05/12/16. Postpolio syndrome. Ambulatory dysfunction. Diabetes. Hypothyroid. Hypertension. Still having pain in the left thigh when he tries to stand up. . 05/13/16. Pain in left thigh back. Hypertension. Diabetes. Hypothyroid. Increased the Toprol. Consult with pain management. . 05/14/16. Pain in left thigh. Patient seen by pain management. Hypertension. Has improved since yesterday. Diabetes. Culture shows 3 organisms. Patient put on 2 antibiotics to cover them. . 05/15/16. Pain in left thigh causing difficulty in getting around. Postpolio syndrome. Ambulatory dysfunction. Diabetes. Patient positive. Patient did get up a little yesterday Diagnosis/Problems: Clinical Quality Measures DVT/VTE Risk/Contraindication: Risk Factor Score Per Nursin RFS Level Per Nursing on Admit: 4+=Very High ERASTO TRAMMELL DO May 15, 2016 08:19
[2016-05-15] MEDS: VERAPAMIL SR 240 MG (CALAN SR) TAB PO SCH (08:44)
[2016-05-15] MEDS: CIPROFLOXACIN 500 MG (CIPRO) TABLET PO SCH ×2 (08:44→20:33)
[2016-05-15] MEDS: MICONAZOLE 2% POWDER (DESENEX AF) 90 GM TOP SCH ×2 (08:44→20:34)
[2016-05-15] MEDS: meTOproloL SUCCINATE 50 MG (TOPROL XL) TAB PO SCH (08:44)
--- NOTE | 2016-05-15 10:02 | Physical Therapy Daily Note ---
PT Daily Note-Current Subjective Patient in wheelchair at bedside pre tx, agrees to PT. No complaints of pain. Appearance Patient in wheelchair post tx at bedside with nurse call, phone, tray, all needs met. Mental Status Patient Orientation: Normal For Age Transfers Functional [place] Measure 0=Not Assessed/NA 4=Minimal Assistance 1=Total Assistance 5=Supervision or Setup 2=Maximal Assistance 6=Modified [place] 3=Moderate Assistance 7=Complete IndependenceIRFPAI Quality Coding Scale 6 Independent with activity with or without an assistive device 5 Patient requires set up or clean up by helper. Patient completes activity by themselves 4 Supervision or touching assist (CGA). [place] provide cues , steadying assist 3 The helper provides less than half the effort to complete the activity 2 The helper provides more than half the effort to complete the activity 1 Dependent. The helper does all the effort to complete an activity 7 Patient refused to complete or attempt activity 9 The patient did not perform the activity before the current illness or injury 88 Not attempted due to Medical conditions or safety concerns Transfers (B, C, W/C) (FIM): 1 Sit to/from Stand: 1 Bed to/from Chair: 1 Patient needs a sit to stand machine to transfer from her wheelchair here, however, patient was able to perform a stand pivot transfer three times using her axillary crutches from the therapy table (at a level she says is about the same as what she has at home), transferring to the left side. She stands leaning forward and using the hand electrical logging operator on the crutches, pushes up and after she is standing she puts the crutches in place and then performs the transfer. Wheelchair Training Wheelchair (FIM): 5 Distance: 150'x2 Wheelchair Level of Assist: 5 Type of Wheelchair: Manual slow, turning is very difficult but she does not need assist with it Exercises Seated Therapy Exercises: Ankle pumps, Hip flexion Seated Reps: 20 LAQ left side for 5 min Treatments transfers, functional strengthening, wheelchair mobility Assessment Current Status: Fair Progress improved transfers, patient states she is going to try to have her son bring her power chair and van to the hospital on wednesday so she has something appropriate to discharge in PT Short Term Goals Short Term Goals Time Frame: May 13, 2016 Wheelchair Distance: 150'x2 PT Plastics Tooling Engineer Goals [facility] Goals PT Plastics Tooling Engineer Goals Time Frame: May 27, 2016 Transfers (B,C,W/C) (FIM): 3 Sit to Lying (QC): 4 Lying-Sitting on Side/Bed(QC): 4 Sit to Stand (QC): 2 Rollin Roll Left to Right (QC): 4 Chair/Oqf-wx-Txitr Xfer(QC): 2 Car Transfer (QC): 88 Wheelchair (FIM): 6 Distance: 200' Wheel 50 feet with 2 turns (QC: 6 PT Plan Problem List Problem List: Activity Tolerance, Functional Strength, Safety, Balance, Gait, Transfer, Bed Mobility, ROM Treatment/Plan Treatment Plan: Continue Plan of Care Treatment Plan: Bed Mobility, Education, Functional Activity Carol, Functional Strength, Group Therapy, Gait, Safety, Therapeutic Exercise, Transfers Treatment Duration: May 27, 2016 Visits Per Week: 10-11 Minutes/Day (M-F): 60-90 Minutes/Day (Sat/Herman): 15-30 Safety Risks/Education Patient Education: Transfer Techniques, Correct Positioning, W/C Management, Safety Issues Teaching Recipient: Patient Teaching Methods: Demonstration, Discussion Response to Teaching: Reinforcement Needed Time/GCodes Time In: 900 Time Out: 1000 Total Billed Treatment Time: 60 Total Billed Treatment 1 visit [facility] 15 min EX 15 min FA 30 min LENORE EGAN PT May 15, 2016 10:02
--- NOTE | 2016-05-15 10:36 | Occupational Ther Daily Note ---
OT Current Status-Daily Note Subjective Pt alert, lying in bed. Pt agreed to therapy. Pt c/o pain on the anterior of L shldr, did not rate. Mental Status/Objective Patient Orientation: Person, Place, Time, Situation Functional [place] Measure 0=Not Assessed/NA 4=Minimal Assistance 1=Total Assistance 5=Supervision or Setup 2=Maximal Assistance 6=Modified [place] 3=Moderate Assistance 7=Complete [place] ADL-Treatment Functional [place] Measure 0=Not Assessed/NA 4=Minimal Assistance 1=Total Assistance 5=Supervision or Setup 2=Maximal Assistance 6=Modified [place] 3=Moderate Assistance 7=Complete IndependenceIRFPAI Quality Coding Scale 6 Independent with activity with or without an assistive device 5 Patient requires set up or clean up by helper. Patient completes activity by themselves 4 Supervision or touching assist (CGA). [place] provide cues , steadying assist 3 The helper provides less than half the effort to complete the activity 2 The helper provides more than half the effort to complete the activity 1 Dependent. The helper does all the effort to complete an activity 7 Patient refused to complete or attempt activity 9 The patient did not perform the activity before the current illness or injury 88 Not attempted due to Medical conditions or safety concerns Grooming (FIM): 6 (At w/c level, pt able to complete own grooming skills.) Bathing (FIM): 4 (Sitting in shower chair, pt is able to complete own bathing using long handle sponge for lower legs. Assist to dry buttocks and back of lower legs.) Upper Body (FIM): 5 (After setup, pt is able to dress upper body by self.) Lower Body Dressing (FIM): 4 (After set up, pt is able to don/doff skirt over head. Pt requires assistance to don/doff socks.) Pt transferred to shower chair with sit to stand lift then to w/c. Pt is able to maneuver w/c into bathroom and around room to get to sink or easy to reach drawers. Other Treatment Pt maneuvered w/c to therapy gym. Completed arm bike 15 min at 25 lynn resistance to increase strength and activity tolerance for daily functional tasks. Pt then was transported back to room via w/c. After therapy, pt sitting in w/c with call light/phone in reach. All needs met in room. OT Short Term Goals Short Term Goals Time Frame: May 13, 2016 Lower Body Dressing(FIM): 4 Toileting(FIM): 3 Toilet/Commode Transfer(FIM): 2 Additional Short Term Goals: 2-Verbalize Understanding, 3-ImproveStrength/Carol 1=Demonstrate adherence to instructed precautions during ADL tasks. 2=Patient will verbalize/demonstrate understanding of assistive devices/ modifications for ADL. 3=Patient will improve strength/tolerance for activity to enable patient to perform ADL's. OT Nursing Home Goals Nursing Home Goals Time Frame: May 27, 2016 1=Demonstrate adherence to instructed precautions during ADL tasks. 2=Patient will verbalize/demonstrate understanding of assistive devices/ modifications for ADL. 3=Patient will improve strength/tolerance for activity to enable patient to perform ADL's. OT Education/Plan Problem List/Assessment Pt would benefit from skilled OT to increase her independence in basic transfers and self care to allow her to safely return to her home to live independently and decrease caregiver burden Discharge Recommendations Plan/Recommendations: Continue POC Treatment Plan/Plan of Care Patient would benefit from OT for education, treatment and training to promote independence in ADL's, mobility, safety and/or upper extremity function for ADL' s. Plan of Care: ADL Retraining, Functional Mobility, Group Exercise/Act as Ind ( education, exercise, activity tolerance, functional activities, socialization), UE Funct Exercise/Act, UE Neuromus Re-Ed/Coord, W/C Management Training Treatment Duration: May 27, 2016 Visits Per Week: 10-11 Minutes/Day (M-F): 75-90 Minutes/Day (Sat/Herman): 15-30 Agreement: Yes Rehab Potential: Good Time/GCodes Start Time: 07:00 Stop Time: 08:30 Total Time Billed (hr/min): 90 Billed Treatment Time 1 visit-ADL 5 (75 min) EX 1 (15 min) STEPHANIE WILLOUGHBY May 15, 2016 10:36
--- NOTE | 2016-05-15 14:03 | Physical Therapy Daily Note ---
PT Daily Note-Current Subjective Patient in wheelchair pre tx, agrees to PT, would like to try a transfer again using her crutches. Pain Numeric Pain Scale: 0-No Pain Appearance Patient in wheelchair at bedside post tx, has nurse call, phone, tray, all needs met. Mental Status Patient Orientation: Normal For Age Transfers Functional [place] Measure 0=Not Assessed/NA 4=Minimal Assistance 1=Total Assistance 5=Supervision or Setup 2=Maximal Assistance 6=Modified [place] 3=Moderate Assistance 7=Complete IndependenceIRFPAI Quality Coding Scale 6 Independent with activity with or without an assistive device 5 Patient requires set up or clean up by helper. Patient completes activity by themselves 4 Supervision or touching assist (CGA). [place] provide cues , steadying assist 3 The helper provides less than half the effort to complete the activity 2 The helper provides more than half the effort to complete the activity 1 Dependent. The helper does all the effort to complete an activity 7 Patient refused to complete or attempt activity 9 The patient did not perform the activity before the current illness or injury 88 Not attempted due to Medical conditions or safety concerns Transfers (B, C, W/C) (FIM): 1 Sit to/from Stand: 1 Bed to/from Chair: 1 Patient uses a sit to stand machine for transfers usually. Patient was transferred to the therapy mat using the sit to stand, raised to a similar height as what she uses at home. Patient is weaker this afternoon and was only able to make one stand pivot transfer to the left using her crutches, but she did come to a full stand two other times. Wheelchair Training Wheelchair (FIM): 5 Distance: 150' Wheelchair Level of Assist: 5 Type of Wheelchair: Manual slow, turning is very difficult but she does not need assist Treatments wheelchair mobility, transfers, sit to stand, transfer using crutches Assessment Current Status: Fair Progress improving stand pivot transfer PT Short Term Goals Short Term Goals Time Frame: May 13, 2016 Wheelchair Distance: 150'x2 PT Correction Goals Lead Furnace Operator Goals PT Correction Goals Time Frame: May 27, 2016 Transfers (B,C,W/C) (FIM): 3 Sit to Lying (QC): 4 Lying-Sitting on Side/Bed(QC): 4 Sit to Stand (QC): 2 Rollin Roll Left to Right (QC): 4 Chair/Lar-fq-Lywdk Xfer(QC): 2 Car Transfer (QC): 88 Wheelchair (FIM): 6 Distance: 200' Wheel 50 feet with 2 turns (QC: 6 PT Plan Problem List Problem List: Activity Tolerance, Functional Strength, Safety, Balance, Gait, Transfer, Bed Mobility, ROM Treatment/Plan Treatment Plan: Continue Plan of Care Treatment Plan: Bed Mobility, Education, Functional Activity Carol, Functional Strength, Group Therapy, Gait, Safety, Therapeutic Exercise, Transfers Treatment Duration: May 27, 2016 Visits Per Week: 10-11 Minutes/Day (M-F): 60-90 Minutes/Day (Sat/Herman): 15-30 Safety Risks/Education Patient Education: Transfer Techniques, Correct Positioning, W/C Management, Safety Issues Teaching Recipient: Patient Teaching Methods: Demonstration, Discussion Response to Teaching: Reinforcement Needed Time/GCodes Time In: 1330 Time Out: 1400 Total Billed Treatment Time: 30 Total Billed Treatment 1 visit [facility] 10 min FA 20 min LENORE EGAN PT May 15, 2016 14:03
[2016-05-15 18:18] VITALS: BP 161/75
[2016-05-15] MEDS: ATORVASTATIN 10 MG (LIPITOR) TABLET PO SCH (20:33)
[2016-05-16] MEDS: inSUlin ASPART (NovoLOG) 1 UNIT/0.01 ML (CHARGE PER UNIT) SC SCH ×4 (05:56→20:28)
[2016-05-16] MEDS: inSUlin ASPART (NovoLOG) 1 UNIT/0.01 ML (CHARGE PER UNIT) SQ SCH ×3 (05:56→16:59)
[2016-05-16 06:00] VITALS: BP 179/73
[2016-05-16] MEDS: GLIMEPIRIDE 2 MG (AMARYL) TAB PO SCH (06:01)
[2016-05-16] MEDS: PIOGLITAZONE 30MG (ACTOS) TAB PO SCH (06:01)
[2016-05-16] MEDS: LEVOTHYROXINE 150 MCG (LEVOTHROID) TAB PO SCH (06:01)
[2016-05-16] MEDS: DOXYCYCLINE 100 MG (VIBRAMYCIN) TABLET PO SCH ×2 (06:01→16:59)
[2016-05-16] MEDS: inSUlin NPH (NovoLIN N) 1 UNIT/0.01 ML (CHARGE PER UNIT) SQ SCH (06:02)
[2016-05-16] MEDS: CIPROFLOXACIN 500 MG (CIPRO) TABLET PO SCH ×2 (09:20→20:23)
[2016-05-16] MEDS: VERAPAMIL SR 240 MG (CALAN SR) TAB PO SCH (09:20)
[2016-05-16] MEDS: MICONAZOLE 2% POWDER (DESENEX AF) 90 GM TOP SCH ×2 (09:20→20:23)
[2016-05-16] MEDS: meTOproloL SUCCINATE 50 MG (TOPROL XL) TAB PO SCH (09:20)
--- NOTE | 2016-05-16 11:02 | Physical Therapy Daily Note ---
PT Daily Note-Current Subjective Pt agreeable to PT. Very hopeful she can improve enough to go home from here. Reports she feels she turned the corner this week and is improving. Mental Status Patient Orientation: Person, Place, Time, Situation Transfers Functional [place] Measure 0=Not Assessed/NA 4=Minimal Assistance 1=Total Assistance 5=Supervision or Setup 2=Maximal Assistance 6=Modified [place] 3=Moderate Assistance 7=Complete IndependenceIRFPAI Quality Coding Scale 6 Independent with activity with or without an assistive device 5 Patient requires set up or clean up by helper. Patient completes activity by themselves 4 Supervision or touching assist (CGA). [place] provide cues , steadying assist 3 The helper provides less than half the effort to complete the activity 2 The helper provides more than half the effort to complete the activity 1 Dependent. The helper does all the effort to complete an activity 7 Patient refused to complete or attempt activity 9 The patient did not perform the activity before the current illness or injury 88 Not attempted due to Medical conditions or safety concerns Pt requires mod assist to transfer to sit EOB--assisting with both legs. Pt sleeps in a lift recliner at home, so bed mobility is not a focus here. Pt performed SPT with B crutches to her left x 2 reps at a 90 degree angle, only requiring CGA during the transfer--turning and pivoting in the left LE. She then performed a SPT 180 degrees with crutches with CGA. Pt in bed post treatment with mod assist to lift both legs in bed. Pt performed left LE ther ex for AP, QS, GS, hip/knee resisted extension and bridging x 15 reps each. Educated nursing on technique for SPT and had nursing observe the transfer. Educted nursing and pt to continue with performing SPT over the weekend to get on/off the commode or wheelchair to continue to progress LE strength and functional activity tolerance for transfers. Also educated staff and patient that if in doubt about the safety of the transfer to return to using the sit tostand lift. Both voiced understanding. Treatments See above. Transfers and ther ex. Assessment Current Status: Excellent Progress Pt's functional transfers are significantly improving. She is able to perform the SPT with 2 persons present but only needed CGA. Pt does still lack the safety and functional strength for this to be performed alone and lacks functional activity tolerance with concern that as theday wears on and she tires it may be more difficult. However, I feel with continued aggressive therapy she will make good gains. I, too, feel she has turned a corner and has potential to discharge to her home from this facility. PT Short Term Goals Short Term Goals Time Frame: May 13, 2016 Wheelchair Distance: 150' PT Longterm Goals Longterm Goals PT Agent Telegrapher Goals Time Frame: May 27, 2016 Transfers (B,C,W/C) (FIM): 3 Sit to Lying (QC): 4 Lying-Sitting on Side/Bed(QC): 4 Sit to Stand (QC): 2 Rollin Roll Left to Right (QC): 4 Chair/Qdy-iz-Gqoqf Xfer(QC): 2 Car Transfer (QC): 88 Wheelchair (FIM): 6 Distance: 200' Wheel 50 feet with 2 turns (QC: 6 PT Plan Problem List Problem List: Activity Tolerance, Functional Strength, Safety, Transfer Treatment/Plan Treatment Plan: Continue Plan of Care Treatment Plan: Bed Mobility, Education, Functional Activity Carol, Functional Strength, Group Therapy, Gait, Safety, Therapeutic Exercise, Transfers Treatment Duration: May 27, 2016 Visits Per Week: 10-11 Minutes/Day (M-F): 60-90 Minutes/Day (Sat/Herman): 15-30 Safety Risks/Education Patient Education: Transfer Techniques Teaching Recipient: Patient Teaching Methods: Demonstration, Discussion Response to Teaching: Verbalize Understanding, Return Demonstration Discharge Recommendations Plan Pt to continue to perform SPT with nursing throughout the weekend to continue to build strength and endurance for the transfer throughout the day to prepare her for discharge home. Time/GCodes Time In: 810 Time Out: 845 Total Billed Treatment Time: 35 Total Billed Treatment visit FA 20 EX 15 STEPHANIE BALLESTEROS PT May 16, 2016 11:02
[2016-05-16 18:00] VITALS: BP 170/76
[2016-05-16] MEDS: ATORVASTATIN 10 MG (LIPITOR) TABLET PO SCH (20:23)
[2016-05-17 04:20] VITALS: BP 183/66
[2016-05-17] MEDS: inSUlin ASPART (NovoLOG) 1 UNIT/0.01 ML (CHARGE PER UNIT) SC SCH ×4 (05:39→20:17)
[2016-05-17] MEDS: DOXYCYCLINE 100 MG (VIBRAMYCIN) TABLET PO SCH ×2 (06:27→17:16)
[2016-05-17] MEDS: inSUlin NPH (NovoLIN N) 1 UNIT/0.01 ML (CHARGE PER UNIT) SQ SCH (06:27)
[2016-05-17] MEDS: PIOGLITAZONE 30MG (ACTOS) TAB PO SCH (06:27)
[2016-05-17] MEDS: GLIMEPIRIDE 2 MG (AMARYL) TAB PO SCH (06:27)
[2016-05-17] MEDS: LEVOTHYROXINE 150 MCG (LEVOTHROID) TAB PO SCH (06:27)
[2016-05-17] MEDS: inSUlin ASPART (NovoLOG) 1 UNIT/0.01 ML (CHARGE PER UNIT) SQ SCH ×3 (06:28→18:10)
[2016-05-17] MEDS: MICONAZOLE 2% POWDER (DESENEX AF) 90 GM TOP SCH ×2 (09:15→20:17)
[2016-05-17] MEDS: VERAPAMIL SR 240 MG (CALAN SR) TAB PO SCH (09:15)
[2016-05-17] MEDS: CIPROFLOXACIN 500 MG (CIPRO) TABLET PO SCH ×2 (09:15→20:17)
[2016-05-17] MEDS: meTOproloL SUCCINATE 50 MG (TOPROL XL) TAB PO SCH (09:15)
[2016-05-17 17:48] VITALS: BP 168/68
[2016-05-17] MEDS: ATORVASTATIN 10 MG (LIPITOR) TABLET PO SCH (20:17)
[2016-05-18 04:09] VITALS: BP 171/68
[2016-05-18] MEDS: inSUlin ASPART (NovoLOG) 1 UNIT/0.01 ML (CHARGE PER UNIT) SC SCH ×4 (06:00→20:58)
[2016-05-18] MEDS: LEVOTHYROXINE 150 MCG (LEVOTHROID) TAB PO SCH (06:12)
[2016-05-18] MEDS: DOXYCYCLINE 100 MG (VIBRAMYCIN) TABLET PO SCH ×2 (06:13→18:37)
[2016-05-18] MEDS: GLIMEPIRIDE 2 MG (AMARYL) TAB PO SCH (06:13)
[2016-05-18] MEDS: PIOGLITAZONE 30MG (ACTOS) TAB PO SCH (06:13)
[2016-05-18] MEDS: inSUlin NPH (NovoLIN N) 1 UNIT/0.01 ML (CHARGE PER UNIT) SQ SCH (06:42)
[2016-05-18] MEDS: inSUlin ASPART (NovoLOG) 1 UNIT/0.01 ML (CHARGE PER UNIT) SQ SCH ×3 (06:42→18:37)
--- NOTE | 2016-05-18 08:11 | Progress Note (SOAP) ---
Subjective Subjective/Events-last exam patient feel she is doing better. Patient has numbnebehind the right side patient hypertensive. Renal insufficiency. Diabetes Objective Exam Vital Signs Date Time Temp Pulse Resp B/P Pulse Ox O2 Delivery O2 Flow Rate FiO2 05/18/16 04:09 97.0 72 20 171/68 98 Room Air 05/17/16 20:10 Room Air 05/17/16 17:48 97.2 70 20 168/68 100 Room Air 05/17/16 09:24 Room Air I & O 05/18/16 07:00 Intake Total 1750 ml Balance 1750 ml Capillary Refill : General Appearance: No Apparent Distress WD/WN Results Lab Laboratory Tests 05/17/16 10:59: Glucometer 96 05/17/16 16:30: Glucometer 120H 05/17/16 20:16: Glucometer 122H 05/18/16 06:12: Glucometer 121H Microbiology 05/11/16 Gram Stain - Final, Complete 05/11/16 Wound Culture - Final, Complete Staphylococcus Aureus Pseudomonas Aeruginosa Pseudomonas [place] Assessment/Plan Assessment/Plan Assess & Plan/Chief Complaint pain in the left thigh causing difficulty in getting around better Postpolio syndrome. Ambulatory dysfunction. Diabetes. Hypothyroid. Hypertension. Chronic renal insufficiency area. . 05/08/16. Post polio syndrome. Ambulatory dysfunction. Diabetes. Hypothyroid. Hypertension put on Toprol. Chronic renal sufficiency. . 05/11/16. Postpolio syndrome. Ambulatory dysfunction. Diabetes. Hypothyroid. Hypertension.. . 05/12/16. Postpolio syndrome. Ambulatory dysfunction. Diabetes. Hypothyroid. Hypertension. Still having pain in the left thigh when he tries to stand up. . 05/13/16. Pain in left thigh back. Hypertension. Diabetes. Hypothyroid. Increased the Toprol. Consult with pain management. . 05/14/16. Pain in left thigh. Patient seen by pain management. Hypertension. Has improved since yesterday. Diabetes. Culture shows 3 organisms. Patient put on 2 antibiotics to cover them. . 05/15/16. Pain in left thigh causing difficulty in getting around. Postpolio syndrome. Ambulatory dysfunction. Diabetes. Patient positive. Patient did get up a little yesterday . 05/18/16 ambulatory dysfunction. Diabetes.. Patient didn't get up a little this weekend. Patient has numbness behind the thigh. Renal insufficiency. Hypertension patient put on Norvasc Diagnosis/Problems: Clinical Quality Measures DVT/VTE Risk/Contraindication: Risk Factor Score Per Nursin RFS Level Per Nursing on Admit: 4+=Very High ERASTO TRAMMELL DO May 18, 2016 08:11
[2016-05-18] MEDS: VERAPAMIL SR 240 MG (CALAN SR) TAB PO SCH (09:03)
[2016-05-18] MEDS: MICONAZOLE 2% POWDER (DESENEX AF) 90 GM TOP SCH ×2 (09:03→21:13)
[2016-05-18] MEDS: amLODIPine 2.5MG (NORVASC) TAB PO SCH (09:03)
[2016-05-18] MEDS: CIPROFLOXACIN 500 MG (CIPRO) TABLET PO SCH ×2 (09:03→21:13)
[2016-05-18] MEDS: meTOproloL SUCCINATE 50 MG (TOPROL XL) TAB PO SCH (09:03)
--- NOTE | 2016-05-18 11:00 | Physical Therapy Daily Note ---
PT Daily Note-Current Subjective Patient in power chair pre tx in her room, agrees to PT. No complaints of pain at rest. Appearance Patient in power chair post tx. Notified nursing to let patient be independent in the hospital, she can operate the elevator without difficulty. Mental Status Patient Orientation: Normal For Age Transfers Functional [place] Measure 0=Not Assessed/NA 4=Minimal Assistance 1=Total Assistance 5=Supervision or Setup 2=Maximal Assistance 6=Modified [place] 3=Moderate Assistance 7=Complete IndependenceIRFPAI Quality Coding Scale 6 Independent with activity with or without an assistive device 5 Patient requires set up or clean up by helper. Patient completes activity by themselves 4 Supervision or touching assist (CGA). [place] provide cues , steadying assist 3 The helper provides less than half the effort to complete the activity 2 The helper provides more than half the effort to complete the activity 1 Dependent. The helper does all the effort to complete an activity 7 Patient refused to complete or attempt activity 9 The patient did not perform the activity before the current illness or injury 88 Not attempted due to Medical conditions or safety concerns Transfers (B, C, W/C) (FIM): 4 Sit to/from Stand: 4 Bed to/from Chair: 4 Patient performed a transfer twice. She went from her wheelchair to the therapy table and back [address], CGA. Gait Training Gait (FIM): 1 Distance: 3' Gait Level of Assist: 4 Gait Persons Needed: 1 Gait Assistive Device: Crutches Patient ambulated a few feet to transfer from the wheelchair to the therapy mat and back using her crutches with CGA. She states the pain in her left leg is much less today. Wheelchair Training Wheelchair (FIM): 6 Distance: 3000' Patient navigated her power chair off the floor and down the elevator and outside on community surfaces. Exercises Seated Therapy Exercises: Ankle pumps, Hip flexion Seated Reps: 20 LAQ left side for 5 min, patient also stood in the parallel bars with SBA x3 for approx 30 seconds each time Treatments transfers, ambulation, functional strengthening, wheelchair mobility Assessment Current Status: Fair Progress patient was able to ambulate today, better transfers PT Short Term Goals Short Term Goals Time Frame: May 13, 2016 Wheelchair Distance: 150' PT Fdc Goals Shell Trim Operator Goals PT Shell Trim Operator Goals Time Frame: May 27, 2016 Transfers (B,C,W/C) (FIM): 3 Wheelchair (FIM): 6 Distance: 200' PT Plan Problem List Problem List: Activity Tolerance, Functional Strength, Safety, Balance, Gait, Transfer, Bed Mobility, ROM Treatment/Plan Treatment Plan: Continue Plan of Care Treatment Plan: Bed Mobility, Education, Functional Activity Carol, Functional Strength, Group Therapy, Gait, Safety, Therapeutic Exercise, Transfers Treatment Duration: May 27, 2016 Visits Per Week: 10-11 Minutes/Day (M-F): 60-90 Minutes/Day (Sat/Herman): 15-30 Safety Risks/Education Patient Education: Gait Training, Transfer Techniques, Correct Positioning, W/ C Management, Safety Issues Teaching Recipient: Patient Teaching Methods: Demonstration, Discussion Response to Teaching: Reinforcement Needed Time/GCodes Time In: 1000 Time Out: 1100 Total Billed Treatment Time: 60 Total Billed Treatment 1 visit [facility] 10 min [facility] 15 min EX 15 min FA 20 min LENORE EGAN PT May 18, 2016 10:59
--- NOTE | 2016-05-18 11:33 | Occupational Ther Daily Note ---
OT Current Status-Daily Note Subjective Pt alert, lying in bed. Pt is not sure if she is leaving tomorrow or not. Pt has made progress with transfers. Agreed to therapy. No c/o pain at this time. Mental Status/Objective Patient Orientation: Person, Place, Time, Situation Functional [place] Measure 0=Not Assessed/NA 4=Minimal Assistance 1=Total Assistance 5=Supervision or Setup 2=Maximal Assistance 6=Modified [place] 3=Moderate Assistance 7=Complete [place] ADL-Treatment Functional [place] Measure 0=Not Assessed/NA 4=Minimal Assistance 1=Total Assistance 5=Supervision or Setup 2=Maximal Assistance 6=Modified [place] 3=Moderate Assistance 7=Complete IndependenceIRFPAI Quality Coding Scale 6 Independent with activity with or without an assistive device 5 Patient requires set up or clean up by helper. Patient completes activity by themselves 4 Supervision or touching assist (CGA). [place] provide cues , steadying assist 3 The helper provides less than half the effort to complete the activity 2 The helper provides more than half the effort to complete the activity 1 Dependent. The helper does all the effort to complete an activity 7 Patient refused to complete or attempt activity 9 The patient did not perform the activity before the current illness or injury 88 Not attempted due to Medical conditions or safety concerns Eating (FIM): 7 (Pt able to complete set up and self feeding with regular utensils.) Eating (QC): 6 (Pt able to complete set up and self feeding with regular utensils.) Grooming (FIM): 6 (Sitting at sink, pt is able to complete all grooming by self.) Oral Hygiene (QC): 6 (Sitting at sink, pt is able to complete all oral care by self.) Bathing (FIM): 6 (Sitting on rolling shower chair, pt is able to complete own bathing. Long handle sponge to reach lower legs.) Bathing Location: L Arm, R Arm, L Upper Leg, R Upper Leg, L Lower Leg ( including foot), R Lower Leg (including foot), Chest, Abdomen, Buttocks, Perineal Area Shower/Bathe Self (QC): 6 (Sitting on rolling shower chair, pt is able to complete own bathing. Long handle sponge to reach lower legs.) Upper Body (FIM): 5 (Set up. Pt is able to don/doff clothing by self.) Upper Body Dressing (QC): 5 (Set up. Pt is able to don/doff clothing by self.) Lower Body Dressing (FIM): 4 (After set up, pt dons/doffs skirt by self. Assist needed to don socks/shoes. Does not wear underwear.) Lower Body Dressing (QC): 4 (After set up, pt dons/doffs skirt by self. Assist needed to don socks/shoes. Does not wear underwear.) Toileting (FIM): 3 (Pt is able to use crutches to stand and manipulate clothing with SBA. Pt unable to reach and complete hygiene sitting on BSC.) Toileting Hygiene (QC): 3 (Pt is able to use crutches to stand and manipulate clothing with SBA. Pt unable to reach and complete hygiene sitting on BSC.) Transfers (B, C, W/C) (FIM): 4 (Using crutches, pt is CGA for transfers.) Toilet/Commode Transfer (FIM): 4 (Using crutches, pt is CGA for transfers.) Toilet Transfer (QC): 4 (Using crutches, pt is CGA for transfers.) Shower Transfer(FIM): 3 Due to pt's decreased mobility OT recommends that pt uses BSC at home for safety. Pt has demonstrated transfers for stand pivot transfers. Due to height of rolling shower chair pt needed to use sit to stand lift to transfer onto chair. Transferring off of chair pt was able to complete a stand pivot transfer with CGA using crutches to transfer to motorized w/c. Pt demonstrated ability to open/close cabinets, drawers and doors in kitchen with motorized w/ c. Toileting aid given to pt for hygiene after toileting. Other Treatment Pt completed arm bike 15 min duration at 25 lynn resistance, no breaks, to increase strength and activity tolerance for daily functional tasks. After therapy, pt sitting in motorized w/c with call light/phone in reach. All needs met in room. Education OT Patient Education: Use of adapted equipment Teaching Recipient: Patient Teaching Methods: Demonstration, Discussion Response to Teaching: Verbalize Understanding OT Short Term Goals Short Term Goals Time Frame: May 13, 2016 Lower Body Dressing(FIM): 4 Toileting(FIM): 3 Toilet/Commode Transfer(FIM): 2 Additional Short Term Goals: 2-Verbalize Understanding, 3-ImproveStrength/Carol 1=Demonstrate adherence to instructed precautions during ADL tasks. 2=Patient will verbalize/demonstrate understanding of assistive devices/ modifications for ADL. 3=Patient will improve strength/tolerance for activity to enable patient to perform ADL's. OT Correction Goals Correction Goals Time Frame: May 27, 2016 1=Demonstrate adherence to instructed precautions during ADL tasks. 2=Patient will verbalize/demonstrate understanding of assistive devices/ modifications for ADL. 3=Patient will improve strength/tolerance for activity to enable patient to perform ADL's. OT Education/Plan Problem List/Assessment Pt would benefit from skilled OT to increase her independence in basic transfers and self care to allow her to safely return to her home to live independently and decrease caregiver burden Discharge Recommendations Plan/Recommendations: Continue POC Treatment Plan/Plan of Care Patient would benefit from OT for education, treatment and training to promote independence in ADL's, mobility, safety and/or upper extremity function for ADL' s. Plan of Care: ADL Retraining, Functional Mobility, Group Exercise/Act as Ind ( education, exercise, activity tolerance, functional activities, socialization), UE Funct Exercise/Act, UE Neuromus Re-Ed/Coord, W/C Management Training Treatment Duration: May 27, 2016 Visits Per Week: 10-11 Minutes/Day (M-F): 75-90 Minutes/Day (Sat/Herman): 15-30 Agreement: Yes Rehab Potential: Good Time/GCodes Start Time: 08:15 Stop Time: 09:45 Total Time Billed (hr/min): 90 Billed Treatment Time 1 visit-ADL 4 (60 min) FA 1 (15 min) EX 1 (15 min) STEPHANIE WILLOUGHBY May 18, 2016 11:33
--- NOTE | 2016-05-18 13:40 | Physical Therapy Daily Note ---
PT Daily Note-Current Subjective Patient in power chair pre tx in her room, agrees to PT. No complaints of pain at rest. Appearance Patient in power chair post tx. Notified nursing to let patient be independent in the hospital, she can operate the elevator without difficulty. Mental Status Patient Orientation: Normal For Age Transfers Functional [place] Measure 0=Not Assessed/NA 4=Minimal Assistance 1=Total Assistance 5=Supervision or Setup 2=Maximal Assistance 6=Modified [place] 3=Moderate Assistance 7=Complete IndependenceIRFPAI Quality Coding Scale 6 Independent with activity with or without an assistive device 5 Patient requires set up or clean up by helper. Patient completes activity by themselves 4 Supervision or touching assist (CGA). [place] provide cues , steadying assist 3 The helper provides less than half the effort to complete the activity 2 The helper provides more than half the effort to complete the activity 1 Dependent. The helper does all the effort to complete an activity 7 Patient refused to complete or attempt activity 9 The patient did not perform the activity before the current illness or injury 88 Not attempted due to Medical conditions or safety concerns Transfers (B, C, W/C) (FIM): 4 Sit to/from Stand: 4 Bed to/from Chair: 4 Patient performed a transfer twice. She went from her wheelchair to the therapy table and back [address], CGA. Gait Training Gait (FIM): 1 Distance: 3' Gait Level of Assist: 4 Gait Persons Needed: 1 Gait Assistive Device: Crutches Patient ambulated a few feet to transfer from the wheelchair to the therapy mat and back using her crutches with CGA. She states the pain in her left leg is much less today. Wheelchair Training Wheelchair (FIM): 6 Distance: 3000' Type of Wheelchair: Manual Patient navigated her power chair off the floor and down the elevator and outside on community surfaces. Exercises Seated Therapy Exercises: Ankle pumps, Hip flexion Seated Reps: 20 LAQ left side for 5 min, patient also stood in the parallel bars with SBA x3 for approx 30 seconds each time Treatments transfers, ambulation, functional strengthening, wheelchair mobility Assessment Current Status: Fair Progress patient was able to ambulate today, better transfers PT Short Term Goals Short Term Goals Time Frame: May 13, 2016 Wheelchair Distance: 3000' PT Rotor Casting Machine Operator Goals Rotor Casting Machine Operator Goals PT Fdc Goals Time Frame: May 27, 2016 Transfers (B,C,W/C) (FIM): 3 Sit to Lying (QC): 4 Lying-Sitting on Side/Bed(QC): 4 Sit to Stand (QC): 2 Rollin Roll Left to Right (QC): 4 Chair/Xvi-ay-Rrppq Xfer(QC): 2 Car Transfer (QC): 88 Wheelchair (FIM): 6 Distance: 200' Wheel 50 feet with 2 turns (QC: 6 PT Plan Problem List Problem List: Activity Tolerance, Functional Strength, Safety, Balance, Gait, Transfer, Bed Mobility, ROM Treatment/Plan Treatment Plan: Continue Plan of Care Treatment Plan: Bed Mobility, Education, Functional Activity [place], Functional Strength, Group Therapy, Gait, Safety, Therapeutic Exercise, Transfers Treatment Duration: May 27, 2016 Visits Per Week: 10-11 Minutes/Day (M-F): 60-90 Minutes/Day (Sat/Herman): 15-30 Safety Risks/Education Patient Education: Gait Training, Transfer Techniques, Correct Positioning, W/ C Management, Safety Issues Teaching Recipient: Patient Teaching Methods: Demonstration, Discussion Response to Teaching: Reinforcement Needed Time/GCodes Time In: 1000 Time Out: 1100 Total Billed Treatment Time: 60 Total Billed Treatment 1 visit GT 10 min [facility] 15 min EX 15 min FA 20 min LENORE EGAN PT May 18, 2016 13:40
[2016-05-18 13:57] LABS: BASOPHILS % (AUTO) 0 % (0-10); EOSINOPHILS # (AUTO) 0.1 10^3/uL (0.0-0.3); EOSINOPHILS % (AUTO) 2 % (0-10); LYMPHOCYTES % (AUTO) 14 % (12-44); MEAN CORPUSCULAR HEMOGLOBIN 28 PG (25-34); MEAN CORPUSCULAR HGB CONC 31 G/DL (32-36); MEAN CORPUSCULAR VOLUME 88 FL (80-99); MEAN PLATELET VOLUME 9.8 FL (7.4-10.4); MONOCYTES # (AUTO) 0.7 X 10^3 (0.0-1.0); MONOCYTES % (AUTO) 9 % (0-12); NEUTROPHILS # (AUTO) 5.4 X 10^3 (1.8-7.8); NEUTROPHILS % (AUTO) 75 % (42-75); PLATELET COUNT 267 10^3/uL (130-400); RED BLOOD COUNT 3.02 10^6/uL (4.35-5.85); RED CELL DISTRIBUTION WIDTH 13.4 % (10.0-14.5); WHITE BLOOD COUNT 7.2 10^3/uL (4.3-11.0)
[2016-05-18 14:08] LABS: BILIRUBIN,TOTAL 0.7 MG/DL (0.1-1.0); CALCIUM 9.2 MG/DL (8.5-10.1); CREATININE SERUM 2.16 MG/DL (0.60-1.30); POTASSIUM 4.6 MMOL/L (3.6-5.0); TOTAL PROTEIN 6.4 G/DL (6.4-8.2)
--- NOTE | 2016-05-18 14:37 | Physical Therapy Daily Note ---
PT Daily Note-Current Subjective Patient in power chair pre tx, agrees to PT, no complaints of pain. Appearance Patient in wheelchair post tx in her room. Mental Status Patient Orientation: Normal For Age Transfers Functional [place] Measure 0=Not Assessed/NA 4=Minimal Assistance 1=Total Assistance 5=Supervision or Setup 2=Maximal Assistance 6=Modified [place] 3=Moderate Assistance 7=Complete IndependenceIRFPAI Quality Coding Scale 6 Independent with activity with or without an assistive device 5 Patient requires set up or clean up by helper. Patient completes activity by themselves 4 Supervision or touching assist (CGA). [place] provide cues , steadying assist 3 The helper provides less than half the effort to complete the activity 2 The helper provides more than half the effort to complete the activity 1 Dependent. The helper does all the effort to complete an activity 7 Patient refused to complete or attempt activity 9 The patient did not perform the activity before the current illness or injury 88 Not attempted due to Medical conditions or safety concerns Transfers (B, C, W/C) (FIM): 4 Sit to/from Stand: 4 Bed to/from Chair: 4 Patient did a stand pivot twice, once from wheelchair to therapy mat and then back. CGA Gait Training Gait (FIM): 1 Distance: 3'x2 Gait Level of Assist: 4 Gait Persons Needed: 1 Gait Assistive Device: Crutches patient had to ambulate about 3' from wheelchair to mat and back Exercises sit to motor vehicle licence examiner parallel bars x3, for about 40 seconds each time Treatments transfers, ambulation, functional strengthening Assessment Current Status: Fair Progress improving transfers, still poor endurance, needs rest breaks between transfers and standing PT Short Term Goals Short Term Goals Time Frame: May 13, 2016 Wheelchair Distance: 3000' PT Auto Inspection Specialist Goals Auto Inspection Specialist Goals PT Auto Inspection Specialist Goals Time Frame: May 27, 2016 Transfers (B,C,W/C) (FIM): 3 Sit to Lying (QC): 4 Lying-Sitting on Side/Bed(QC): 4 Sit to Stand (QC): 2 Rollin Roll Left to Right (QC): 4 Chair/Kpt-tx-Wawnb Xfer(QC): 2 Car Transfer (QC): 88 Wheelchair (FIM): 6 Distance: 200' Wheel 50 feet with 2 turns (QC: 6 PT Plan Problem List Problem List: Activity Tolerance, Functional Strength, Safety, Balance, Gait, Transfer, Bed Mobility, ROM Treatment/Plan Treatment Plan: Continue Plan of Care Treatment Plan: Bed Mobility, Education, Functional Activity Carol, Functional Strength, Group Therapy, Gait, Safety, Therapeutic Exercise, Transfers Treatment Duration: May 27, 2016 Visits Per Week: 10-11 Minutes/Day (M-F): 60-90 Minutes/Day (Sat/Herman): 15-30 Safety Risks/Education Patient Education: Gait Training, Transfer Techniques, Safety Issues Teaching Recipient: Patient Teaching Methods: Demonstration, Discussion Response to Teaching: Reinforcement Needed Time/GCodes Time In: 1505 Time Out: 1535 Total Billed Treatment Time: 30 Total Billed Treatment 1 visit GT 10 min FA 20 min LENORE EGAN PT May 18, 2016 14:36
[2016-05-18 18:24] VITALS: BP 172/75
--- NOTE | 2016-05-18 20:55 | PM & R (SOAP) Progress Note ---
Subjective Subjective/Events-last exam Patient was seen in her room this eveing Discussed case with RN Appreciate PT note Patient Min assist for transfers and left thigh pain much improved Patients friends have brought her E W/C in from [place] so that she can practice her transfers Patient has ramp at home for W/C accessibility Objective Exam Last Set of Vital Signs Vital Signs Date Time Temp Pulse Resp B/P Pulse Ox O2 Delivery O2 Flow Rate FiO2 05/18/16 18:24 96.1 66 16 172/75 99 05/18/16 09:30 Room Air Capillary Refill : I&O Intake and Output 05/18/16 00:00 Intake Total 1540 ml Balance 1540 ml Intake Oral 1540 ml # Voids 6 # Bowel Movements 1 General: Alert, No Acute Distress HEENT: Atraumatic Neck: Supple Lungs: Normal Air Movement Heart: Regular Rate Abdomen: Soft Extremities: Other (chronic venousstasis with legs wrapped some weeping noted by Staff) Skin: Other (R lateral calf --- 0.8 x 0.7 x 0.1 cm, 100% regenerating tissue, partial thickness.) Neuro: Other (Weaknees both lower extremities Rt >lleft with tenderness left post thigh improved) Results Lab Laboratory Tests 05/16/16 05:55: Glucometer 110 05/16/16 11:17: Glucometer 119H 05/16/16 16:00: Glucometer 158H 05/16/16 20:21: Glucometer 173H 05/17/16 05:24: Glucometer 118H 05/17/16 10:59: Glucometer 96 05/17/16 16:30: Glucometer 120H 05/17/16 20:16: Glucometer 122H 05/18/16 06:12: Glucometer 121H 05/18/16 10:50: Glucometer 105 05/18/16 13:40: Alanine Aminotransferase (ALT/SGPT) 22, Albumin 3.0L, Alkaline Phosphatase 83, Anion Gap 12, Aspartate Amino Transf (AST/SGOT) 20, BUN/Creatinine Ratio 20, Basophils # (Auto) 0.0, Basophils (%) (Auto) 0, Blood Urea Nitrogen 43H, Calcium Level 9.2, Carbon Dioxide Level 20L, Chloride Level 111H, Creatinine 2.16H, Eosinophils # (Auto) 0.1, Eosinophils (%) (Auto) 2, Estimat Glomerular Filtration Rate 23, Glucose Level 155H, Hematocrit 27L, Hemoglobin 8.3L, Lymphocytes # (Auto) 1.0, Lymphocytes (%) (Auto) 14, Mean Corpuscular Hemoglobin 28, Mean Corpuscular Hemoglobin Concent 31L, Mean Corpuscular Volume 88, Mean Platelet Volume 9.8, Monocytes # (Auto) 0.7, Monocytes (%) (Auto) 9, Neutrophils # (Auto) 5.4, Neutrophils (%) (Auto) 75, Platelet Count 267, Potassium Level 4.6, Red Blood Count 3.02L, Red Cell Distribution Width 13.4, Sodium Level 143, Total Bilirubin 0.7, Total Protein 6.4, White Blood Count 7.2 05/18/16 15:55: Glucometer 168H 05/18/16 20:23: Glucometer 125H Microbiology 05/11/16 Gram Stain - Final, Complete 05/11/16 Wound Culture - Final, Complete Staphylococcus Aureus Pseudomonas Aeruginosa Pseudomonas [place] Assessment/Plan Assessment Post-polio syndrome Fall with left leg pain much improved IDDM Morbid obesity Chronic venous stasis BLES wraps in place RN reports weeping DR Johnson has seen and Wound culture noted-antibiotics adjusted Stahe 2 venoustasis wound RT lateral thigh DR Johnson managing Contact precautions Lumbar spinal stenosis- Conservative care. Plan Continue PT/OT/Pain Management/Wound care ST has signed off Blood pressure elevated-DR Dunaway has seen-imroved Adjust meds as needed Continue Misha wraps-DR Johnson following F/U with culture [id number] adjusted by Dr dunaway Patient reports that PCP is DR Hawkins in [facility] as per above-done Continue with Stand pivot transfers with Axillary crutches to Power W/C Discharge remains tentatively set for 05/20/[address] [facility] Will confirm with SW tomorrow. NILDA DYER MD May 18, 2016 20:55
[2016-05-18] MEDS: ATORVASTATIN 10 MG (LIPITOR) TABLET PO SCH (21:13)
[2016-05-19] MEDS: HYDROcodone/APAP 5 MG/325 MG (LORTAB) TAB PO PRN (02:40)
[2016-05-19 06:00] VITALS: BP 153/65
[2016-05-19] MEDS: inSUlin ASPART (NovoLOG) 1 UNIT/0.01 ML (CHARGE PER UNIT) SC SCH ×4 (06:00→20:48)
[2016-05-19] MEDS: LEVOTHYROXINE 150 MCG (LEVOTHROID) TAB PO SCH (07:26)
[2016-05-19] MEDS: inSUlin NPH (NovoLIN N) 1 UNIT/0.01 ML (CHARGE PER UNIT) SQ SCH (07:26)
[2016-05-19] MEDS: inSUlin ASPART (NovoLOG) 1 UNIT/0.01 ML (CHARGE PER UNIT) SQ SCH ×3 (07:27→18:06)
[2016-05-19] MEDS: PIOGLITAZONE 30MG (ACTOS) TAB PO SCH (07:27)
[2016-05-19] MEDS: GLIMEPIRIDE 2 MG (AMARYL) TAB PO SCH (07:27)
[2016-05-19] MEDS: DOXYCYCLINE 100 MG (VIBRAMYCIN) TABLET PO SCH ×2 (07:27→17:54)
--- NOTE | 2016-05-19 08:07 | Progress Note (SOAP) ---
Subjective Subjective/Events-last exam patient feeling good this morning. Patient states she's doing better. Patient only used to lift 2 times within the last few days Takes patient while to get up. Has renal insufficiency patient states she's not drinking much Objective Exam Vital Signs Date Time Temp Pulse Resp B/P Pulse Ox O2 Delivery O2 Flow Rate FiO2 05/19/16 06:00 97.6 68 18 153/65 98 Room Air 05/18/16 21:00 Room Air 05/18/16 18:24 96.1 66 16 172/75 99 05/18/16 09:30 Room Air I & O 05/19/16 07:00 Intake Total 1550 ml Balance 1550 ml Capillary Refill : General Appearance: No Apparent Distress WD/WN HEENT: Normal ENT Inspection Neck: Full Range of Motion Normal Inspection Respiratory: Chest Non Tender Lungs Clear No Accessory Muscle Use No Respiratory Distress Cardiovascular: Regular Rate, Rhythm No Murmur Gastrointestinal: non tender soft Results Lab Laboratory Tests 05/18/16 13:40 Laboratory Tests 05/18/16 10:50: Glucometer 105 05/18/16 13:40: Alanine Aminotransferase (ALT/SGPT) 22, Albumin 3.0L, Alkaline Phosphatase 83, Anion Gap 12, Aspartate Amino Transf (AST/SGOT) 20, BUN/Creatinine Ratio 20, Basophils # (Auto) 0.0, Basophils (%) (Auto) 0, Blood Urea Nitrogen 43H, Calcium Level 9.2, Carbon Dioxide Level 20L, Chloride Level 111H, Creatinine 2.16H, Eosinophils # (Auto) 0.1, Eosinophils (%) (Auto) 2, Estimat Glomerular Filtration Rate 23, Glucose Level 155H, Hematocrit 27L, Hemoglobin 8.3L, Lymphocytes # (Auto) 1.0, Lymphocytes (%) (Auto) 14, Mean Corpuscular Hemoglobin 28, Mean Corpuscular Hemoglobin Concent 31L, Mean Corpuscular Volume 88, Mean Platelet Volume 9.8, Monocytes # (Auto) 0.7, Monocytes (%) (Auto) 9, Neutrophils # (Auto) 5.4, Neutrophils (%) (Auto) 75, Platelet Count 267, Potassium Level 4.6, Red Blood Count 3.02L, Red Cell Distribution Width 13.4, Sodium Level 143, Total Bilirubin 0.7, Total Protein 6.4, White Blood Count 7.2 05/18/16 15:55: Glucometer 168H 05/18/16 20:23: Glucometer 125H 05/19/16 06:57: Glucometer 90 Microbiology 05/11/16 Gram Stain - Final, Complete 05/11/16 Wound Culture - Final, Complete Staphylococcus Aureus Pseudomonas Aeruginosa Pseudomonas [place] Assessment/Plan Assessment/Plan Assess & Plan/Chief Complaint pain in the left thigh causing difficulty in getting around better Postpolio syndrome. Ambulatory dysfunction. Diabetes. Hypothyroid. Hypertension. Chronic renal insufficiency area. . 05/08/16. Post polio syndrome. Ambulatory dysfunction. Diabetes. Hypothyroid. Hypertension put on Toprol. Chronic renal sufficiency. . 05/11/16. Postpolio syndrome. Ambulatory dysfunction. Diabetes. Hypothyroid. Hypertension.. . 05/12/16. Postpolio syndrome. Ambulatory dysfunction. Diabetes. Hypothyroid. Hypertension. Still having pain in the left thigh when he tries to stand up. . 05/13/16. Pain in left thigh back. Hypertension. Diabetes. Hypothyroid. Increased the Toprol. Consult with pain management. . 05/14/16. Pain in left thigh. Patient seen by pain management. Hypertension. Has improved since yesterday. Diabetes. Culture shows 3 organisms. Patient put on 2 antibiotics to cover them. . 05/15/16. Pain in left thigh causing difficulty in getting around. Postpolio syndrome. Ambulatory dysfunction. Diabetes. Patient positive. Patient did get up a little yesterday . 05/18/16 ambulatory dysfunction. Diabetes.. Patient didn't get up a little this weekend. Patient has numbness behind the thigh. Renal insufficiency. Hypertension patient put on Norvasc. . 05/19/16. Patient states she's getting around better. Patient states she's only used to live twice the last few days post polio syndrome. Ambulatory Diabetes. Hypertension. Pain in left thigh pleasant difficulty in getting around better Diagnosis/Problems: Clinical Quality Measures DVT/VTE Risk/Contraindication: Risk Factor Score Per Nursin RFS Level Per Nursing on Admit: 4+=Very High ERASTO TRAMMELL DO May 19, 2016 08:07
[2016-05-19] MEDS: amLODIPine 2.5MG (NORVASC) TAB PO SCH (08:40)
[2016-05-19] MEDS: meTOproloL SUCCINATE 50 MG (TOPROL XL) TAB PO SCH (08:40)
[2016-05-19] MEDS: CIPROFLOXACIN 500 MG (CIPRO) TABLET PO SCH (08:40)
[2016-05-19] MEDS: VERAPAMIL SR 240 MG (CALAN SR) TAB PO SCH (08:40)
--- NOTE | 2016-05-19 09:50 | PM & R (SOAP) Progress Note ---
Subjective Subjective/Events-last exam Patient was seen in her room this AM Practicing transfers with Therapy Patient indicates that her w/c van is here in Parking lot in anticipation of discharge to home with [facility] tomorrow Patient MIN to CGA for transfers Objective Exam Last Set of Vital Signs Vital Signs Date Time Temp Pulse Resp B/P Pulse Ox O2 Delivery O2 Flow Rate FiO2 05/19/16 06:00 97.6 68 18 153/65 98 Room Air Capillary Refill : I&O Intake and Output 05/19/16 00:00 Intake Total 1850 ml Balance 1850 ml Intake Oral 1850 ml # Voids 8 General: Alert, No Acute Distress HEENT: Atraumatic Neck: Supple Lungs: Normal Air Movement Heart: Regular Rate Abdomen: Soft Extremities: Other (chronic venousstasis with legs wrapped some weeping noted by Staff) Skin: Other (R lateral calf --- 0.8 x 0.7 x 0.1 cm, 100% regenerating tissue, partial thickness.) Neuro: Other (Weaknees both lower extremities Rt >lleft with tenderness left post thigh improved) Results Lab Laboratory Tests 05/16/16 11:17: Glucometer 119H 05/16/16 16:00: Glucometer 158H 05/16/16 20:21: Glucometer 173H 05/17/16 05:24: Glucometer 118H 05/17/16 10:59: Glucometer 96 05/17/16 16:30: Glucometer 120H 05/17/16 20:16: Glucometer 122H 05/18/16 06:12: Glucometer 121H 05/18/16 10:50: Glucometer 105 05/18/16 13:40: Alanine Aminotransferase (ALT/SGPT) 22, Albumin 3.0L, Alkaline Phosphatase 83, Anion Gap 12, Aspartate Amino Transf (AST/SGOT) 20, BUN/Creatinine Ratio 20, Basophils # (Auto) 0.0, Basophils (%) (Auto) 0, Blood Urea Nitrogen 43H, Calcium Level 9.2, Carbon Dioxide Level 20L, Chloride Level 111H, Creatinine 2.16H, Eosinophils # (Auto) 0.1, Eosinophils (%) (Auto) 2, Estimat Glomerular Filtration Rate 23, Glucose Level 155H, Hematocrit 27L, Hemoglobin 8.3L, Lymphocytes # (Auto) 1.0, Lymphocytes (%) (Auto) 14, Mean Corpuscular Hemoglobin 28, Mean Corpuscular Hemoglobin Concent 31L, Mean Corpuscular Volume 88, Mean Platelet Volume 9.8, Monocytes # (Auto) 0.7, Monocytes (%) (Auto) 9, Neutrophils # (Auto) 5.4, Neutrophils (%) (Auto) 75, Platelet Count 267, Potassium Level 4.6, Red Blood Count 3.02L, Red Cell Distribution Width 13.4, Sodium Level 143, Total Bilirubin 0.7, Total Protein 6.4, White Blood Count 7.2 05/18/16 15:55: Glucometer 168H 05/18/16 20:23: Glucometer 125H 05/19/16 06:57: Glucometer 90 Microbiology 05/11/16 Gram Stain - Final, Complete 05/11/16 Wound Culture - Final, Complete Staphylococcus Aureus Pseudomonas Aeruginosa Pseudomonas [place] Assessment/Plan Assessment Post-polio syndrome Fall with left leg pain much improved IDDM Morbid obesity Chronic venous stasis BLES wraps in place RN reports weeping DR Johnson has seen and Wound culture noted-antibiotics adjusted Stahe 2 venoustasis wound RT lateral thigh DR Johnson managing Contact precautions Lumbar spinal stenosis- Conservative care. Plan Continue PT/OT/Pain Management/Wound care ST has signed off Blood pressure elevated-DR Dunaway has seen-imroved Adjust meds as needed Continue Misha wraps-DR Johnson following F/U with culture [id number] adjusted by Dr dunaway Patient reports that PCP is DR Hawkins in [facility] as per above-done Continue with Stand pivot transfers with Axillary crutches to Power W/C Discharge remains tentatively set for 05/20/16 to home with [facility] Will confirm with SW tomorrow. Current therapy notes reviewed. NILDA DYER MD May 19, 2016 09:50
[2016-05-19] MEDS: MICONAZOLE 2% POWDER (DESENEX AF) 90 GM TOP SCH ×2 (09:55→20:48)
--- NOTE | 2016-05-19 09:59 | Occupational Ther Daily Note ---
OT Current Status-Daily Note Subjective Pt alert, lying in bed. Pt agreed to therapy. Pt c/o pain in R LE and R hip throughout the night, did not rate. Mental Status/Objective Patient Orientation: Person, Place, Time, Situation Functional [place] Measure 0=Not Assessed/NA 4=Minimal Assistance 1=Total Assistance 5=Supervision or Setup 2=Maximal Assistance 6=Modified [place] 3=Moderate Assistance 7=Complete [place] ADL-Treatment Functional [place] Measure 0=Not Assessed/NA 4=Minimal Assistance 1=Total Assistance 5=Supervision or Setup 2=Maximal Assistance 6=Modified [place] 3=Moderate Assistance 7=Complete IndependenceIRFPAI Quality Coding Scale 6 Independent with activity with or without an assistive device 5 Patient requires set up or clean up by helper. Patient completes activity by themselves 4 Supervision or touching assist (CGA). [place] provide cues , steadying assist 3 The helper provides less than half the effort to complete the activity 2 The helper provides more than half the effort to complete the activity 1 Dependent. The helper does all the effort to complete an activity 7 Patient refused to complete or attempt activity 9 The patient did not perform the activity before the current illness or injury 88 Not attempted due to Medical conditions or safety concerns Eating (FIM): 7 (Pt is able to complete set up and feed self with regular utensils.) Eating (QC): 6 (Pt is able to complete set up and feed self with regular utensils.) Grooming (FIM): 6 (Sitting at sink, pt is able to complete grooming.) Oral Hygiene (QC): 6 (Sitting at sink, pt is able to complete grooming.) Bathing (FIM): 6 (Using shower chair, long handle sponge and hand held shower pt is able to complete bathing.) Shower/Bathe Self (QC): 6 (Using shower chair, long handle sponge and hand held shower pt is able to complete bathing.) Upper Body (FIM): 5 (Pt unable to retrieve clothes from closet due to insufficient space to maneuver motorized w/c to get clothes. Pt is able to dress upper body by self.) Upper Body Dressing (QC): 5 (Pt unable to retrieve clothes from closet due to insufficient space to maneuver motorized w/c to get clothes. Pt is able to dress upper body by self.) Lower Body Dressing (FIM): 4 (Pt unable to retrieve clothes from closet due to insufficient space to maneuver motorized w/c to get clothes. Pt is able to don/ doff skirt over head by self. Assist to don/doff socks.) Lower Body Dressing (QC): 4 (Pt unable to retrieve clothes from closet due to insufficient space to maneuver motorized w/c to get clothes. Pt is able to don/ doff skirt over head by self. Assist to don/doff socks.) On/Off Footwear (QC): 1 (Unable to don/doff socks at this time.) Toileting (FIM): 3 (Pt able to transfer onto BSC with crutches and manipulate skirt. Uses hygiene tool to cleanse self, assist to use.) Toileting Hygiene (QC): 3 (Pt able to transfer onto BSC with crutches and manipulate skirt. Uses hygiene tool to cleanse self, assist to use.) Transfers (B, C, W/C) (FIM): 5 (Close SBA with stand pivot transfers. Pt uses crutches.) Toilet/Commode Transfer (FIM): 5 (Close SBA with stand pivot transfers. Pt uses crutches. Pt unable to get up from regular height of toilet and requires elevated seat for safe transfers.) Toilet Transfer (QC): 5 (Close SBA with stand pivot transfers. Pt uses crutches. Pt unable to get up from regular height of toilet and requires elevated seat for safe transfers.) Shower Transfer(FIM): 4 (Assist to hold shower chair in place for safety. Pt uses crutches to transfer to and from shower chair with close SBA.) Pt is using elevated surfaces to transfer for safety. Pt unable to transfer from regular toilet, chair or low bed safely. Elevated BSC, bed and pt's motorized w/c are being used for safe transfers. At pt's home, bathroom toilet is standard size according to pt. Pt unable to complete safe transfers in home bathroom. Other Treatment Pt maneuvered motorized w/c to therapy gym to complete arm bike. Duration 15 min at 25 lynn resistance, no breaks, to increase strength and activity tolerance for daily functional tasks. Call light/phone in reach. All needs met in room. OT Short Term Goals Short Term Goals Time Frame: May 13, 2016 Lower Body Dressing(FIM): 4 (met-05/19/16) Toileting(FIM): 3 (met-05/19/16) Toilet/Commode Transfer(FIM): 2 (met-05/19/16) Additional Short Term Goals: 2-Verbalize Understanding, 3-ImproveStrength/[place] 1=Demonstrate adherence to instructed precautions during ADL tasks. 2=Patient will verbalize/demonstrate understanding of assistive devices/ modifications for ADL. 3=Patient will improve strength/tolerance for activity to enable patient to perform ADL's. OT Fci Goals Fci Goals Time Frame: May 27, 2016 1=Demonstrate adherence to instructed precautions during ADL tasks. 2=Patient will verbalize/demonstrate understanding of assistive devices/ modifications for ADL. 3=Patient will improve strength/tolerance for activity to enable patient to perform ADL's. OT Education/Plan Problem List/Assessment Pt would benefit from skilled OT to increase her independence in basic transfers and self care to allow her to safely return to her home to live independently and decrease caregiver burden Discharge Recommendations Plan/Recommendations: Continue POC Treatment Plan/Plan of Care Patient would benefit from OT for education, treatment and training to promote independence in ADL's, mobility, safety and/or upper extremity function for ADL' s. Plan of Care: ADL Retraining, Functional Mobility, Group Exercise/Act as Ind ( education, exercise, activity tolerance, functional activities, socialization), UE Funct Exercise/Act, UE Neuromus Re-Ed/Coord, W/C Management Training Treatment Duration: May 27, 2016 Visits Per Week: 10-11 Minutes/Day (M-F): 75-90 Minutes/Day (Sat/Herman): 15-30 Agreement: Yes Rehab Potential: Good Time/GCodes Start Time: 08:15 Stop Time: 09:45 Total Time Billed (hr/min): 90 Billed Treatment Time 1 visit-ADL 4 (67 min) EX 2 (23 min) STEPHANIE WILLOUGHBY May 19, 2016 09:59
[2016-05-19 11:29] VITALS: BP 174/78
--- NOTE | 2016-05-19 14:00 | Physical Therapy Daily Note ---
PT Daily Note-Current Subjective Pt sitting in W/C upon arrival. Pt report being excited and wanting to try to discharge tomorrow. Pt agrees to PT. Pain Location: No Pain Reported Mental Status Patient Orientation: Person, Place, Time, Situation Transfers Functional Johnson Measure 0=Not Assessed/NA 4=Minimal Assistance 1=Total Assistance 5=Supervision or Setup 2=Maximal Assistance 6=Modified Johnson 3=Moderate Assistance 7=Complete IndependenceIRFPAI Quality Coding Scale 6 Independent with activity with or without an assistive device 5 Patient requires set up or clean up by helper. Patient completes activity by themselves 4 Supervision or touching assist (CGA). [place] provide cues , steadying assist 3 The helper provides less than half the effort to complete the activity 2 The helper provides more than half the effort to complete the activity 1 Dependent. The helper does all the effort to complete an activity 7 Patient refused to complete or attempt activity 9 The patient did not perform the activity before the current illness or injury 88 Not attempted due to Medical conditions or safety concerns Transfers (B, C, W/C) (FIM): 3 Scootin Rollin Roll Left to Right (QC): 4 Supine to/from Sit: 3 Sit to/from Stand: 6 Sit to Lying (QC): 4 Sit to Stand (QC): 6 Chair/Bao-yi-Xbxxc Xfer(QC): 6 Bed to/from Chair: 6 Car Transfer (QC): 6 Pt performs simulated car transfer in Therapy Gym. Weight Bearing Weight Bearing Restriction: Full Weight Bearing Location Restriction: L LE Pt only uses R foot for balance not WB. Gait Training Does the Patient Walk?: Yes Gait (FIM): 1 Distance (FIM): 1=up to 49 ft Distance: 3' Walk 10 feet (QC): 88 Walk 50 ft with 2 Turns(QC): 88 Walk 150 ft (QC): 88 Walking 10ft/uneven surface-QC: 88 Gait Level of Assist: 5 Gait Persons Needed: 1 Gait Assistive Device: Crutches Pt ambulates to transfer from motorized W/C to mat/chair. Pt cannot and has not ambulated longer distance for sometime even previous to hospital visit. Wheelchair Training Does the Pt Use a Wheelchair?: Yes Wheelchair Distance: 3=150 ft Distance: Community distances Wheelchair Level of Assist: 6 Wheel 50 ft with 2 turns (QC): 6 Wheel 150 ft (QC): 6 Type of Wheelchair: Motorized Pt able to propel self in motorized W/C in [facility] as well as outside in Hospital [facility] and walkways. Exercises Seated Therapy Exercises: Sit to stand, Long arc quads (5 min.), Kicking activity Seated Reps: 2 Treatments Pt propelled self in motorized W/C in Therapy Commons before propelling to Therapy Gym for transferring practice. Pt transfers from W/C to mat via crutches at [facility]. Pt then takes short rest before transferring back from mat to W/C. Pt then discussed discharging and what expectations pt had and if anything else is needed. Pt then transfers again from W/C to mat. Pt then propels W/C to elevator to work on [facility] Mobility on outside & varying surfaces. PT and pt discuss pt car transferring and what is needed to get pt into pt's vehicle. Pt will need to move vehicle to main entrance to be able to bring ramp out enough & have someone drive chair into car for pt. Pt propelled [facility] throughout garden before Pt then returned to Rehab unit. Pt returned to room to finish packing for tomorrow. Pt is left with all needs met at end of tx. Assessment Current Status: Good Progress Pt has made great improvement with transfers and mobility. Pt is more independent with both. Pt reports being back at [facility]. PT Short Term Goals Short Term Goals Time Frame: May 13, 2016 Wheelchair Distance: 3000' PT Strategic Accounts Manager Goals Strategic Accounts Manager Goals PT Strategic Accounts Manager Goals Time Frame: May 27, 2016 Transfers (B,C,W/C) (FIM): 3 Sit to Lying (QC): 4 Lying-Sitting on Side/Bed(QC): 4 Sit to Stand (QC): 2 Rollin Roll Left to Right (QC): 4 Chair/Ara-ch-Kjqck Xfer(QC): 2 Car Transfer (QC): 88 Wheelchair (FIM): 6 Distance: 200' Wheel 50 feet with 2 turns (QC: 6 PT Plan Problem List Problem List: Activity Tolerance, Functional Strength, Balance Treatment/Plan Treatment Plan: Continue Plan of Care Treatment Plan: Bed Mobility, Education, Functional Activity Carol, Functional Strength, Group Therapy, Gait, Safety, Therapeutic Exercise, Transfers Treatment Duration: May 27, 2016 Visits Per Week: 10-11 Minutes/Day (M-F): 60-90 Minutes/Day (Sat/Herman): 15-30 Safety Risks/Education Patient Education: Transfer Techniques, Reviewed Precautions, Correct Positioning, Safety Issues Teaching Recipient: Patient Teaching Methods: Discussion Response to Teaching: Verbalize Understanding Time/GCodes Time In: 1000 Time Out: 1130 Total Billed Treatment Time: 90 Total Billed Treatment visit, [facility] X3 (45m), FA X2 (30m) & EX (15m) ARACELIS TAI PTA May 19, 2016 14:00
[2016-05-19 18:16] VITALS: BP 169/68
[2016-05-19] MEDS: ATORVASTATIN 10 MG (LIPITOR) TABLET PO SCH (20:48)
[2016-05-20 05:53] LABS: CREATININE SERUM 2.12 MG/DL (0.60-1.30); POTASSIUM 4.4 MMOL/L (3.6-5.0)
[2016-05-20 06:00] VITALS: BP 162/67
[2016-05-20] MEDS: inSUlin ASPART (NovoLOG) 1 UNIT/0.01 ML (CHARGE PER UNIT) SC SCH ×2 (06:00→11:00)
[2016-05-20] MEDS: GLIMEPIRIDE 2 MG (AMARYL) TAB PO SCH (06:42)
[2016-05-20] MEDS: PIOGLITAZONE 30MG (ACTOS) TAB PO SCH (06:42)
[2016-05-20] MEDS: LEVOTHYROXINE 150 MCG (LEVOTHROID) TAB PO SCH (06:42)
[2016-05-20] MEDS: inSUlin NPH (NovoLIN N) 1 UNIT/0.01 ML (CHARGE PER UNIT) SQ SCH (06:43)
[2016-05-20] MEDS: inSUlin ASPART (NovoLOG) 1 UNIT/0.01 ML (CHARGE PER UNIT) SQ SCH ×2 (06:43→12:56)
--- NOTE | 2016-05-20 08:24 | Progress Note (SOAP) ---
Subjective Subjective/Events-last exam patient feeling better.. Patient not having any trouble with the left thigh. Patient takes a while to get up. Patient feels 100 percent better than when first came in Objective Exam Vital Signs Date Time Temp Pulse Resp B/P Pulse Ox O2 Delivery O2 Flow Rate FiO2 05/20/16 06:00 99.2 68 20 162/67 97 Room Air 05/19/16 20:30 Room Air 05/19/16 18:16 97.1 65 16 169/68 99 05/19/16 11:29 174/78 I & O 05/20/16 07:00 Intake Total 1495 ml Balance 1495 ml Capillary Refill : General Appearance: No Apparent Distress WD/WN Results Lab Laboratory Tests 05/20/16 05:30 Laboratory Tests 05/19/16 11:17: Glucometer 60*L 05/19/16 15:55: Glucometer 132H 05/19/16 20:24: Glucometer 76 05/20/16 05:30: Anion Gap 14, BUN/Creatinine Ratio 23, Blood Urea Nitrogen 48H, Calcium Level 9.0, Carbon Dioxide Level 18L, Chloride Level 112H, Creatinine 2.12H, Estimat Glomerular Filtration Rate 23, Glucose Level 78, Potassium Level 4.4, Sodium Level 144 05/20/16 05:31: Glucometer 88 Microbiology 05/11/16 Gram Stain - Final, Complete 05/11/16 Wound Culture - Final, Complete Staphylococcus Aureus Pseudomonas Aeruginosa Pseudomonas Putida Assessment/Plan Assessment/Plan Assess & Plan/Chief Complaint pain in the left thigh causing difficulty in getting around better Postpolio syndrome. Ambulatory dysfunction. Diabetes. Hypothyroid. Hypertension. Chronic renal insufficiency area. . 05/08/16. Post polio syndrome. Ambulatory dysfunction. Diabetes. Hypothyroid. Hypertension put on Toprol. Chronic renal sufficiency. . 05/11/16. Postpolio syndrome. Ambulatory dysfunction. Diabetes. Hypothyroid. Hypertension.. . 05/12/16. Postpolio syndrome. Ambulatory dysfunction. Diabetes. Hypothyroid. Hypertension. Still having pain in the left thigh when he tries to stand up. . 05/13/16. Pain in left thigh back. Hypertension. Diabetes. Hypothyroid. Increased the Toprol. Consult with pain management. . 05/14/16. Pain in left thigh. Patient seen by pain management. Hypertension. Has improved since yesterday. Diabetes. Culture shows 3 organisms. Patient put on 2 antibiotics to cover them. . 05/15/16. Pain in left thigh causing difficulty in getting around. Postpolio syndrome. Ambulatory dysfunction. Diabetes. Patient positive. Patient did get up a little yesterday . 05/18/16 ambulatory dysfunction. Diabetes.. Patient didn't get up a little this weekend. Patient has numbness behind the thigh. Renal insufficiency. Hypertension patient put on Norvasc. . 05/19/16. Patient states she's getting around better. Patient states she's only used to live twice the last few days post polio syndrome. Ambulatory Diabetes. Hypertension. Pain in left thigh pleasant difficulty in getting around better. . 05/20/16 patient states she's getting around better. Patient be discharged today. Patient to see her own family physician concerning renal insufficiency and diabetes. Postpolio on the right leg Patient positive. Hypertension Diagnosis/Problems: Clinical Quality Measures DVT/VTE Risk/Contraindication: Risk Factor Score Per Nursin RFS Level Per Nursing on Admit: 4+=Very High ERASTO TRAMMELL DO May 20, 2016 08:23
[2016-05-20] MEDS: VERAPAMIL SR 240 MG (CALAN SR) TAB PO SCH (08:43)
[2016-05-20] MEDS: amLODIPine 2.5MG (NORVASC) TAB PO SCH (08:43)
[2016-05-20] MEDS: meTOproloL SUCCINATE 50 MG (TOPROL XL) TAB PO SCH (08:43)
--- NOTE | 2016-05-20 08:58 | Therapy Team Discharge Summary ---
Therapy Discharge Summary Discharge Recommendations Date of Discharge Therapy D/C Recommendations: Home w/ Family Support Occupational Therapy Pt was seen for skilled OT to increase her independence in basic self care to allow her to return home safely after hospitalization. Pt functional skills affected by hx of polio and post polio syndrome. On admission, pt was independent with feeding herself, managed grooming and upper body dressing with setup assistance, needed minimal assistance with bathing, moderate assistance with lower body dressing (socks and shoes) and was dependant for toileting, toilet and shower transfers by using a sit to stand lift. By discharge she had progressed to transferring with her crutches. She was independent with eating, modified independent with grooming and bathing, setup for upper body dressing, min assist with lower body dressing (help with socks/shoes), mod assist with toileting (used toileting tool with help), close SBA with toilet transfers and min/CGA shower transfers. equipment used included toilet tool, crutches, power chair. She will need a BSC for home since she cannot safely get off her toilet. Recommend home health OT. DC OT Patient Care Goals Time Frame: May 27, 2016 Eating (FIM): 7 met Eating (QC): 6 met Groomin met Oral Hygiene (QC): 6 met Bathing(FIM): 5 met Shower/Bathe Self (QC): 5 met Upper Body Dressing(FIM): 6 not met Upper Body Dressing (QC): 6 not met Lower Body Dressing(FIM): 6 not met Lower Body Dressing (QC): 6 not met On/Off Footwear (QC): 6 not met Toileting(FIM): 6 not met Toileting Hygiene (QC): 6 not met Toilet/Commode Transfer(FIM): 6 not met Toilet/Commode Transfer (QC): 6 not met Shower Transfer(FIM): 6 not met PT Patient Care Goals Patient Care Goals PT Patient Care Goals Time Frame: May 27, 2016 Transfers (B,C,W/C) (FIM): 3 Roll Left to Right (QC): 4 Sit to Lying (QC): 4 Lying-Sitting on Side/Bed(QC): 4 Sit to Stand (QC): 2 Chair/Jun-gv-Dwjru Xfer(QC): 2 Car Transfer (QC): 88 Wheelchair (FIM): 6 Distance: 200' Wheel 50 feet with 2 turns (QC: 6 OT Prison Goals Prison Goals Time Frame: May 27, 2016 1=Demonstrate adherence to instructed precautions during ADL tasks. 2=Patient will verbalize/demonstrate understanding of assistive devices/ modifications for ADL. 3=Patient will improve strength/tolerance for activity to enable patient to perform ADL's. RADHA LIN OT May 20, 2016 08:58
--- NOTE | 2016-05-20 08:59 | PM & R (SOAP) Progress Note ---
Subjective Subjective/Events-last exam Patient was seen in her room this AM Appreciate DR mckinley note Appreciate Labs with elevated BUN/CR Patient will have f/u with PCP DR Hawkins re this.in [facility] Objective Exam Last Set of Vital Signs Vital Signs Date Time Temp Pulse Resp B/P Pulse Ox O2 Delivery O2 Flow Rate FiO2 05/20/16 06:00 99.2 68 20 162/67 97 Room Air Capillary Refill : I&O Intake and Output 05/20/16 00:00 Intake Total 1225 ml Balance 1225 ml Intake Oral 1225 ml # Voids 7 General: Alert, No Acute Distress HEENT: Atraumatic Neck: Supple Lungs: Normal Air Movement Heart: Regular Rate Abdomen: Soft Extremities: Other (chronic venousstasis with legs wrapped some weeping noted by Staff) Skin: Other (R lateral calf --- 0.8 x 0.7 x 0.1 cm, 100% regenerating tissue, partial thickness.) Neuro: Other (Weaknees both lower extremities Rt >lleft with tenderness left post thigh improved) Results Lab Laboratory Tests 05/17/16 10:59: Glucometer 96 05/17/16 16:30: Glucometer 120H 05/17/16 20:16: Glucometer 122H 05/18/16 06:12: Glucometer 121H 05/18/16 10:50: Glucometer 105 05/18/16 13:40: Alanine Aminotransferase (ALT/SGPT) 22, Albumin 3.0L, Alkaline Phosphatase 83, Anion Gap 12, Aspartate Amino Transf (AST/SGOT) 20, BUN/Creatinine Ratio 20, Basophils # (Auto) 0.0, Basophils (%) (Auto) 0, Blood Urea Nitrogen 43H, Calcium Level 9.2, Carbon Dioxide Level 20L, Chloride Level 111H, Creatinine 2.16H, Eosinophils # (Auto) 0.1, Eosinophils (%) (Auto) 2, Estimat Glomerular Filtration Rate 23, Glucose Level 155H, Hematocrit 27L, Hemoglobin 8.3L, Lymphocytes # (Auto) 1.0, Lymphocytes (%) (Auto) 14, Mean Corpuscular Hemoglobin 28, Mean Corpuscular Hemoglobin Concent 31L, Mean Corpuscular Volume 88, Mean Platelet Volume 9.8, Monocytes # (Auto) 0.7, Monocytes (%) (Auto) 9, Neutrophils # (Auto) 5.4, Neutrophils (%) (Auto) 75, Platelet Count 267, Potassium Level 4.6, Red Blood Count 3.02L, Red Cell Distribution Width 13.4, Sodium Level 143, Total Bilirubin 0.7, Total Protein 6.4, White Blood Count 7.2 05/18/16 15:55: Glucometer 168H 05/18/16 20:23: Glucometer 125H 05/19/16 06:57: Glucometer 90 05/19/16 11:17: Glucometer 60*L 05/19/16 15:55: Glucometer 132H 05/19/16 20:24: Glucometer 76 05/20/16 05:30: Anion Gap 14, BUN/Creatinine Ratio 23, Blood Urea Nitrogen 48H, Calcium Level 9.0, Carbon Dioxide Level 18L, Chloride Level 112H, Creatinine 2.12H, Estimat Glomerular Filtration Rate 23, Glucose Level 78, Potassium Level 4.4, Sodium Level 144 05/20/16 05:31: Glucometer 88 Microbiology 05/11/16 Gram Stain - Final, Complete 05/11/16 Wound Culture - Final, Complete Staphylococcus Aureus Pseudomonas Aeruginosa Pseudomonas Put[place] Assessment/Plan Assessment Post-polio syndrome Fall with left leg pain much improved IDDM Morbid obesity Chronic venous stasis BLES wraps in place RN reports weeping DR Johnson has seen and Wound culture noted-antibiotics adjusted Stahe 2 venoustasis wound RT lateral thigh DR Johnson managing Contact precautions Lumbar spinal stenosis- Conservative care. Chronic renal insufficiency Plan Discharge today to home in [facility].with family and C Patient will drive herself to home with her W/C Van with hand controls Family and friends will meet her at home to assist her Will review cuurnet meds See orders. NILDA DYER MD May 20, 2016 08:59
[2016-05-20] MEDS ORDERED: NPH,100V SQ (09:05)
[2016-05-20] MEDS ORDERED: HYDR-3812 PO (09:05)
[2016-05-20] MEDS ORDERED: INSU100V16 SQ (09:05)
[2016-05-20] MEDS ORDERED: AMLO2.5T PO (09:05)
[2016-05-20] MEDS ORDERED: METO-272 PO (09:05)
[2016-05-20] MEDS ORDERED: MICO90PO TOP (09:05)
--- NOTE | 2016-05-20 09:47 | Therapy Team Discharge Summary ---
Therapy Discharge Summary Discharge Recommendations Date of Discharge Therapy D/C Recommendations: Home w/ Family Support Physical Therapy Patient came to rehab for post-polio and debility. Upon evaluation patient performed bed mobility with min/mod assist and was dependent for transfers using a sit to stand machine, she could propel a manual wheelchair 150' with SBA , no ambulation. Patient has been performing bed mobility and transfer training , balance and endurance training, functional strengthening, gait training, and education. Patient has made fair progress and has met all of her mcc goals. Now, patient performs bed mobility with CGA/Netea, transfers with mod I using crutches from her own power wheelchair or from a surface of similar height , and is mod I with her own power wheelchair. She seems to be at pre-morbid status. Patient is being discharged from this facility today and will be discharged from PT at this time. PT Mcfp Goals Mcfp Goals PT Searchlight Operator Goals Time Frame: May 27, 2016 Transfers (B,C,W/C) (FIM): 3 Roll Left to Right (QC): 4 Sit to Lying (QC): 4 Lying-Sitting on Side/Bed(QC): 4 Sit to Stand (QC): 2 Chair/Khl-bs-Kqnsg Xfer(QC): 2 Car Transfer (QC): 88 Wheelchair (FIM): 6 Distance: 200' Wheel 50 feet with 2 turns (QC: 6 OT Searchlight Operator Goals Searchlight Operator Goals Time Frame: May 27, 2016 1=Demonstrate adherence to instructed precautions during ADL tasks. 2=Patient will verbalize/demonstrate understanding of assistive devices/ modifications for ADL. 3=Patient will improve strength/tolerance for activity to enable patient to perform ADL's. LENORE EGAN PT May 20, 2016 09:47
[2016-05-20] MEDS: MICONAZOLE 2% POWDER (DESENEX AF) 90 GM TOP SCH (10:34)
--- NOTE | 2016-06-03 12:27 | DISCHARGE SUMMARY ---
DATE OF ADMISSION: 05/05/2016 DATE OF DISCHARGE: 05/20/2016 HISTORY OF THE PRESENT ILLNESS: The patient is a 66-year-old disabled female with post polio syndrome with persistent weakness in the right leg since childhood. She has been mobile used crutches getting in and her lift recliner on to her scooter. She had a fall and pain in her posterior left thigh, which was her good leg. She was caring for her grandchildren in [place], [place] prior to this. She was dependent for mobility with complaints of pain in the posterior left thigh with weight-bearing. She was admitted to [facility] at [place], [place] on 05/03 with a diagnosis of postpolio syndrome and piriformis syndrome versus sciatica left leg. She also has chronic venostasis both legs, now wrapped. She is also insulin-dependent diabetic. No fracture was seen on imaging in the left leg. Accu-Cheks were being monitored q.i.d. before meals and at bedtime. Hemoglobin A1c in February was 6.7. The patient indicated that her blood sugars normally run in 200 to 250 range. She is morbidly obese. PAST MEDICAL HISTORY: 1. Hypertension. 2. Insulin-dependent diabetes mellitus. 3. Post polio syndrome. 4. Obesity. 5. She has had tendon transfers on her right leg as a youth for treatment of her polio which did not help her. She has been fairly dependent upon her left leg for stand pivot transfers prior to this last fall. She brings her axillary crutches with her to the rehab unit. She indicates that she has a handicap accessible wheelchair van with hand controls. MEDICAL COURSE: The patient was followed by Dr. Scott and Dr. Dunaway while on rehab unit. She had persistent left leg pain, which limited her improvement. She was seen by Dr. Freire who offered injection. She declined this. Medications were adjusted for ongoing pain management with improvement. She gradually improved and began to mobilize better. Her blood pressure was brought under better control with adjustment of medications. Her Accu-Cheks from 05/19 to 05/20 varied between 72 and 132, Serum calcium was 9.1 on 05/20. Her BUN and creatinine were elevated at 48/2.12 on 05/20. She will have follow-up with Dr. Hawkins in [facility] regarding this. Chloride was 112, CO2 18, normal serum sodium and potassium. Her CBC on 05/18 showed WBC 7.2, H&H 8.3/, platelet count 267,000. She was seen by Dr. Garcia extracorporeal circulation specialist wraps were continued. She was noted to have drainage from the wounds that grew out Staphylococcal aureus, pseudomonas aeruginosa and pseudomonas putida. Antibiotics were adjusted for this. She was afebrile during her stay. Her blood pressure on 05.20 was 163/67, pulse 68 and O2 sat 97% on room air. Respirations 20. She had x-ray of the pelvis and knee and lumbar spine on 05/12. Pelvis showed decreased volume of right hemipelvis structures which may be related to chronic nonweightbearing, no acute abnormality was noted. Bilateral knee x-rays revealed no acute abnormality on limited study. Lumbar spine CT revealed chronic -appearing bilateral L5 spondylolysis with grade 2 anterior listhesis of L5 on S1. Dr. Freire, pain specialist recommended follow-up with a spine surgeon as needed. There was with associated severe bilateral neuroforaminal narrowing. There was concern for L4-5 diffuse disc bulge with facet arthropathy and ligamentum flavum buckling which causes severe central canal narrowing. The remainder of the lumbar spine shows multilevel degenerative disease. REHABILITATION COURSE: Progress was slow at first, but she did have increased strength and endurance, and gradually improved. She was assessed by speech therapy upon admission to rehab unit found to be cognitively intact and they signed off. Dr. Garcia extracorporeal circulation specialist noted venous insufficiency also right lateral calf partial-thickness and lymphedema right leg, so alginate dressings were provided. Continue current compression. PT notes upon admission, the patient performed bed mobility with min to mod assist and was dependent for transfers using assistive stand machine. She could propel the manual wheelchair 150 feet with standby assist, no ambulation. The patient did bring in her power chair prior to discharge and friends brought in her wheelchair accessible van, car transfers were performed with this and upon discharge she could performed bed mobility with contact guard to minimal assist, transfers with modified independent using crutches, from her own power wheelchair or from a surface is similar height and she is modified independent with operating her own power wheelchair. She appeared to be a premorbid status and has friends that will meet her at home upon discharge and assisted into her house. OT notes upon admission, the patient was independent with feeding herself, managed grooming, upper body dressing, set up assist. Needed minimal assist with bathing. Mod assist for lower body dressing, socks and shoes and was dependent for toileting, limited shower transfers by using the assistive stand reid. By discharge she progressed to transferring with her crutches. She was independent with eating, modified independent with grooming, and bathing, set up for upper body dressing. Min assist for lower body dressing, required help with socks and shoes to mod assist for toileting. Use toileting tool with help. Close standby assist for toilet transfers and min assist to contact guard with shower transfers. Equipment used included toilet tool, crutches, power chair. She will need a bedside commode for home use. She cannot safely get on and off the toilet. Home health care OT was recommended. DISCHARGE INSTRUCTIONS: She was discharged to home with home health care and she will have follow-up with Dr. Hawkins PCP in [place], [place] with follow-up labs, continue current diet. The patient is weight-bearing as tolerated. Accu-Cheks as per home regimen. DISCHARGE MEDICATIONS: 1. Amlodipine 2.5 mg p.o. daily. 2. Hydrocodone APAP 5/325, 1 tablet p.o. q.4 hours p.r.n. moderate pain. 3. NovoLog insulin 5 units subcutaneous before meals. 4. NPH insulin 30 units subcutaneous daily. 5. Toprol 50 mg p.o. daily. 6. Lotrimin apply topically b.i.d. 7. Calcium carbonate with vitamin D 1 tablet p.o. b.i.d. 8. Glimepiride 2 mg p.o. daily. 9. Levothyroxine 150 mcg p.o. daily. 10. Fish oil 1000 mg p.o. daily. 11. [place]-Stones with iron tablet chewable 1 tablet p.o. daily. 12. Actos 50 mg p.o. daily. 13. Simvastatin 40 mg p.o. at bedtime. 14. Verapamil ER 240 mg p.o. daily. DISCHARGE DIAGNOSES: 1. Rehabilitation ambulatory dysfunction secondary to postpolio syndrome associated with weakness right leg. 2. Injury left thigh due to fall. 3. Chronic venostasis improved with wraps. 4. Multi-organism wound drainage, completed a course of antibiotics. 5. Fungal rash abdomen, treated. 6. Diabetes mellitus with hypertension with chronic renal sufficiency. 7. Morbid obesity. 8. BMI 66.1. 9. Hypothyroidism on replacement. 10. Anemia, improving. 11. Hypoalbuminemia, improving. 12. Hypocalcemia, improving. 13. Long-term insulin use. 14. Ulcer right calf, under treatment. 15. Neuropathy right lower extremity. 16. Lumbar spinal stenosis associated with lumbar, spondylosis and spondylolysis and degenerative disc disease of the lumbar spine. CONDITION AT DISCHARGE: Improved and stable. PROGNOSIS: Rehab prognosis appears good for some continued improvement. Unfortunately, due to her various impairments and comorbidities, morbid obesity she may require a more formal assisted living setting in the near future. Job ID: [id number] Dictated Date: 06/02/2016 20:36:28 Duck Bill Operator Date: 06/03/2016 11:53:43/stanton TERRELL
== END 2016-05-20 19:20 | disposition home health service (06) | DRG 92 ==
PROVIDERS: ADMIT Physical Medicine & Rehabilitation; ATTEND Physical Medicine & Rehabilitation
DX: G14 Postpolio syndrome (principal); R29.898 Other symptoms and signs involving the musculoskeletal system; S79.922D Unspecified injury of left thigh, subsequent encounter; I87.8 Other specified disorders of veins; L97.219 Non-pressure chronic ulcer of right calf with unspecified severity; G57.91 Unspecified mononeuropathy of right lower limb; M48.06 Spinal stenosis, lumbar region; E66.01 Morbid (severe) obesity due to excess calories; Z68.44 Body mass index [BMI] 60.0-69.9, adult; E11.29 Type 2 diabetes mellitus with other diabetic kidney complication; I12.9 Hypertensive chronic kidney disease with stage 1 through stage 4 chronic kidney disease, or unspecified chronic kidney disease; N18.9 Chronic kidney disease, unspecified; E03.9 Hypothyroidism, unspecified; D64.9 Anemia, unspecified; E88.09 Other disorders of plasma-protein metabolism, not elsewhere classified; E83.51 Hypocalcemia; B36.9 Superficial mycosis, unspecified; Z79.4 Long term (current) use of insulin; W19.XXXD Unspecified fall, subsequent encounter
CPT/HCPCS: 36415; 72100; 72131; 73521; 80048; 80053; 82962; 85025; 87070; 87077; 87186; 87205